=== PATIENT | female | born 1980 | race American Indian/Alaskan Native ===

== ENCOUNTER 2018-08-18 21:27 | Emergency (ER) | payer MEDICARE ==
[2018-08-18] MEDS ORDERED: TORADOL IV ONE (21:57)
[2018-08-18] MEDS ORDERED: ATROVENT IH ONE (21:57)
[2018-08-18] MEDS ORDERED: PROVENTIL IH ONE (21:57)
[2018-08-18] MEDS ORDERED: NACL 0.9% 500 ML 500 ML IV ONE (21:57)
[2018-08-18] MEDS ORDERED: SOLU-Medrol IV ONE (21:57)
[2018-08-18] MEDS ORDERED: MAGNESIUM SULFATE 2GM/50ML 2 GM/50 ML BAG IV ONE (21:58)
[2018-08-18 22:41] LABS: Hematocrit 31.7 % (30.3-42.9); Hemoglobin 10.3 gm/dl (10.1-14.3); Mean Corpuscular HGB Conc 33 % (30-34); Mean Corpuscular Volume 82 fl (79-97); Platelet Count 260 K/mm3 (140-440); Red Blood Count 3.86 M/mm3 (3.65-5.03); Red Cell Distribution Width 18.1 % (13.2-15.2)
[2018-08-18 22:51] LABS: INR 0.79 (0.87-1.13)
--- NOTE | 2018-08-18 23:26 | XRay Report ---
FINAL REPORT PROCEDURE: XR ABD SERIES W CXR 1V TECHNIQUE: Abdominal series complete, including supine and upright AP views of the abdomen and front al chest. HISTORY: back pain dyspnea abd pain COMPARISON: No prior studies are available for comparison. FINDINGS: Heart: Normal. Mediastinum/Vessels: Normal. Lungs/Pleural space: No focal infiltrate. Right lung granuloma. Bowel gas pattern: Nonobstructive. Masses or calcifications: None. Bony structures: No acute osseous abnormality. Other: No free intraperitoneal air. IMPRESSION: No acute abnormality.
--- NOTE | 2018-08-18 23:31 | Emergency Department Report ---
ED General Adult HPI - General Chief complaint: Chest Pain Stated complaint: BLAS Time Seen by Provider: 08/18/18 21:39 Source: patient, EMS (ems notes not available at time of chart dictation), RN notes reviewed Mode of arrival: Stretcher Limitations: No Limitations - History of Present Illness Initial comments: This is a 38-year-old female who is not known to this provider previously. Has a history of asthma, reported congestive heart failure (we do not know what her ejection fraction is), hypertension, history of appendectomy, . May lennon ve a history of achondroplasia. Patient also has a history of psychiatric disease, may have a history of narcotic dependence, but not currently. Patient reports multiple hospitalizations for asthma in the past, and 2 lifetime intubations. The patient presents to the emergency room today with a complaint of back pain, shortness of breath, wheezing, abdominal distention, dysuria, and bilateral fl ank pain. The symptoms have been present for 6-7 days. They're constant. They worsened with physical exertion, palpation, twisting, and decreased with rest, and nebulized therapy. The patient denies DVT, pulmonary embolus risk factors. To me, she makes no complaint of chest pain. The patient also endorses dysuria. -: Gradual, days(s) Location: back, abdomen Radiation: non-radiation Severity scale (0 -10): 10 Quality: aching Consistency: other Improves with: other Worsens with: other Associated Symptoms: cough, loss of appetite, malaise, shortness of breath, w eakness. denies: confusion, chest pain, diaphoresis, fever/chills, headaches, nausea/vomiting, rash, seizure, syncope - Related Data Previous Rx's Medication Instructions Recorded Last Taken Type Acetaminophen [Tylenol Arthritis] 650 mg PO Q6HR PRN #30 tablet.er 08/19/18 Unknown Rx Albuterol Sulfate [Proair 90 mcg IH Q4HR PRN #2 aer.pow.ba 08/19/18 Unknown Rx Respiclick] Ibuprofen [Motrin] 600 mg PO Q8H PRN #30 tablet 08/19/18 Unknown Rx Ipratropium [place] [Atrovent Hfa] 12.9 gm IH Q4HR #1 hfa.aer.ad 08/19/18 Unknown Rx predniSONE [Deltasone] 40 mg PO QDAY #8 tab 08/19/18 Unknown Rx Allergies Allergy/AdvReac Type Severity Reaction Status Date / Time Penicillins Allergy Anaphylaxis Verified 08/18/18 23:30 Sulfa (Sulfonamide AdvReac Anaphylaxis Verified 08/18/18 23:30 Antibiotics) ED Review of Systems ROS: Stated complaint: BLSA Other details as noted in HPI Constitutional: malaise. denies: fever Eyes: denies: vision change ENT: congestion Respiratory: shortness of breath, wheezing Cardiovascular: denies: chest pain Gastrointestinal: abdominal pain Genitourinary: urgency Musculoskeletal: back pain Skin: denies: lesions Neurological: weakness Psychiatric: anxiety ED Past Medical Hx - Past Medical History Previous Medical History?: Yes Hx Hypertension: Yes Hx Congestive Heart Failure: Yes Hx Asthma: Yes - Surgical History Past Surgical History?: Yes Hx Appendectomy: Yes Additional Surgical History: C-Sectionx2 - Social History Smoking Status: Heavy Tobacco Smoker Substance Use Type: None, Other - Medications Home Medications: Home Medications Medication Instructions Recorded Confirmed Last Taken Type Acetaminophen [Tylenol Arthritis] 650 mg PO Q6HR PRN #30 tablet.er 08/19/18 Unknown Rx Albuterol Sulfate [Proair 90 mcg IH Q4HR PRN #2 aer.pow.ba 08/19/18 Unknown Rx Respiclick] Ibuprofen [Motrin] 600 mg PO Q8H PRN #30 tablet 08/19/18 Unknown Rx Ipratropium [place] [Atrovent Hfa] 12.9 gm IH Q4HR #1 hfa.aer.ad 08/19/18 Unknown Rx predniSONE [Deltasone] 40 mg PO QDAY #8 tab 08/19/18 Unknown Rx ED Physical Exam - General Limitations: No Limitations General appearance: alert, obese - Head Head exam: Present: atraumatic, normocephalic - Eye Eye exam: Present: normal appearance - ENT ENT exam: Present: normal exam, normal orophraynx, mucous membranes moist, normal external ear exam - Neck Neck exam: Present: normal inspection, full ROM. Absent: tenderness, meningismus - Respiratory Respiratory exam: Present: respiratory distress, wheezes, rhonchi - Cardiovascular Cardiovascular Exam: Present: normal rhythm, tachycardia, normal heart sounds. Absent: systolic murmur, diastolic murmur, rubs, gallop - GI/Abdominal GI/Abdominal exam: Present: soft, distended. Absent: tenderness, guarding, rebound, rigid, pulsatile mass - Extremities Exam Extremities exam: Present: normal inspection, full ROM, other (2+ pulses noted in the bilateral upper, lower extremities. Compartments soft. No long bony tenderness. The pelvis is stable.). Absent: pedal edema, calf tenderness - Back Exam Back exam: Present: normal inspection, full ROM, tenderness, paraspinal tenderness, other (reproducible muscular tenderness). Absent: CVA tenderness (R), CVA tenderness (L), vertebral tenderness - Neurological Exam Neurological exam: Present: alert, oriented X3, other (Extraocular movements intact. Tongue midline. No facial droop. Facial sensation intact to light touch in the V1, V2, V3 distribution bilaterally. 5 and 5 strength in 4 extremities.. Sensation is intact to light touch in 4 extremities.). Absent: motor sensory deficit - Psychiatric Psychiatric exam: Present: anxious - Skin Skin exam: Present: warm, dry, intact, normal color. Absent: rash ED Course Vital Signs 08/18/18 08/18/18 08/18/18 21:45 22:00 23:00 Temperature Pulse Rate 107 H 100 H 104 H Respiratory 16 17 16 Rate Blood Pressure 112/44 107/66 Blood Pressure 112/44 [Left] O2 Sat by Pulse 95 96 Oximetry 08/18/18 08/19/18 23:53 00:44 Temperature 98.4 F Pulse Rate 96 H Respiratory 18 Rate Blood Pressure Blood Pressure 112/60 [Left] O2 Sat by Pulse 98 Oximetry - Reevaluation(s) Reevaluation #1: 08/18/18 23:29 Differential diagnosis, including but not limited to: Muscular back pain, pneumonia, acute coronary syndrome, pulmonary embolus, costochondritis, asthma exacerbation, constipation, obstruction, pyelonephritis Assessment and plan: 38-year-old female with multiple complaints, including back pain, wheezing, shortness of breath, constipation, decreased bowel movements, dysuria, flank pain, abdominal distention. History appears to be erratic, she informs me that she is not having chest pain, but she told to nurses that she is having chest pain. Reports no pulmonary embolus or DVT risk factors and she is low risk by well's criteria. We will treat her with albuterol, Atrovent, steroids, magnesium, and ketorolac. X-ray of the chest, abdomen, pelvis unremarkable. D-dimer elevated. CT scan of the chest, abdomen, pelvis pending, urinalysis pending. We will reassess after initial data points. I find the patient to be low risk by the heart score. Reevaluation #2: 08/19/18 02:08 The patient is reassessed. Wheezing has resolved. Heart rate in the high 90s. Saturating in the high 90s. CT scan of the chest is negative. CT scan of the abdomen pelvis is negative. Urinalysis not consistent with urinary tract infection. No back muscular tenderness is appreciated on repeat physical examination. On multiple repeat follow-ups, patient is resting comfortably, in her stretcher, in no acute distress. Patient is medically suitable at this point time to be discharged to follow-up. ED Medical Decision Making - Lab Data Result diagrams: 08/18/18 22:15 08/18/18 22:15 Vital Signs 08/18/18 21:45 Pulse Rate 107 H Respiratory 16 Rate Blood Pressure 112/44 [Left] O2 Sat by Pulse 95 Oximetry Lab Results 08/18/18 08/18/18 08/18/18 Range/Units 22:15 22:15 Unknown WBC 10.3 (4.5-11.0) K/mm3 RBC 3.86 (3.65-5.03) M/mm3 Hgb 10.3 (10.1-14.3) gm/dl Hct 31.7 (30.3-42.9) % MCV 82 (79-97) fl MCH 27 L (28-32) pg MCHC 33 (30-34) % RDW 18.1 H (13.2-15.2) % Plt Count 260 (140-440) K/mm3 PT 11.4 L (12.2-14.9) Sec. INR 0.79 L (0.87-1.13) D-Dimer 268.63 H (0-234) ng/mlDDU - EKG Data -: EKG Interpreted by [place] EKG shows normal: sinus rhythm - EKG Data When compared to previous EKG there are: previous EKG unavailable 08/18/18 23:31 Tachycardia, 107 bpm, normal axis, QTC within normal limits, nonspecific T-wave abnormality, abnormal EKG, not consistent with ST elevation myocardial infarction. There is no prior for comparison. - Radiology Data Radiology results: report reviewed, image reviewed interpreted by me: X-ray chest is negative for acute disease. X-ray of the abdomen and pelvis negative for acute disease, nonspecific bowel gas pattern noted. CT scan of the chest is negative for acute disease. CT scan of the abdomen and pelvis is negative for acute disease. Critical care attestation.: If time is entered above; I have spent that time in minutes in the direct care of this critically ill patient, excluding procedure time. ED Disposition Clinical Impression: Back pain, Asthma exacerbation Disposition: TO HOME OR SELFCARE Is pt being admited?: No Does the pt Need Aspirin: No Condition: Stable Instructions: Asthma (ED) Additional Instructions: Take medications as needed/directed. Rest, and avoid heavy lifting, and avoid strenuous physical activities. Use the breathing medications as needed/directed. Follow-up with a home school liaison officer, or primary care doctor within the next 3-5 days. Follow-up with her primary care doctor, or tire vulcanizer within the next month for your asthma. Return to the emergency room right away with new pain, worsened pain, migration of pain, projectile vomiting, change in mental status, confusion, new, worsening or different symptoms. Referrals: [facility] [Provider Group] - 3-5 Days [facility] [Provider Group] - 3-5 Days JANKI OCONNOR MD [Primary Care Provider] - as needed SCAR AMATO MD [Staff Physician] - as needed
[2018-08-18 23:39] LABS: BUN/Creatinine Ratio 23; Blood Urea Nitrogen 14 mg/dL (7-17); Calcium 8.8 mg/dL (8.4-10.2); Hemolysis Index 8
--- NOTE | 2018-08-19 01:10 | Cat Scan Report ---
FINAL REPORT PROCEDURE: CT ANGIO CHEST TECHNIQUE: Computerized tomographic angiography of the chest was performed after the IV injection of iodinated nonionic contrast including image processing. The image data was postprocessed using 2-dim ensional multiplanar reformatted (MPR) and 3-dimensional (MIP and/or volume rendered) techniques. HISTORY: back pain sob hypoxioa COMPARISON: No prior studies are available for comparison. FINDINGS: Heart and pericardium: Normal. Thoracic aorta: There is no evidence of pulmonary arterial emboli. Pulmonary vasculature: Normal. Lymph nodes: No enlarged thoracic lymph nodes. Lungs: The lungs are clear. No infiltrate, effusion or pneumothorax.. Pleural space: No effusion, thickening, or pneumothorax. Musculoskeletal structures: No significant abnormality. Upper abdominal structures: No significant abnormality. IMPRESSION: There is no evidence of pulmonary arterial emboli. The lungs are clear without infiltrate, effusion or pneumothorax
--- NOTE | 2018-08-19 01:16 | Cat Scan Report ---
FINAL REPORT PROCEDURE: CT ABDOMEN PELVIS W CON TECHNIQUE: Computerized axial tomography of the abdomen and pelvis was performed after the IV inject ion of iodinated nonionic contrast. HISTORY: abd pain swelling back pain COMPARISON: No prior studies are available for comparison. FINDINGS: Visualized lower thorax: No significant abnormality. Liver: Normal size and attenuation. Spleen: Normal size and attenuation. Gallbladder and biliary system: Normal. Pancreas: Normal. Adrenals: Normal. Kidneys: Normal. GI tract: No obstruction. The cecum and appendix are normal. The colon is normal.. Lymph nodes and mesentery: Normal. Vasculature: Normal. Bladder: Normal. Reproductive organs: Uterus is normal. There are bilateral ovarian cysts. The largest cyst measures 2 .5 centimeters.. Peritoneum: No free fluid. Musculoskeletal structures: No significant abnormality. Other: None. IMPRESSION: There is no evidence of intestinal or urinary tract obstruction. No ileus or enteritis. The appendix is normal. Bilateral ovarian cysts are identified, these measure up to 2 centimeters.
[2018-08-19 01:37] LABS: Bilirubin,Urine NEG (Negative); Blood,Urine NEG (Negative); Color,Urine Straw (Yellow); Protein,Urine <15 mg/dL mg/dL (Negative); Urobilinogen,Urine < 2.0 mg/dL (<2.0); WBC,Urine < 1.0 /HPF (0.0-6.0)
[2018-08-19 03:11] VITALS: BP 152/90
== END 2018-08-19 03:13 | disposition home or self-care (01) ==
LOC: ED 21:27
DX: M54.89 Other dorsalgia (principal); J45.901 Unspecified asthma with (acute) exacerbation; I11.0 Hypertensive heart disease with heart failure; I50.9 Heart failure, unspecified; Z90.49 Acquired absence of other specified parts of digestive tract; F17.200 Nicotine dependence, unspecified, uncomplicated; Z88.2 Allergy status to sulfonamides; Z88.0 Allergy status to penicillin
CPT/HCPCS: 36415; 71275; 74022; 74177; 80048; 81001; 83735; 84484; 84702; 85027; 85379; 85610; 87086; 93005; 93010; 94640; 96365; 96375; 99285; J1885; J2930; J3475; J7040; Q9967

== ENCOUNTER 2018-08-28 20:03 | Inpatient (IN) | payer MEDICARE ==
--- NOTE | 2018-08-28 20:31 | Emergency Department Report ---
Blank Doc - Documentation Documentation: This is a 38-year-old female that presents with SOB and CP x3 days. Stated has radiates to left arm. PMH: CHF, SD, COPD, asthma Sats in 94% in triage on room air. This initial assessment diagnostic orders/clinical plan/treatment(s) is/are subject to change based on patient's health status, clinical progression and re- assessment by fellow clinical providers in the ED. Further treatment and workup at subsequent clinical providers discretion. Patient/guardians urged not to elope from ED s their condition may be serious if not clinically assessed and managed. Initial orders include: 1-Patient sent to MAIN ED for further evaluation and treatment 2- EKG 3- Labs 4- CXR
[2018-08-28] MEDS ORDERED: ATROVENT IH ONE (20:47)
[2018-08-28] MEDS ORDERED: PROVENTIL IH ONE (20:47)
[2018-08-28] MEDS ORDERED: SOLU-Medrol IV ONE (21:22)
[2018-08-28] MEDS ORDERED: LASIX IV ONE (21:25)
--- NOTE | 2018-08-28 21:25 | Emergency Department Report ---
ED Shortness of Breath HPI - General Chief Complaint: Chest Pain Stated Complaint: ASTHMA/COPD Time Seen by Provider: 08/28/18 20:34 Source: patient Mode of arrival: Ambulatory Limitations: No Limitations - History of Present Illness Initial Comments: Patient is 38 years old female with history of COPD, congestive heart failure, coronary artery disease and diabetes. Patient presented to the ER complaining of shortness of breath for the last 2 days. Patient initial oxygen saturation was 92% on room air. Patient denied any fever or chills. No nausea or vomiting. Patient stated that she has been using her albuterol breathing treatment was no significant improvement. MD Complaint: shortness of breath, cough -: Last night Consistency: constant Known History Of: COPD, congestive heart failure Context: recent URI - Related Data Home Oxygen Therapy: Yes Home Oxygen Amount: 2 Liters Previous Rx's Medication Instructions Recorded Last Taken Type Acetaminophen [Tylenol Arthritis] 650 mg PO Q6HR PRN #30 tablet.er 08/19/18 Unknown Rx Albuterol Sulfate [Proair 90 mcg IH Q4HR PRN #2 aer.pow.ba 08/19/18 Unknown Rx Respiclick] Ibuprofen [Motrin] 600 mg PO Q8H PRN #30 tablet 08/19/18 Unknown Rx Ipratropium [place] [Atrovent Hfa] 12.9 gm IH Q4HR #1 hfa.aer.ad 08/19/18 Unknown Rx predniSONE [Deltasone] 40 mg PO QDAY #8 tab 08/19/18 Unknown Rx Allergies Allergy/AdvReac Type Severity Reaction Status Date / Time Penicillins Allergy Anaphylaxis Verified 08/18/18 23:30 Sulfa (Sulfonamide AdvReac Anaphylaxis Verified 08/18/18 23:30 Antibiotics) ED Review of Systems ROS: Stated complaint: ASTHMA/COPD Other details as noted in HPI Comment: All other systems reviewed and negative Constitutional: denies: chills, fever Respiratory: cough, orthopnea, shortness of breath, SOB with exertion, SOB at rest, wheezing. denies: stridor Cardiovascular: chest pain, palpitations Musculoskeletal: denies: back pain Neurological: denies: headache, weakness ED Past Medical Hx - Past Medical History Hx Hypertension: Yes Hx Heart Attack/AMI: Yes (2 ATTACKS,NO STENTS) Hx Congestive Heart Failure: Yes Hx Diabetes: Yes Hx Asthma: Yes Hx COPD: Yes - Surgical History Hx Appendectomy: Yes Additional Surgical History: C-Sectionx2 - Social History Smoking Status: Never Smoker Substance Use Type: None - Medications Home Medications: Home Medications Medication Instructions Recorded Confirmed Last Taken Type Acetaminophen [Tylenol Arthritis] 650 mg PO Q6HR PRN #30 tablet.er 08/19/18 Unknown Rx Albuterol Sulfate [Proair 90 mcg IH Q4HR PRN #2 aer.pow.ba 08/19/18 Unknown Rx Respiclick] Ibuprofen [Motrin] 600 mg PO Q8H PRN #30 tablet 08/19/18 Unknown Rx Ipratropium [place] [Atrovent Hfa] 12.9 gm IH Q4HR #1 hfa.aer.ad 08/19/18 Unknown Rx predniSONE [Deltasone] 40 mg PO QDAY #8 tab 08/19/18 Unknown Rx ED Physical Exam - General Limitations: No Limitations General appearance: alert, in distress - Head Head exam: Present: atraumatic, normocephalic, normal inspection - Eye Eye exam: Present: normal appearance, PERRL - ENT ENT exam: Present: normal exam, normal orophraynx, mucous membranes moist - Neck Neck exam: Present: normal inspection, full ROM. Absent: tenderness, meningismus, lymphadenopathy, thyromegaly - Respiratory Respiratory exam: Present: respiratory distress, wheezes, rhonchi, decreased b reath sounds, prolonged expiratory. Absent: stridor - Cardiovascular Cardiovascular Exam: Present: tachycardia, normal heart sounds - GI/Abdominal GI/Abdominal exam: Present: soft, normal bowel sounds. Absent: distended, tenderness, guarding, rebound, rigid - Extremities Exam Extremities exam: Present: normal inspection, full ROM, normal capillary refill, pedal edema. Absent: calf tenderness - Back Exam Back exam: Present: normal inspection, full ROM. Absent: tenderness, CVA tenderness (R), CVA tenderness (L), muscle spasm, paraspinal tenderness, vertebral tenderness - Neurological Exam Neurological exam: Present: alert, oriented X3, CN II-XII intact - Skin Skin exam: Present: warm, intact, normal color ED Course Vital Signs 08/28/18 08/28/18 08/28/18 20:31 21:07 21:08 Temperature 98.1 F Pulse Rate 115 H Pulse Rate [ 100 H Anterior] Respiratory 26 H Rate Respiratory 24 Rate [Anterior] Blood Pressure Blood Pressure [Left] O2 Sat by Pulse 99 98 Oximetry 08/28/18 08/28/18 08/28/18 21:29 21:30 21:45 Temperature Pulse Rate 115 H 105 H 131 H Pulse Rate [ Anterior] Respiratory 13 17 23 Rate Respiratory Rate [Anterior] Blood Pressure 158/100 Blood Pressure [Left] O2 Sat by Pulse 98 99 99 Oximetry 08/28/18 08/28/18 08/28/18 22:00 22:15 22:30 Temperature Pulse Rate Pulse Rate [ Anterior] Respiratory 15 15 17 Rate Respiratory Rate [Anterior] Blood Pressure 158/96 167/114 151/95 Blood Pressure [Left] O2 Sat by Pulse 94 97 Oximetry 08/28/18 08/28/18 22:45 22:53 Temperature Pulse Rate 110 H Pulse Rate [ Anterior] Respiratory 20 Rate Respiratory Rate [Anterior] Blood Pressure 151/95 Blood Pressure 150/97 [Left] O2 Sat by Pulse 96 93 Oximetry ED Medical Decision Making - Lab Data Result diagrams: 08/28/18 21:17 08/28/18 21:17 - EKG Data -: EKG Interpreted by [place] EKG shows normal: sinus rhythm Rate: tachycardia - EKG Data Interpretation: no acute changes - Radiology Data Radiology results: report reviewed Referring Physician: LILI CHAUHAN Patient Name: CRISTIN BEST Date of : 1980 Sex: Female Report Date: 2018-08-28 Report Status: Finalized Findings [address] [address] XRay Report Signed Patient: CRISTIN BEST MR#: [id number] : 1980 Acct:[id number] Age/Sex: 38 / F ADM Date: 08/28/18 Loc: ED Attending Dr: Ordering Physician: LILI CHAUHAN NP Date of Service: 08/28/18 Procedure(s): XR chest 1V ap Accession Number(s): [id number] cc: LILI CHAUHAN NP Fluoro Time In Minutes: FINAL REPORT PROCEDURE: XR CHEST 1V AP TECHNIQUE: Chest radiograph anteroposterior view. CPT 81068 HISTORY: Chest Pain COMPARISON: No prior studies are available for comparison. FINDINGS: Heart: Normal. Mediastinum/Vessels: Normal. Lungs/Pleural space: 4 millimeter calcific density is noted in the right lower lung consistent with an old healed granuloma. Otherwise bilateral lungs are free of infiltrates arm mass lesions. Pleural spaces are clear.. Bony thorax: No acute osseous abnormality. Life support devices: None. IMPRESSION: No acute pulmonary process. Transcribed By: [facility] Dictated By: SARA TYSON Electronically Authenticated By: SARA TYSON Signed Date/Time: 08/28/182249 DD/ 47 TD/TT: 08/28/182247 - Medical Decision Making Patient is 38 years old female with history of COPD, congestive heart failure, coronary artery disease and diabetes. Patient presented to the ER complaining of shortness of breath for the last 2 days. Patient initial oxygen saturation was 92% on room air. Patient denied any fever or chills. No nausea or vomiting. Patient stated that she has been using her albuterol breathing treatment was no significant improvement. Patient received albuterol 10 mg, Atrovent 1 mg and patient require more breathing and treatment. EKG did not show any ST elevation. A chest x-ray is negative for acute finding. First troponin is negative. I discussed the patient is Dr. Watson, she admitted to admit the patient to medical service. Critical Care Time: Yes Critical care time in (mins) excluding proc time.: 30 Critical care attestation.: If time is entered above; I have spent that time in minutes in the direct care of this critically ill patient, excluding procedure time. ED Disposition Clinical Impression: COPD with exacerbation, Chest pain Disposition: OP ADMIT IP TO THIS HOSP Is pt being admited?: Yes Condition: Stable Instructions: Chronic Obstructive Pulmonary Disease (ED), Chest Pain (ED) Referrals: OLVIN WATKINS MD [Primary Care Provider] - 3-5 Days
[2018-08-28 21:26] LABS: Hemoglobin 10.8 gm/dl (10.1-14.3); Mean Corpuscular HGB Conc 33 % (30-34); Mean Corpuscular Volume 83 fl (79-97); Platelet Count 362 K/mm3 (140-440); Red Blood Count 3.97 M/mm3 (3.65-5.03); Red Cell Distribution Width 17.9 % (13.2-15.2)
[2018-08-28 21:52] LABS: Alanine Aminotransferase 18 units/L (7-56); Albumin 4.5 g/dL (3.9-5); BUN/Creatinine Ratio 16; Blood Urea Nitrogen 13 mg/dL (7-17); Calcium 9.6 mg/dL (8.4-10.2); Hemolysis Index 6
[2018-08-28 22:13] LABS: Anisocytosis 2+; Basophils % (Manual) 0 % (0.0-1.8); Eosinophils % (Manual) 0 % (0.0-4.3); Total Cells Counted 100
--- NOTE | 2018-08-28 22:50 | XRay Report ---
FINAL REPORT PROCEDURE: XR CHEST 1V AP TECHNIQUE: Chest radiograph anteroposterior view. CPT 51672 HISTORY: Chest Pain COMPARISON: No prior studies are available for comparison. FINDINGS: Heart: Normal. Mediastinum/Vessels: Normal. Lungs/Pleural space: 4 millimeter calcific density is noted in the right lower lung consistent with a n old healed granuloma. Otherwise bilateral lungs are free of infiltrates arm mass lesions. Pleural s paces are clear.. Bony thorax: No acute osseous abnormality. Life support devices: None. IMPRESSION: No acute pulmonary process.
[2018-08-28] MEDS ORDERED: XOPENEX IH ONE (23:29)
[2018-08-29] MEDS ORDERED: MILK OF MAGNESIA PO PRN (00:21)
[2018-08-29] MEDS ORDERED: ZOFRAN IV PRN (00:21)
[2018-08-29] MEDS ORDERED: SODIUM CHLORIDE FLUSH SYRINGE 10 ML IV PRN (00:21)
[2018-08-29] MEDS ORDERED: TYLENOL PO PRN (00:21)
[2018-08-29] MEDS ORDERED: D50W (25GM) Syringe IV PRN (00:28)
--- NOTE | 2018-08-29 00:57 | History and Physical Report ---
History of Present Illness Date of examination: 08/29/18 Date of admission: 08/29/18 00:21 Chief complaint: Shortness of breath History of present illness: Patient is 38 years old female with history of COPD, coronary artery disease and diabetes who presented to the ER complaining of shortness of breath for the last 2 days. Of note, during my history taking, patient was unable to keep awake to answer my questions, so history was obtained from the chart. She has associated cough, chest pain and palpitation. No reported history of fever, chills, nausea or vomiting. Patient stated that she has been using her albuterol breathing treatment without improvement. Past History Past Medical History: CAD, COPD (on home O2 at 2 L), diabetes, hypertension, other (CHF) Past Surgical History: appendectomy, Social history: no significant social history Family history: other (could not be obtained ) Medications and Allergies Allergies Allergy/AdvReac Type Severity Reaction Status Date / Time Penicillins Allergy Anaphylaxis Verified 08/18/18 23:30 Sulfa (Sulfonamide AdvReac Anaphylaxis Verified 08/18/18 23:30 Antibiotics) Home Medications Medication Instructions Recorded Confirmed Last Taken Type Acetaminophen [Tylenol Arthritis] 650 mg PO Q6HR PRN #30 tablet.er 08/19/18 08/29/18 08/28/18 Rx Albuterol Sulfate [Proair 90 mcg IH Q4HR PRN #2 aer.pow.ba 08/19/18 08/29/18 08/28/18 Rx Respiclick] Ibuprofen [Motrin] 600 mg PO Q8H PRN #30 tablet 08/19/18 08/29/18 08/28/18 Rx Ipratropium [place] [Atrovent Hfa] 12.9 gm IH Q4HR #1 hfa.aer.ad 08/19/18 08/29/18 08/28/18 Rx predniSONE [Deltasone] 40 mg PO QDAY #8 tab 08/19/18 08/29/18 08/28/18 Rx Active Meds: Active Medications Acetaminophen (Tylenol) 650 mg PO Q4H PRN PRN Reason: Pain MILD(1-3)/Fever >100.5/SOLORZANO Acetaminophen/Hydrocodone Bitart ([place] 5/325) 1 each PO Q6H PRN PRN Reason: Pain, Moderate (4-6) Dextrose (D50w (25gm) Syringe) 50 ml IV PRN PRN PRN Reason: Hypoglycemia Enoxaparin Sodium (Lovenox) 40 mg SUB-Q DAILY [facility] Guaifenesin (Mucinex Er) 600 mg PO BID [facility] Azithromycin 500 mg/ Sodium (Chloride) 250 mls @ 250 mls/hr IV Q24HR [facility] Insulin Glargine (Lantus) 15 units SUB-Q BID [facility] Insulin Human Lispro (Humalog) 0 unit SUB-Q ACHS [facility]I; Protocol Ipratropium [place] (Atrovent) 0.5 mg IH Q6HRT [facility] Levalbuterol HCl (Xopenex) 0.63 mg IH Q6HRT [facility] Magnesium Hydroxide (Milk Of Magnesia) 30 ml PO Q4H PRN PRN Reason: Constipation Methylprednisolone Sodium Succinate (Solu-Medrol) 60 mg IV Q8HR [facility] Ondansetron HCl (Zofran) 4 mg IV Q8H PRN PRN Reason: Nausea And Vomiting Sodium Chloride (Sodium Chloride Flush Syringe 10 Ml) 10 ml IV BID [facility] Sodium Chloride (Sodium Chloride Flush Syringe 10 Ml) 10 ml IV PRN PRN PRN Reason: LINE FLUSH Review of Systems ROS unobtainable: due to mental status (unable to obtain because patient wasn't able to keep awake during questioning) Exam - Constitutional Vitals: Temp Pulse Resp BP Pulse Ox 98.1 F 110 H 20 150/97 93 08/28/18 20:31 08/28/18 22:53 08/28/18 22:53 08/28/18 22:53 08/28/18 22:53 General appearance: Present: no acute distress - EENT Eyes: Present: PERRL, EOM intact ENT: hearing intact, clear oral mucosa - Neck Neck: Present: supple, normal ROM - Respiratory Respiratory effort: normal Respiratory: bilateral: diminished - Cardiovascular Rhythm: regular (tachycardia) Heart Sounds: Present: S1 & S2. Absent: rub, click - Extremities Extremities: No edema Peripheral Pulses: within normal limits - Abdominal General gastrointestinal: Present: soft, non-tender, non-distended, normal bowel sounds Female genitourinary: Present: deferred - Integumentary Integumentary: Present: clear, warm, dry - Musculoskeletal Musculoskeletal: gait normal, strength equal bilaterally - Neurologic Neurologic: CNII-XII intact, moves all extremities Results - Labs CBC & Chem 7: 08/28/18 21:17 08/28/18 21:17 Labs: Laboratory Last Values WBC 13.6 K/mm3 (4.5-11.0) H 08/28/18 21:17 RBC 3.97 M/mm3 (3.65-5.03) 08/28/18 21:17 Hgb 10.8 gm/dl (10.1-14.3) 08/28/18 21:17 Hct 33.0 % (30.3-42.9) 08/28/18 21:17 MCV 83 fl (79-97) 08/28/18 21: MCH 27 pg (28-32) L 08/28/18 21: MCHC 33 % (30-34) 08/28/18 21: RDW 17.9 % (13.2-15.2) H 08/28/18 21:17 Plt Count 362 K/mm3 (140-440) 08/28/18 21:17 Add Manual Diff Complete 08/28/18 21:17 Total Counted 100 08/28/18 21:17 Seg Neuts % (Manual) 83.0 % (40.0-70.0) H 08/28/18 21:17 Band Neutrophils % 0 % 08/28/18 21:17 Lymphocytes % (Manual) 12.0 % (13.4-35.0) L 08/28/18 21:17 Reactive Lymphs % (Man) 0 % 08/28/18 21:17 Monocytes % (Manual) 5.0 % (0.0-7.3) 08/28/18 21:17 Eosinophils % (Manual) 0 % (0.0-4.3) 08/28/18 21:17 Basophils % (Manual) 0 % (0.0-1.8) 08/28/18 21:17 Metamyelocytes % 0 % 08/28/18 21:17 Myelocytes % 0 % 08/28/18 21:17 Promyelocytes % 0 % 08/28/18 21:17 Blast Cells % 0 % 08/28/18 21:17 Nucleated RBC % Not Reportable 08/28/18 21:17 Seg Neutrophils # Man 11.3 K/mm3 (1.8-7.7) H 08/28/18 21:17 Band Neutrophils # 0.0 K/mm3 08/28/18 21:17 Lymphocytes # (Manual) 1.6 K/mm3 (1.2-5.4) 08/28/18 21:17 Abs React Lymphs (Man) 0.0 K/mm3 08/28/18 21:17 Monocytes # (Manual) 0.7 K/mm3 (0.0-0.8) 08/28/18 21:17 Eosinophils # (Manual) 0.0 K/mm3 (0.0-0.4) 08/28/18 21:17 Basophils # (Manual) 0.0 K/mm3 (0.0-0.1) 08/28/18 21:17 Metamyelocytes # 0.0 K/mm3 08/28/18 21:17 Myelocytes # 0.0 K/mm3 08/28/18 21:17 Promyelocytes # 0.0 K/mm3 08/28/18 21:17 Blast Cells # 0.0 K/mm3 08/28/18 21:17 WBC Morphology Not Reportable 08/28/18 21:17 Hypersegmented Neuts Not Reportable 08/28/18 21:17 Hyposegmented Neuts Not Reportable 08/28/18 21:17 Hypogranular Neuts Not Reportable 08/28/18 21:17 Smudge Cells Not Reportable 08/28/18 21:17 Toxic Granulation Not Reportable 08/28/18 21:17 Toxic Vacuolation Not Reportable 08/28/18 21:17 Dohle Bodies Not Reportable 08/28/18 21:17 Pelger-Huet Anomaly Not Reportable 08/28/18 21:17 Meenu Rods Not Reportable 08/28/18 21:17 Platelet Estimate Appears normal 08/28/18 21:17 Clumped Platelets Not Reportable 08/28/18 21:17 Plt Clumps, EDTA Not Reportable 08/28/18 21:17 Large Platelets Not Reportable 08/28/18 21:17 Giant Platelets Not Reportable 08/28/18 21:17 Platelet Satelliting Not Reportable 08/28/18 21:17 Plt Morphology Comment Not Reportable 08/28/18 21:17 RBC Morphology Not Reportable 08/28/18 21:17 Dimorphic RBCs Not Reportable 08/28/18 21:17 Polychromasia Not Reportable 08/28/18 21:17 Hypochromasia Not Reportable 08/28/18 21:17 Poikilocytosis Not Reportable 08/28/18 21:17 Anisocytosis 2+ 08/28/18 21:17 Microcytosis Not Reportable 08/28/18 21:17 Macrocytosis Not Reportable 08/28/18 21:17 Spherocytes Not Reportable 08/28/18 21:17 Pappenheimer Bodies Not Reportable 08/28/18 21:17 Sickle Cells Not Reportable 08/28/18 21:17 Target Cells Not Reportable 08/28/18 21:17 Tear Drop Cells Not Reportable 08/28/18 21:17 Ovalocytes Not Reportable 08/28/18 21:17 Helmet Cells Not Reportable 08/28/18 21:17 [place] Bodies Not Reportable 08/28/18 21:17 [place] Rings Not Reportable 08/28/18 21:17 [place] Cells Not Reportable 08/28/18 21:17 Bite Cells Not Reportable 08/28/18 21:17 Crenated Cell Not Reportable 08/28/18 21:17 Elliptocytes Not Reportable 08/28/18 21:17 Acanthocytes (Spur) Not Reportable 08/28/18 21:17 Rouleaux Not Reportable 08/28/18 21:17 Hemoglobin C Crystals Not Reportable 08/28/18 21:17 Schistocytes Not Reportable 08/28/18 21:17 Malaria parasites Not Reportable 08/28/18 21:17 [place] Bodies Not Reportable 08/28/18 21:17 Hem Pathologist Commnt No 08/28/18 21:17 POC ABG pH 7.357 (7.35-7.45) 08/29/18 00:28 POC ABG pCO2 44.5 (35-45) 08/29/18 00:28 POC ABG pO2 71 (80-105) L 08/29/18 00:28 POC ABG HCO3 25.0 08/29/18 00:28 POC ABG Total CO2 26 08/29/18 00:28 POC ABG O2 Sat 93 08/29/18 00:28 POC ABG Base Excess 0 08/29/18 00:28 FiO2 100 % 08/29/18 00:28 Sodium 134 mmol/L (137-145) L 08/28/18 21:17 Potassium 4.3 mmol/L (3.6-5.0) 08/28/18 21:17 Chloride 94.5 mmol/L (98-107) L 08/28/18 21:17 Carbon Dioxide 25 mmol/L (22-30) 08/28/18 21:17 Anion Gap 19 mmol/L 08/28/18 21:17 BUN 13 mg/dL (7-17) 08/28/18 21:17 Creatinine 0.8 mg/dL (0.7-1.2) 08/28/18 21:17 Estimated GFR > 60 ml/min 08/28/18 21:17 BUN/Creatinine Ratio 16 % 08/28/18 21:17 Glucose 319 mg/dL (65-100) H 08/28/18 21:17 Calcium 9.6 mg/dL (8.4-10.2) 08/28/18 21:17 Total Bilirubin < 0.20 mg/dL (0.1-1.2) 08/28/18 21:17 AST 12 units/L (5-40) 08/28/18 21:17 ALT 18 units/L (7-56) 08/28/18 21:17 Alkaline Phosphatase 52 units/L (35-129) 08/28/18 21:17 Troponin T < 0.010 ng/mL (0.00-0.029) 08/28/18 22:59 NT-Pro-B Natriuret Pep 93.60 pg/mL (0-450) 08/28/18 21:17 Total Protein 6.9 g/dL (6.3-8.2) 08/28/18 21:17 Albumin 4.5 g/dL (3.9-5) 08/28/18 21:17 Albumin/Globulin Ratio 1.9 % 08/28/18 21:17 HCG, Qual Negative (Negative) 08/28/18 21:17 - Imaging and Cardiology Chest x-ray: report reviewed Assessment and Plan Assessment and plan: Acute COPD exacerbation, probably secondary to acute bronchitis -On IV steroid, mucinex, nebulizer breathing treatments and antibiotic Acute on chronic respiratory failure with hypoxia -Continue oxygen supplementation as needed and nebulizer breathing treatments SIRS due to noninfectious cause -We will monitor Atypical chest pain -We'll continue serial troponin level monitoring Uncontrolled hypertension -On antihypertensive, will monitor DM2 with hyperglycemia -on Lantus and SSI History of CAD, stable History of CHF, EF unknown -Echocardiogram ordered DVT prophylaxis with Lovenox Disposition: Patient will be placed on inpatient status and discharge will depend on clinical course Time spent: 38 minutes
[2018-08-29] MEDS ORDERED: LANTUS SUB-Q SCH (01:00)
[2018-08-29] MEDS: LANTUS SUB-Q SCH ×3 (01:13→21:49)
[2018-08-29] MEDS: XOPENEX IH SCH ×7 (02:50→22:40)
[2018-08-29] MEDS: ATROVENT IH SCH ×5 (02:50→19:14)
[2018-08-29] MEDS: SOLU-Medrol IV SCH ×3 (05:28→21:51)
[2018-08-29] MEDS: HumaLOG SUB-Q SCH ×4 (09:22→21:52)
[2018-08-29] MEDS: NORVASC PO SCH (12:16)
[2018-08-29] MEDS: MUCINEX ER PO SCH ×2 (12:16→21:50)
[2018-08-29] MEDS: SODIUM CHLORIDE FLUSH SYRINGE 10 ML IV SCH ×2 (12:17→21:51)
[2018-08-29] MEDS: ZITHROMAX 500 MG in NACL 0.9% 250ML 250 ML IV SCH (12:17)
[2018-08-29] MEDS: LOVENOX SUB-Q SCH (12:18)
[2018-08-29] MEDS: PROVENTIL IH PRN ×2 (14:34→17:13)
[2018-08-29] MEDS ORDERED: NON-FORMULARY (Hydroxyzine Hcl [Hydroxyzine] 50 MG) PO SCH (19:00)
[2018-08-29] MEDS: ATARAX PO SCH (23:20)
[2018-08-29] MEDS: NORCO 5/325 PO PRN (23:50)
[2018-08-30] MEDS: ATROVENT IH SCH ×4 (02:05→19:28)
[2018-08-30] MEDS: XOPENEX IH SCH ×3 (02:05→13:06)
[2018-08-30 03:59] LABS: Hemoglobin 10.7 gm/dl (10.1-14.3); Mean Corpuscular HGB Conc 32 % (30-34); Mean Corpuscular Volume 84 fl (79-97); Platelet Count 392 K/mm3 (140-440); Red Blood Count 3.92 M/mm3 (3.65-5.03); Red Cell Distribution Width 18.1 % (13.2-15.2)
[2018-08-30 04:28] LABS: BUN/Creatinine Ratio 24; Blood Urea Nitrogen 17 mg/dL (7-17); Calcium 9.2 mg/dL (8.4-10.2); Hemolysis Index 16
[2018-08-30 04:46] LABS: Anisocytosis 2+; Band Neutrophils # (Manual) 0.5 K/mm3; Basophils % (Manual) 0 % (0.0-1.8); Eosinophils % (Manual) 0 % (0.0-4.3); Ovalocytes 2+; Total Cells Counted 100
[2018-08-30 04:47] LABS: Large Platelets Few; Tear Drop Cells 1+
[2018-08-30] MEDS: ATARAX PO SCH ×4 (05:26→20:52)
[2018-08-30] MEDS: SOLU-Medrol IV SCH ×3 (05:27→21:24)
[2018-08-30] MEDS: XOPENEX IH PRN ×2 (06:21→15:36)
[2018-08-30] MEDS: HumaLOG SUB-Q SCH ×4 (09:12→21:49)
[2018-08-30] MEDS: LANTUS SUB-Q SCH ×2 (09:13→21:51)
[2018-08-30] MEDS: NORVASC PO SCH (10:12)
[2018-08-30] MEDS: ZITHROMAX 500 MG in NACL 0.9% 250ML 250 ML IV SCH (10:12)
[2018-08-30] MEDS: LOVENOX SUB-Q SCH (10:13)
[2018-08-30] MEDS: SODIUM CHLORIDE FLUSH SYRINGE 10 ML IV SCH ×2 (14:23→21:24)
[2018-08-30] MEDS: NORCO 5/325 PO PRN (15:44)
[2018-08-30] MEDS ORDERED: APRESOLINE IV PRN (16:34)
[2018-08-30] MEDS ORDERED: ROBITUSSIN AC PO PRN (16:34)
[2018-08-30] MEDS ORDERED: PERCOCET 5/325 PO PRN (16:35)
[2018-08-30] MEDS ORDERED: ATARAX PO SCH (19:00)
[2018-08-30] MEDS: MUCINEX ER PO SCH ×2 (19:05→21:18)
[2018-08-30] MEDS: BROVANA NEBU IH SCH (19:23)
[2018-08-30] MEDS: PULMICORT IH SCH (19:23)
[2018-08-30] MEDS: DUONEB *Not for PRN Use IH SCH (19:24)
[2018-08-30] MEDS ORDERED: ATIVAN IV STA (19:45)
[2018-08-30] MEDS ORDERED: ATIVAN IV PRN (19:49)
[2018-08-30 20:54] LABS: Creatine Kinase MB 2.9 ng/mL (0.0-4.0)
--- NOTE | 2018-08-30 21:08 | XRay Report ---
FINAL REPORT PROCEDURE: XR CHEST 1V AP TECHNIQUE: Chest radiograph anteroposterior view. CPT 77198 HISTORY: dyspnea COMPARISON: 08/28/2018 FINDINGS: Heart: Normal. Mediastinum/Vessels: Normal. Lungs/Pleural space: No infiltrate, effusion, or pneumothorax. Bony thorax: No acute osseous abnormality. Life support devices: None. IMPRESSION: No radiographic evidence acute cardiopulmonary abnormality.
--- NOTE | 2018-08-30 23:51 | Progress Note ---
Assessment and Plan Assessment and plan: 38F who pw sob, wheezing and cough Diagnosis COPD exacerbation acute hypoxic respiratory failure SIRS, no evidence of infection htn urgency DM type 2 with persistent hyperglycemia CHF? Plan Cont steriods, nebs and RT rx, cont oxygen supplement optimize meds for htn and DM fup echo History Interval history: Review of systems Constitutional: No fevers, no malaise, no joint pains CVS: No chest pain, no orthopnea, no dyspnea on exertion, no pedal edema GI: No abdominal pain, no diarrhea, no vomiting, no constipation Respiratory: co sob, cough and wheezing Hospitalist Physical - Physical exam Narrative exam: General.: Appears well, no distress, nontoxic HEENT: Moist mucous membranes, extraocular muscles intact, no lymphadenopathy Neck: supple Cardiac: S1-S2 heard Lungs: decreased air entry, wheezing Abdomen: soft , nontender, nondistended, bowel sounds positive Extremities: no edema clubbing or cyanosis Skin: no rash or lesions Neurologic: no gross focal deficits Psych: calm, and cooperative - Constitutional Vitals: Temp Pulse Resp BP Pulse Ox 98.1 F 109 H 27 H 179/154 100 08/30/18 16:34 08/30/18 23:48 08/30/18 23:48 08/30/18 19:54 08/30/18 23:48 General appearance: Present: no acute distress Results - Labs CBC & Chem 7: 08/30/18 03:45 08/30/18 03:45 Labs: Laboratory Last Values WBC 15.2 K/mm3 (4.5-11.0) H 08/30/18 03:45 RBC 3.92 M/mm3 (3.65-5.03) 08/30/18 03:45 Hgb 10.7 gm/dl (10.1-14.3) 08/30/18 03:45 Hct 33.0 % (30.3-42.9) 08/30/18 03:45 MCV 84 fl (79-97) 08/30/18 03:45 MCH 27 pg (28-32) L 08/30/18 03:45 MCHC 32 % (30-34) 08/30/18 03:45 RDW 18.1 % (13.2-15.2) H 08/30/18 03:45 Plt Count 392 K/mm3 (140-440) 08/30/18 03:45 Add Manual Diff Complete 08/30/18 03:45 Total Counted 100 08/30/18 03:45 Seg Neuts % (Manual) 71.0 % (40.0-70.0) H 08/30/18 03:45 Band Neutrophils % 3.0 % 08/30/18 03:45 Lymphocytes % (Manual) 16.0 % (13.4-35.0) 08/30/18 03:45 Reactive Lymphs % (Man) 0 % 08/30/18 03:45 Monocytes % (Manual) 9.0 % (0.0-7.3) H 08/30/18 03:45 Eosinophils % (Manual) 0 % (0.0-4.3) 08/30/18 03:45 Basophils % (Manual) 0 % (0.0-1.8) 08/30/18 03:45 Metamyelocytes % 1.0 % 08/30/18 03:45 Myelocytes % 0 % 08/30/18 03:45 Promyelocytes % 0 % 08/30/18 03:45 Blast Cells % 0 % 08/30/18 03:45 Nucleated RBC % Not Reportable 08/30/18 03:45 Seg Neutrophils # Man 10.8 K/mm3 (1.8-7.7) H 08/30/18 03:45 Band Neutrophils # 0.5 K/mm3 08/30/18 03:45 Lymphocytes # (Manual) 2.4 K/mm3 (1.2-5.4) 08/30/18 03:45 Abs React Lymphs (Man) 0.0 K/mm3 08/30/18 03:45 Monocytes # (Manual) 1.4 K/mm3 (0.0-0.8) H 08/30/18 03:45 Eosinophils # (Manual) 0.0 K/mm3 (0.0-0.4) 08/30/18 03:45 Basophils # (Manual) 0.0 K/mm3 (0.0-0.1) 08/30/18 03:45 Metamyelocytes # 0.2 K/mm3 08/30/18 03:45 Myelocytes # 0.0 K/mm3 08/30/18 03:45 Promyelocytes # 0.0 K/mm3 08/30/18 03:45 Blast Cells # 0.0 K/mm3 08/30/18 03:45 WBC Morphology Not Reportable 08/30/18 03:45 Hypersegmented Neuts Not Reportable 08/30/18 03:45 Hyposegmented Neuts Not Reportable 08/30/18 03:45 Hypogranular Neuts Not Reportable 08/30/18 03:45 Smudge Cells Not Reportable 08/30/18 03:45 Toxic Granulation Not Reportable 08/30/18 03:45 Toxic Vacuolation Not Reportable 08/30/18 03:45 Dohle Bodies Not Reportable 08/30/18 03:45 Pelger-[place]uet Anomaly Not Reportable 08/30/18 03:45 Meenu Rods Not Reportable 08/30/18 03:45 Platelet Estimate Appears normal 08/30/18 03:45 Clumped Platelets Not Reportable 08/30/18 03:45 Plt Clumps, EDTA Not Reportable 08/30/18 03:45 Large Platelets Few 08/30/18 03:45 Giant Platelets Not Reportable 08/30/18 03:45 Platelet Satelliting Not Reportable 08/30/18 03:45 Plt Morphology Comment Not Reportable 08/30/18 03:45 RBC Morphology Not Reportable 08/30/18 03:45 Dimorphic RBCs Not Reportable 08/30/18 03:45 Polychromasia 1+ 08/30/18 03:45 Hypochromasia Not Reportable 08/30/18 03:45 Poikilocytosis Not Reportable 08/30/18 03:45 Anisocytosis 2+ 08/30/18 03:45 Microcytosis Not Reportable 08/30/18 03:45 Macrocytosis Not Reportable 08/30/18 03:45 Spherocytes Not Reportable 08/30/18 03:45 Pappenheimer Bodies Not Reportable 08/30/18 03:45 Sickle Cells Not Reportable 08/30/18 03:45 Target Cells Not Reportable 08/30/18 03:45 Tear Drop Cells 1+ 08/30/18 03:45 Ovalocytes 2+ 08/30/18 03:45 Helmet Cells Not Reportable 08/30/18 03:45 [place] Bodies Not Reportable 08/30/18 03:45 [place] Rings Not Reportable 08/30/18 03:45 [place] Cells Not Reportable 08/30/18 03:45 Bite Cells Not Reportable 08/30/18 03:45 Crenated Cell Not Reportable 08/30/18 03:45 Elliptocytes 1+ 08/30/18 03:45 Acanthocytes (Spur) Not Reportable 08/30/18 03:45 Rouleaux Not Reportable 08/30/18 03:45 Hemoglobin C Crystals Not Reportable 08/30/18 03:45 Schistocytes Not Reportable 08/30/18 03:45 Malaria parasites Not Reportable 08/30/18 03:45 [place] Bodies Not Reportable 08/30/18 03:45 Hem Pathologist Commnt No 08/30/18 03:45 D-Dimer 168.32 ng/mlDDU (0-234) 08/30/18 20:23 POC ABG pH 7.357 (7.35-7.45) 08/29/18 00:28 POC ABG pCO2 44.5 (35-45) 08/29/18 00:28 POC ABG pO2 71 (80-105) L 08/29/18 00:28 POC ABG HCO3 25.0 08/29/18 00:28 POC ABG Total CO2 26 08/29/18 00:28 POC ABG O2 Sat 93 08/29/18 00:28 POC ABG Base Excess 0 08/29/18 00:28 FiO2 100 % 08/29/18 00:28 Sodium 137 mmol/L (137-145) 08/30/18 03:45 Potassium 4.6 mmol/L (3.6-5.0) 08/30/18 03:45 Chloride 96.8 mmol/L (98-107) L 08/30/18 03:45 Carbon Dioxide 24 mmol/L (22-30) 08/30/18 03:45 Anion Gap 21 mmol/L 08/30/18 03:45 BUN 17 mg/dL (7-17) 08/30/18 03:45 Creatinine 0.7 mg/dL (0.7-1.2) 08/30/18 03:45 Estimated GFR > 60 ml/min 08/30/18 03:45 BUN/Creatinine Ratio 24 % 08/30/18 03:45 Glucose 299 mg/dL (65-100) H 08/30/18 03:45 POC Glucose 269 (70-105) H 08/30/18 21:33 Hemoglobin A1c 7.5 % (4-6) H 08/30/18 00:18 Calcium 9.2 mg/dL (8.4-10.2) 08/30/18 03:45 Total Bilirubin < 0.20 mg/dL (0.1-1.2) 08/28/18 21:17 AST 12 units/L (5-40) 08/28/18 21:17 ALT 18 units/L (7-56) 08/28/18 21:17 Alkaline Phosphatase 52 units/L (35-129) 08/28/18 21:17 Total Creatine Kinase 416 units/L (30-135) H 08/30/18 20:23 CK-MB (CK-2) 2.9 ng/mL (0.0-4.0) 08/30/18 20:23 CK-MB (CK-2) Rel Index 0.6 (0-4) 08/30/18 20:23 Troponin T < 0.010 ng/mL (0.00-0.029) 08/30/18 20:23 NT-Pro-B Natriuret Pep 93.60 pg/mL (0-450) 08/28/18 21:17 Total Protein 6.9 g/dL (6.3-8.2) 08/28/18 21:17 Albumin 4.5 g/dL (3.9-5) 08/28/18 21:17 Albumin/Globulin Ratio 1.9 % 08/28/18 21:17 HCG, Qual Negative (Negative) 08/28/18 21:17
[2018-08-31] MEDS: ATARAX PO SCH ×3 (00:53→12:18)
[2018-08-31] MEDS: ATROVENT IH SCH (02:09)
[2018-08-31] MEDS: DUONEB *Not for PRN Use IH SCH ×3 (02:14→12:31)
[2018-08-31] MEDS ORDERED: ROBITUSSIN AC PO PRN (02:27)
[2018-08-31] MEDS: SOLU-Medrol IV SCH (05:03)
[2018-08-31] MEDS ORDERED: SPIRIVA IH SCH (09:00)
[2018-08-31] MEDS: BROVANA NEBU IH SCH (09:24)
[2018-08-31] MEDS: PULMICORT IH SCH (09:24)
--- NOTE | 2018-08-31 10:01 | Progress Note ---
Assessment and Plan Assessment and plan: 38F who pw sob, wheezing and cough Diagnosis COPD exacerbation acute hypoxic respiratory failure SIRS, no evidence of infection htn urgency DM type 2 with persistent hyperglycemia CHF was ruled out, echo wnl, no clinical evidence of CHF Plan Cont steriods, nebs and RT rx, cont oxygen supplement optimize meds for htn and DM echo was wnl History Interval history: Review of systems Constitutional: No fevers, no malaise, no joint pains CVS: No chest pain, no orthopnea, no dyspnea on exertion, no pedal edema GI: No abdominal pain, no diarrhea, no vomiting, no constipation Respiratory: co sob, cough and wheezing Hospitalist Physical - Physical exam Narrative exam: General.: Appears well, no distress, nontoxic HEENT: Moist mucous membranes, extraocular muscles intact, no lymphadenopathy Neck: supple Cardiac: S1-S2 heard Lungs: decreased air entry, wheezing Abdomen: soft , nontender, nondistended, bowel sounds positive Extremities: no edema clubbing or cyanosis Skin: no rash or lesions Neurologic: no gross focal deficits Psych: calm, and cooperative - Constitutional Vitals: Temp Pulse Resp BP Pulse Ox 97.3 F L 109 H 18 136/89 98 08/31/18 05:39 08/31/18 09:29 08/31/18 09:29 08/31/18 05:39 08/31/18 09:26 General appearance: Present: no acute distress Results - Labs CBC & Chem 7: 08/30/18 03:45 08/30/18 03:45 Labs: Laboratory Last Values WBC 15.2 K/mm3 (4.5-11.0) H 08/30/18 03:45 RBC 3.92 M/mm3 (3.65-5.03) 08/30/18 03:45 Hgb 10.7 gm/dl (10.1-14.3) 08/30/18 03:45 Hct 33.0 % (30.3-42.9) 08/30/18 03:45 MCV 84 fl (79-97) 08/30/18 03:45 MCH 27 pg (28-32) L 08/30/18 03:45 MCHC 32 % (30-34) 08/30/18 03:45 RDW 18.1 % (13.2-15.2) H 08/30/18 03:45 Plt Count 392 K/mm3 (140-440) 08/30/18 03:45 Add Manual Diff Complete 08/30/18 03:45 Total Counted 100 08/30/18 03:45 Seg Neuts % (Manual) 71.0 % (40.0-70.0) H 08/30/18 03:45 Band Neutrophils % 3.0 % 08/30/18 03:45 Lymphocytes % (Manual) 16.0 % (13.4-35.0) 08/30/18 03:45 Reactive Lymphs % (Man) 0 % 08/30/18 03:45 Monocytes % (Manual) 9.0 % (0.0-7.3) H 08/30/18 03:45 Eosinophils % (Manual) 0 % (0.0-4.3) 08/30/18 03:45 Basophils % (Manual) 0 % (0.0-1.8) 08/30/18 03:45 Metamyelocytes % 1.0 % 08/30/18 03:45 Myelocytes % 0 % 08/30/18 03:45 Promyelocytes % 0 % 08/30/18 03:45 Blast Cells % 0 % 08/30/18 03:45 Nucleated RBC % Not Reportable 08/30/18 03:45 Seg Neutrophils # Man 10.8 K/mm3 (1.8-7.7) H 08/30/18 03:45 Band Neutrophils # 0.5 K/mm3 08/30/18 03:45 Lymphocytes # (Manual) 2.4 K/mm3 (1.2-5.4) 08/30/18 03:45 Abs React Lymphs (Man) 0.0 K/mm3 08/30/18 03:45 Monocytes # (Manual) 1.4 K/mm3 (0.0-0.8) H 08/30/18 03:45 Eosinophils # (Manual) 0.0 K/mm3 (0.0-0.4) 08/30/18 03:45 Basophils # (Manual) 0.0 K/mm3 (0.0-0.1) 08/30/18 03:45 Metamyelocytes # 0.2 K/mm3 08/30/18 03:45 Myelocytes # 0.0 K/mm3 08/30/18 03:45 Promyelocytes # 0.0 K/mm3 08/30/18 03:45 Blast Cells # 0.0 K/mm3 08/30/18 03:45 WBC Morphology Not Reportable 08/30/18 03:45 Hypersegmented Neuts Not Reportable 08/30/18 03:45 Hyposegmented Neuts Not Reportable 08/30/18 03:45 Hypogranular Neuts Not Reportable 08/30/18 03:45 Smudge Cells Not Reportable 08/30/18 03:45 Toxic Granulation Not Reportable 08/30/18 03:45 Toxic Vacuolation Not Reportable 08/30/18 03:45 Dohle Bodies Not Reportable 08/30/18 03:45 Pel[place]uet Anomaly Not Reportable 08/30/18 03:45 Meenu Rods Not Reportable 08/30/18 03:45 Platelet Estimate Appears normal 08/30/18 03:45 Clumped Platelets Not Reportable 08/30/18 03:45 Plt Clumps, EDTA Not Reportable 08/30/18 03:45 Large Platelets Few 08/30/18 03:45 Giant Platelets Not Reportable 08/30/18 03:45 Platelet Satelliting Not Reportable 08/30/18 03:45 Plt Morphology Comment Not Reportable 08/30/18 03:45 RBC Morphology Not Reportable 08/30/18 03:45 Dimorphic RBCs Not Reportable 08/30/18 03:45 Polychromasia 1+ 08/30/18 03:45 Hypochromasia Not Reportable 08/30/18 03:45 Poikilocytosis Not Reportable 08/30/18 03:45 Anisocytosis 2+ 08/30/18 03:45 Microcytosis Not Reportable 08/30/18 03:45 Macrocytosis Not Reportable 08/30/18 03:45 Spherocytes Not Reportable 08/30/18 03:45 Pappenheimer Bodies Not Reportable 08/30/18 03:45 Sickle Cells Not Reportable 08/30/18 03:45 Target Cells Not Reportable 08/30/18 03:45 Tear Drop Cells 1+ 08/30/18 03:45 Ovalocytes 2+ 08/30/18 03:45 Helmet Cells Not Reportable 08/30/18 03:45 [place] Bodies Not Reportable 08/30/18 03:45 [place] Rings Not Reportable 08/30/18 03:45 [place] Cells Not Reportable 08/30/18 03:45 Bite Cells Not Reportable 08/30/18 03:45 Crenated Cell Not Reportable 08/30/18 03:45 Elliptocytes 1+ 08/30/18 03:45 Acanthocytes (Spur) Not Reportable 08/30/18 03:45 Rouleaux Not Reportable 08/30/18 03:45 Hemoglobin C Crystals Not Reportable 08/30/18 03:45 Schistocytes Not Reportable 08/30/18 03:45 Malaria parasites Not Reportable 08/30/18 03:45 [place] Bodies Not Reportable 08/30/18 03:45 Hem Pathologist Commnt No 08/30/18 03:45 D-Dimer 168.32 ng/mlDDU (0-234) 08/30/18 20:23 POC ABG pH 7.357 (7.35-7.45) 08/29/18 00:28 POC ABG pCO2 44.5 (35-45) 08/29/18 00:28 POC ABG pO2 71 (80-105) L 08/29/18 00:28 POC ABG HCO3 25.0 08/29/18 00:28 POC ABG Total CO2 26 08/29/18 00:28 POC ABG O2 Sat 93 08/29/18 00:28 POC ABG Base Excess 0 08/29/18 00:28 FiO2 100 % 08/29/18 00:28 Sodium 137 mmol/L (137-145) 08/30/18 03:45 Potassium 4.6 mmol/L (3.6-5.0) 08/30/18 03:45 Chloride 96.8 mmol/L (98-107) L 08/30/18 03:45 Carbon Dioxide 24 mmol/L (22-30) 08/30/18 03:45 Anion Gap 21 mmol/L 08/30/18 03:45 BUN 17 mg/dL (7-17) 08/30/18 03:45 Creatinine 0.7 mg/dL (0.7-1.2) 08/30/18 03:45 Estimated GFR > 60 ml/min 08/30/18 03:45 BUN/Creatinine Ratio 24 % 08/30/18 03:45 Glucose 299 mg/dL (65-100) H 08/30/18 03:45 POC Glucose 263 (70-105) H 08/31/18 08:17 Hemoglobin A1c 7.5 % (4-6) H 08/30/18 00:18 Calcium 9.2 mg/dL (8.4-10.2) 08/30/18 03:45 Total Bilirubin < 0.20 mg/dL (0.1-1.2) 08/28/18 21:17 AST 12 units/L (5-40) 08/28/18 21:17 ALT 18 units/L (7-56) 08/28/18 21:17 Alkaline Phosphatase 52 units/L (35-129) 08/28/18 21:17 Total Creatine Kinase 416 units/L (30-135) H 08/30/18 20:23 CK-MB (CK-2) 2.9 ng/mL (0.0-4.0) 08/30/18 20:23 CK-MB (CK-2) Rel Index 0.6 (0-4) 08/30/18 20:23 Troponin T < 0.010 ng/mL (0.00-0.029) 08/30/18 20:23 NT-Pro-B Natriuret Pep 93.60 pg/mL (0-450) 08/28/18 21:17 Total Protein 6.9 g/dL (6.3-8.2) 08/28/18 21:17 Albumin 4.5 g/dL (3.9-5) 08/28/18 21:17 Albumin/Globulin Ratio 1.9 % 08/28/18 21:17 HCG, Qual Negative (Negative) 08/28/18 21:17
[2018-08-31] MEDS: LANTUS SUB-Q SCH (10:20)
[2018-08-31] MEDS: LOVENOX SUB-Q SCH (10:21)
[2018-08-31] MEDS: HumaLOG SUB-Q SCH (10:21)
[2018-08-31] MEDS: NORVASC PO SCH (10:21)
--- NOTE | 2018-08-31 12:10 | Discharge Summary ---
Providers - Providers Date of Admission: 08/29/18 00:21 Attending physician: RENETTA OLIVEIRA MD Primary care physician: OLVIN WATKINS Hospitalization Condition: Stable Hospital course: 38F who pw sob, wheezing and cough Diagnosis COPD exacerbation acute hypoxic respiratory failure SIRS, no evidence of infection htn urgency DM type 2 with persistent hyperglycemia Plan She received steriods, nebs and RT rx, she was treated with oxygen, and then weaned off optimize meds for htn and DM Echocardiogram showed normal systolic and diastolic function Disposition: DC- TO HOME OR SELFCARE Time spent for discharge: 33 mins Core Measure Documentation - Palliative Care Palliative Care/ Comfort Measures: Not Applicable - Core Measures Any of the following diagnoses?: none Exam - Constitutional Vitals: Temp Pulse Resp BP Pulse Ox 97.3 F L 109 H 18 136/89 98 08/31/18 05:39 08/31/18 09:29 08/31/18 09:29 08/31/18 05:39 08/31/18 09:26 General appearance: Present: no acute distress, well-nourished - EENT Eyes: Present: PERRL ENT: hearing intact, clear oral mucosa - Neck Neck: Present: supple, normal ROM - Respiratory Respiratory effort: normal Respiratory: bilateral: CTA - Cardiovascular Heart Sounds: Present: S1 & S2. Absent: rub, click - Extremities Extremities: pulses symmetrical, No edema Peripheral Pulses: within normal limits - Abdominal General gastrointestinal: Present: soft, non-tender, non-distended, normal bowel sounds Female genitourinary: Present: normal - Integumentary Integumentary: Present: clear, warm, dry - Musculoskeletal Musculoskeletal: gait normal, strength equal bilaterally - Psychiatric Psychiatric: appropriate mood/affect, intact judgment & insight - Neurologic Neurologic: CNII-XII intact, moves all extremities Plan Follow up with: OLVIN WATKINS MD [Primary Care Provider] - 3-5 Days Prescriptions: Advair Diskus 250-50 mcg 2 puff IH BID #1 RX: ALBUTEROL Inhaler(NF) [VENTOLIN Inhaler(NF)] 1 puff IH Q4H #1 inha RX: ALBUTEROL NEB's [Proventil 0.083% NEBS] 2.5 mg IH TID PRN #120 neb PRN Reason: Wheezing RX: Insulin Glargine [Lantus VIAL] 15 units SUB-Q BID #1 vial RX: oxyCODONE /ACETAMINOPHEN [Percocet 5/325 mg] 1 tab PO Q6H PRN #10 tablet PRN Reason: Pain, Moderate (4-6) Prednisone [predniSONE 10 mg (6-Day Pack, 21 Tabs)] 10 mg PO .TAPER #1 tab.ds.pk RX: Tiotropium [Spiriva] 1 puff IH Q24HRT #30 cap Other Discharge Orders: Nebulizer (Amb) Location: None Selected
[2018-08-31] MEDS: MUCINEX ER PO SCH (12:18)
[2018-08-31] MEDS: ZITHROMAX 500 MG in NACL 0.9% 250ML 250 ML IV SCH (12:19)
[2018-08-31 13:19] VITALS: BP 127/71
== END 2018-08-31 14:15 | disposition home or self-care (01) | DRG 189 ==
LOC: ED 20:03 → 3A 08-29 00:21
PROVIDERS: ADMIT Internal Medicine; ATTEND Internal Medicine
PROC: 4A033R1 Measurement of Arterial Saturation, Peripheral, Percutaneous Approach (ICD-10-PCS; 2018-08-28)
PROC: 5A09357 Assistance with Respiratory Ventilation, Less than 24 Consecutive Hours, Continuous Positive Airway Pressure (ICD-10-PCS; principal; 2018-08-30)
PROC: 5A09357 Assistance with Respiratory Ventilation, Less than 24 Consecutive Hours, Continuous Positive Airway Pressure (ICD-10-PCS; 2018-08-31)
DX: J96.21 Acute and chronic respiratory failure with hypoxia (principal); J44.1 Chronic obstructive pulmonary disease with (acute) exacerbation; R65.10 Systemic inflammatory response syndrome (SIRS) of non-infectious origin without acute organ dysfunction; E11.65 Type 2 diabetes mellitus with hyperglycemia; I50.9 Heart failure, unspecified; I11.0 Hypertensive heart disease with heart failure; R07.89 Other chest pain; I16.0 Hypertensive urgency; J20.9 Acute bronchitis, unspecified; I25.10 Atherosclerotic heart disease of native coronary artery without angina pectoris; Z99.81 Dependence on supplemental oxygen; Z88.0 Allergy status to penicillin; Z88.2 Allergy status to sulfonamides; I25.2 Old myocardial infarction; Z90.49 Acquired absence of other specified parts of digestive tract; Z79.4 Long term (current) use of insulin
CPT/HCPCS: 36415; 71045; 80048; 80053; 82550; 82553; 82803; 82962; 83036; 83880; 84484; 84703; 85007; 85025; 85379; 93005; 93010; 93306; 94640; 94644; 94660; 94760; G0378; J0456; J1650; J1815; J1940; J2060; J2920; J2930; J7050

== ENCOUNTER 2018-09-26 15:33 | Emergency (ER) | payer MEDICARE ==
[2018-09-26 16:23] LABS: Basophils # (Auto) 0.1 K/mm3 (0.0-0.1); Basophils % (Auto) 1.5 % (0.0-1.8); Eosinophils # (Auto) 0.2 K/mm3 (0.0-0.4); Eosinophils % (Auto) 2.6 % (0.0-4.3); Hematocrit 32.8 % (30.3-42.9); Hemoglobin 10.6 gm/dl (10.1-14.3); Lymphocytes # (Auto) 2.2 K/mm3 (1.2-5.4); Lymphocytes % (Auto) 34.5 % (13.4-35.0); Mean Corpuscular HGB Conc 33 % (30-34); Mean Corpuscular Volume 84 fl (79-97); Monocytes # (Auto) 0.7 K/mm3 (0.0-0.8); Monocytes % (Auto) 11.7 % (0.0-7.3); Platelet Count 301 K/mm3 (140-440); Red Blood Count 3.92 M/mm3 (3.65-5.03); Red Cell Distribution Width 16.5 % (13.2-15.2)
[2018-09-26] MEDS ORDERED: MAGNESIUM SULFATE 2GM/50ML 2 GM/50 ML BAG IV ONE (16:33)
[2018-09-26] MEDS ORDERED: SOLU-Medrol IV ONE (16:33)
[2018-09-26] MEDS ORDERED: NACL 0.9% 500 ML 500 ML IV ONE (16:33)
[2018-09-26] MEDS ORDERED: PROVENTIL IH ONE (16:33)
[2018-09-26] MEDS ORDERED: ATROVENT IH ONE (16:33)
--- NOTE | 2018-09-26 16:34 | Emergency Department Report ---
ED General Adult HPI - General Chief complaint: Chest Pain Stated complaint: CHEST PAIN Time Seen by Provider: 09/26/18 16:14 Source: patient, EMS, RN notes reviewed, old records reviewed Mode of arrival: Stretcher Limitations: No Limitations - History of Present Illness Initial comments: This is a 38-year-old female. I have evaluated this patient in the past. Patient has a history of asthma, multiple hospitalizations, hypertension, appendectomy, , reported history of congestive heart failure (patient had echocardiogram in August. Ejection fraction of 55% to 60%, with normal RV systolic function, normal LV diastolic function), psychiatric disease, obesity, questionable coronary artery disease Primary care Dr.: Patient can't remember Cardiology: [facility], patient reports following up with them within the last month, and being presumptively diagnosed with costochondritis Pulmonology sleep specialist, Dr. Stephen in [place], patient reports that she had a sleep study yesterday. The patient is brought to the hospital by emergency medical services with a primary complaint of asthma, wheezing, shortness of breath. The symptoms have been going on for 1-2 days. They are constant, worse with physical exertion, decreased with rest, and decreased with nebulizer therapy. Patient was evaluated in August by myself for similar complaints. Patient also complains of chest pain. The chest pain essential and reportedly radiates to the bilateral arms and bilateral legs. Chest pain is present for "months." Patient also reports no vomiting, no diaphoresis, no oral contraceptive use, and denies DVT, pulmonary embolus risk factors, with the exception of a recent hospitalization. Of note, the patient had a negative CT angiogram of the chest in August. Patient also complains of feeling potentially sleepy. She reports that her outpatient sleep doctor is evaluating this. The patient also endorses no homicidality, no suicidality, but reports that her psychiatrist, who is in [place], has her on a new medication, latuda, and she reports that she believes that this is causing visual hallucinations. She denies lower abdominal pain, focal extremity weakness, numbness and urinary symptoms. -: Sudden Location: chest Radiation: extremity Severity scale (0 -10): 8 Quality: aching Consistency: intermittent Improves with: other Worsens with: other - Related Data Home Medications Medication Instructions Recorded Confirmed Last Taken Depakote 150 mg PO QHS 08/30/18 08/30/18 Unknown Furosemide [Lasix] 20 mg PO QDAY 08/30/18 08/30/18 Unknown Gabapentin [Neurontin] 300 mg PO BID 08/30/18 08/30/18 Unknown Humalog See Protocol SQ ACHS 08/30/18 08/30/18 Unknown Ibuprofen Ib 800 mg PO BID 08/30/18 08/30/18 Unknown Lipitor 20 mg PO QHS 08/30/18 08/30/18 Unknown Metformin ER (Nf) 500 mg PO BID 08/30/18 08/30/18 Unknown Metoprolol 25 mg PO BID 08/30/18 08/30/18 Unknown Montelukast [Singulair] 10 mg PO QHS 08/30/18 08/30/18 Unknown Multivitamin 1 tab PO DAILY 08/30/18 08/30/18 Unknown Seroquel 100 mg PO QHS 08/30/18 08/30/18 Unknown Valtrex 500 mg PO BID 08/30/18 08/30/18 Unknown Zantac 150 MG TAB 150 mg PO QHS 08/30/18 08/30/18 Unknown Zoloft 150 mg PO QDAY 08/30/18 08/30/18 Unknown hydrOXYzine 25 - 50 mg PO Q6HR PRN 08/30/18 08/30/18 Unknown traZODone 100 mg PO QHS 08/30/18 08/30/18 Unknown Previous Rx's Medication Instructions Recorded Last Taken Type Acetaminophen [Tylenol Arthritis] 650 mg PO Q6HR PRN #30 tablet.er 08/19/18 08/28/18 Rx Albuterol Sulfate [Proair 90 mcg IH Q4HR PRN #2 aer.pow.ba 08/19/18 08/28/18 Rx Respiclick] Ibuprofen [Motrin 600 MG tab] 600 mg PO Q8H PRN #30 tablet 08/19/18 08/28/18 Rx Ipratropium Lee [Atrovent Hfa] 12.9 gm IH Q4HR #1 hfa.aer.ad 08/19/18 08/28/18 Rx ALBUTEROL Inhaler(NF) [VENTOLIN 1 puff IH Q4H #1 inha 08/31/18 Unknown Rx Inhaler(NF)] ALBUTEROL NEB's [Proventil 0.083% 2.5 mg IH TID PRN #120 neb 08/31/18 Unknown Rx NEBS] Advair Diskus 250-50 mcg 2 puff IH BID #1 08/31/18 Unknown Rx Insulin Glargine [Lantus VIAL] 15 units SUB-Q BID #1 vial 08/31/18 Unknown Rx Prednisone [predniSONE 10 mg 10 mg PO .TAPER #1 tab.ds.pk 08/31/18 Unknown Rx (6-Day Pack, 21 Tabs)] Tiotropium [Spiriva] 1 puff IH Q24HRT #30 cap 08/31/18 Unknown Rx oxyCODONE /ACETAMINOPHEN [Percocet 1 tab PO Q6H PRN #10 tablet 08/31/18 Unknown Rx 5/325 mg] Acetaminophen [Tylenol Arthritis] 650 mg PO Q6HR PRN #30 tablet.er 09/27/18 Unknown Rx Albuterol Sulfate [Albuterol 0.63% 0.63 mg IH Q4HR PRN #2 ml 09/27/18 Unknown Rx NEBS] Albuterol Sulfate [Proair 90 mcg IH Q4HR PRN #2 aer.pow.ba 09/27/18 Unknown Rx Respiclick] predniSONE [Deltasone] 40 mg PO QDAY #8 tab 09/27/18 Unknown Rx Allergies Allergy/AdvReac Type Severity Reaction Status Date / Time Penicillins Allergy Anaphylaxis Verified 08/18/18 23:30 Sulfa (Sulfonamide AdvReac Anaphylaxis Verified 08/18/18 23:30 Antibiotics) ED Review of Systems ROS: Stated complaint: CHEST PAIN Other details as noted in HPI Constitutional: malaise, weakness. denies: fever ENT: congestion Respiratory: cough, shortness of breath, wheezing Cardiovascular: chest pain Gastrointestinal: denies: abdominal pain, nausea Musculoskeletal: denies: as per HPI, arthralgia, myalgia Skin: denies: lesions Neurological: weakness Psychiatric: anxiety, visual hallucinations. denies: depression, auditory hallucinations, homicidal thoughts, suicidal thoughts ED Past Medical Hx - Past Medical History Previous Medical History?: Yes Hx Hypertension: Yes Hx Heart Attack/AMI: Yes (2 ATTACKS,NO STENTS) Hx Congestive Heart Failure: Yes Hx Diabetes: Yes Hx Asthma: Yes Hx COPD: Yes Additional medical history: high cholestrol - Surgical History Past Surgical History?: Yes Hx Appendectomy: Yes Additional Surgical History: C-Sectionx2. d&c - Social History Smoking Status: Never Smoker Substance Use Type: None - Medications Home Medications: Home Medications Medication Instructions Recorded Confirmed Last Taken Type Acetaminophen [Tylenol Arthritis] 650 mg PO Q6HR PRN #30 tablet.er 08/19/18 08/29/18 08/28/18 Rx Albuterol Sulfate [Proair 90 mcg IH Q4HR PRN #2 aer.pow.ba 08/19/18 08/29/18 08/28/18 Rx Respiclick] Ibuprofen [Motrin 600 MG tab] 600 mg PO Q8H PRN #30 tablet 08/19/18 08/29/18 08/28/18 Rx Ipratropium Lee [Atrovent Hfa] 12.9 gm IH Q4HR #1 hfa.aer.ad 08/19/18 08/29/18 08/28/18 Rx Depakote 150 mg PO QHS 08/30/18 08/30/18 Unknown History Furosemide [Lasix] 20 mg PO QDAY 08/30/18 08/30/18 Unknown History Gabapentin [Neurontin] 300 mg PO BID 08/30/18 08/30/18 Unknown History Humalog See Protocol SQ ACHS 08/30/18 08/30/18 Unknown History Ibuprofen Ib 800 mg PO BID 08/30/18 08/30/18 Unknown History Lipitor 20 mg PO QHS 08/30/18 08/30/18 Unknown History Metformin ER (Nf) 500 mg PO BID 08/30/18 08/30/18 Unknown History Metoprolol 25 mg PO BID 08/30/18 08/30/18 Unknown History Montelukast [Singulair] 10 mg PO QHS 08/30/18 08/30/18 Unknown History Multivitamin 1 tab PO DAILY 08/30/18 08/30/18 Unknown History Seroquel 100 mg PO QHS 08/30/18 08/30/18 Unknown History Valtrex 500 mg PO BID 08/30/18 08/30/18 Unknown History Zantac 150 MG TAB 150 mg PO QHS 08/30/18 08/30/18 Unknown History Zoloft 150 mg PO QDAY 08/30/18 08/30/18 Unknown History hydrOXYzine 25 - 50 mg PO Q6HR PRN 08/30/18 08/30/18 Unknown History traZODone 100 mg PO QHS 08/30/18 08/30/18 Unknown History ALBUTEROL Inhaler(NF) [VENTOLIN 1 puff IH Q4H #1 inha 08/31/18 Unknown Rx Inhaler(NF)] ALBUTEROL NEB's [Proventil 0.083% 2.5 mg IH TID PRN #120 neb 08/31/18 Unknown R x NEBS] Advair Diskus 250-50 mcg 2 puff IH BID #1 08/31/18 Unknown Rx Insulin Glargine [Lantus VIAL] 15 units SUB-Q BID #1 vial 08/31/18 Unknown Rx Prednisone [predniSONE 10 mg 10 mg PO .TAPER #1 tab.ds.pk 08/31/18 Unknown Rx (6-Day Pack, 21 Tabs)] Tiotropium [Spiriva] 1 puff IH Q24HRT #30 cap 08/31/18 Unknown Rx oxyCODONE /ACETAMINOPHEN [Percocet 1 tab PO Q6H PRN #10 tablet 08/31/18 Unknown Rx 5/325 mg] Acetaminophen [Tylenol Arthritis] 650 mg PO Q6HR PRN #30 tablet.er 09/27/18 Unknown Rx Albuterol Sulfate [Albuterol 0.63% 0.63 mg IH Q4HR PRN #2 ml 09/27/18 Unknown Rx NEBS] Albuterol Sulfate [Proair 90 mcg IH Q4HR PRN #2 aer.pow.ba 09/27/18 Unknown Rx Respiclick] predniSONE [Deltasone] 40 mg PO QDAY #8 tab 09/27/18 Unknown Rx ED Physical Exam - General Limitations: No Limitations, Other (patient is sleepy but arousable.) General appearance: alert, obese - Head Head exam: Present: atraumatic, normocephalic - Eye Eye exam: Present: normal appearance, PERRL, EOMI, other (visual acuity intact to finger counting, color perception, reading at a close distance). Absent: nystagmus - ENT ENT exam: Present: normal exam, normal orophraynx, mucous membranes moist, normal external ear exam - Neck Neck exam: Present: normal inspection, full ROM. Absent: tenderness, meningismus - Respiratory Respiratory exam: Present: wheezes, rhonchi. Absent: respiratory distress - Cardiovascular Cardiovascular Exam: Present: normal rhythm, tachycardia, normal heart sounds. Absent: systolic murmur, diastolic murmur, rubs, gallop - GI/Abdominal GI/Abdominal exam: Present: soft. Absent: distended, tenderness, guarding, rebound, rigid, pulsatile mass - Extremities Exam Extremities exam: Present: normal inspection, full ROM, other (2+ pulses noted in the bilateral upper, lower extremities. Compartments soft. No long bony tenderness. The pelvis is stable.). Absent: pedal edema, joint swelling, calf tenderness - Back Exam Back exam: Present: normal inspection, full ROM. Absent: tenderness, CVA tenderness (R), paraspinal tenderness, vertebral tenderness - Neurological Exam Neurological exam: Present: alert, oriented X3, CN II-XII intact, other (Ext raocular movements intact. Tongue midline. No facial droop. Facial sensation intact to light touch in the V1, V2, V3 distribution bilaterally. 5 and 5 strength in 4 extremities.. Sensation is intact to light touch in 4 extremities.). Absent: motor sensory deficit - Psychiatric Psychiatric exam: Present: flat affect. Absent: homicidal ideation, suicidal ideation - Skin Skin exam: Present: warm, dry, intact, normal color. Absent: rash ED Course Vital Signs 09/26/18 09/26/18 09/26/18 15:43 15:52 16:01 Temperature 98.2 F Pulse Rate 107 H 90 104 H Respiratory 20 19 22 Rate Blood Pressure 115/75 104/59 O2 Sat by Pulse 94 96 93 Oximetry 09/26/18 09/26/18 09/26/18 16:15 16:31 16:45 Temperature Pulse Rate 101 H 106 H 101 H Respiratory 15 21 18 Rate Blood Pressure O2 Sat by Pulse 93 100 94 Oximetry 09/26/18 09/26/18 09/26/18 17:01 17:15 17:31 Temperature Pulse Rate 95 H 92 H 97 H Respiratory 17 16 17 Rate Blood Pressure 121/58 121/58 121/58 O2 Sat by Pulse 92 100 94 Oximetry 09/26/18 09/26/18 09/26/18 17:45 18:00 18:15 Temperature Pulse Rate 109 H 94 H 99 H Respiratory 14 15 18 Rate Blood Pressure 121/58 104/64 104/64 O2 Sat by Pulse 93 97 92 Oximetry 09/26/18 09/26/18 09/26/18 18:31 18:45 19:01 Temperature Pulse Rate 99 H 100 H 101 H Respiratory 17 16 14 Rate Blood Pressure 104/64 104/64 103/60 O2 Sat by Pulse 100 99 97 Oximetry 09/26/18 09/26/18 09/26/18 19:45 20:01 20:15 Temperature Pulse Rate 106 H 107 H 107 H Respiratory 11 L 14 15 Rate Blood Pressure O2 Sat by Pulse 93 Oximetry 09/26/18 09/26/18 09/26/18 20:31 20:45 22:26 Temperature Pulse Rate 113 H 106 H Respiratory 13 15 Rate Blood Pressure O2 Sat by Pulse 95 Oximetry - Reevaluation(s) Reevaluation #1: 09/26/18 20:09 Differential diagnosis, including but not limited to: Asthma exacerbation, pneumonia, costochondritis, acute coronary syndrome, pulmonary embolus, obstructive sleep apnea, pulmonary hypertension, obesity hypoventilation syndrome, medication side effect Assessment and plan: 38-year-old female with a primary complaint of wheezing, cough, shortness of breath, secondary complaints of chest pain, and visual marifer lucinations. Complaint #1, shortness of breath and wheezing. Patient has known history of asthma. We will treat her with albuterol, Atrovent, steroids and magnesium. Patient is sleepy but arousable, most likely has sleep apnea, she reports an outpatient sleep study yesterday. Once she has completed her nebulizer therapy, we will give her a trial of ambulation on room air. Complaint #2, chest pain. Patient had a negative CT scan of the chest last month. She has reported to me that she has followed up with her outpatient respiratory therapist assistant for her chronic chest pain. I find the patient to be low risk by well's criteria, low risk by the DARRYL score, and low risk by heart score. She had an elevated d-dimer, thus the need for CT scan of the chest, especially given obesity, poor ambulatory status, and recent hospitalization last month. Troponin negative 1, EKG appears to be unchanged from prior, patient in my opinion at low risk for major adverse cardiac event. She also reports that her chest pain is chronic. Assuming 2 negative troponins, unchanged EKG 2, patient medically suitable to follow-up with an outpatient respiratory therapist assistant. Complaint #3, nonspecific visual hallucinations, after being on a new psychiatric medication, latuda The patient is alert and oriented 3, clinically sober, not homicidal or suicidal, does not meet 1013 criteria at this time. I have counseled the ryan tamica to follow up with her outpatient psychiatrist to have her medications reevaluated. She does not require emergent psychiatric consultation, evaluation at this time. GCS of 15, clinically sober, we will obtain noncontrast CT scan of the brain to evaluate for structural intracranial lesions. 09/26/18 20:14 Reevaluation #2: 09/26/18 20:29 Repeat EKG appears to be unremarkable, unchanged when compared to prior. Reevaluation #3: 09/27/18 00:20 Troponin negative 3. Breath sounds improved. Able to ambulate without significant desaturation. Repeat EKG unchanged from prior. Patient sleeping comfortably in stretcher. Patient is medically suitable to be discharged with instructions to follow up. She will need to follow up with her outpatient respiratory therapist assistant, psychiatrist, pulmonary physician, sleep specialist. - EJ/Peripheral Line Arm R Time Out Performed: Yes Indications: nurses unable to establis Skin Cleansed in Sterile Fashion: Yes Size: 20 Dressing Placed: Tegaderm Patient Tolerated Procedure: well ED Medical Decision Making - Lab Data Result diagrams: 09/26/18 16:09 09/26/18 16:09 Vital Signs 09/26/18 15:43 Temperature 98.2 F Pulse Rate 107 H Respiratory 20 Rate Blood Pressure 115/75 O2 Sat by Pulse 94 Oximetry Lab Results 09/26/18 09/26/18 09/26/18 Range/Units 16:09 16:09 16:09 WBC 6.3 (4.5-11.0) K/mm3 RBC 3.92 (3.65-5.03) M/mm3 Hgb 10.6 (10.1-14.3) gm/dl Hct 32.8 (30.3-42.9) % MCV 84 (79-97) fl MCH 27 L (28-32) pg MCHC 33 (30-34) % RDW 16.5 H (13.2-15.2) % Plt Count 301 (140-440) K/mm3 Lymph % (Auto) 34.5 (13.4-35.0) % [place] % (Auto) 11.7 H (0.0-7.3) % Eos % (Auto) 2.6 (0.0-4.3) % Baso % (Auto) 1.5 (0.0-1.8) % Lymph # 2.2 (1.2-5.4) K/mm3 [place] # 0.7 (0.0-0.8) K/mm3 Eos # 0.2 (0.0-0.4) K/mm3 Baso # 0.1 (0.0-0.1) K/mm3 Seg Neutrophils % 49.7 (40.0-70.0) % Seg Neutrophils # 3.1 (1.8-7.7) K/mm3 PT (12.2-14.9) Sec. INR (0.87-1.13) D-Dimer (0-234) ng/mlDDU Sodium 140 (137-145) mmol/L Potassium 4.0 (3.6-5.0) mmol/L Chloride 101.7 (98-107) mmol/L Carbon Dioxide 27 (22-30) mmol/L Anion Gap 15 mmol/L BUN 13 (7-17) mg/dL Creatinine 0.6 L (0.7-1.2) mg/dL Estimated GFR > 60 ml/min BUN/Creatinine Ratio 22 % Glucose 199 H (65-100) mg/dL Calcium 8.8 (8.4-10.2) mg/dL Magnesium (1.7-2.3) mg/dL Total Creatine Kinase (30-135) units/L Troponin T < 0.010 (0.00-0.029) ng/mL TSH (0.270-4.200) mlU/mL HCG, Qual Negative (Negative) Salicylates (2.8-20.0) mg/dL Acetaminophen (10.0-30.0) ug/mL 09/26/18 09/26/18 09/26/18 Range/Units 16:40 16:40 16:40 WBC (4.5-11.0) K/mm3 RBC (3.65-5.03) M/mm3 Hgb (10.1-14.3) gm/dl Hct (30.3-42.9) % MCV (79-97) fl MCH (28-32) pg MCHC (30-34) % RDW (13.2-15.2) % Plt Count (140-440) K/mm3 Lymph % (Auto) (13.4-35.0) % [place] % (Auto) (0.0-7.3) % Eos % (Auto) (0.0-4.3) % Baso % (Auto) (0.0-1.8) % Lymph # (1.2-5.4) K/mm3 [place] # (0.0-0.8) K/mm3 Eos # (0.0-0.4) K/mm3 Baso # (0.0-0.1) K/mm3 Seg Neutrophils % (40.0-70.0) % Seg Neutrophils # (1.8-7.7) K/mm3 PT 12.4 (12.2-14.9) Sec. INR 0.87 (0.87-1.13) D-Dimer 309.59 H (0-234) ng/mlDDU Sodium (137-145) mmol/L Potassium (3.6-5.0) mmol/L Chloride (98-107) mmol/L Carbon Dioxide (22-30) mmol/L Anion Gap mmol/L BUN (7-17) mg/dL Creatinine (0.7-1.2) mg/dL Estimated GFR ml/min BUN/Creatinine Ratio % Glucose (65-100) mg/dL Calcium (8.4-10.2) mg/dL Magnesium 1.70 (1.7-2.3) mg/dL Total Creatine Kinase 191 H (30-135) units/L Troponin T (0.00-0.029) ng/mL TSH 0.415 (0.270-4.200) mlU/mL HCG, Qual (Negative) Salicylates (2.8-20.0) mg/dL Acetaminophen (10.0-30.0) ug/mL 09/26/18 09/26/18 Range/Units 16:40 16:40 WBC (4.5-11.0) K/mm3 RBC (3.65-5.03) M/mm3 Hgb (10.1-14.3) gm/dl Hct (30.3-42.9) % MCV (79-97) fl MCH (28-32) pg MCHC (30-34) % RDW (13.2-15.2) % Plt Count (140-440) K/mm3 Lymph % (Auto) (13.4-35.0) % [place] % (Auto) (0.0-7.3) % Eos % (Auto) (0.0-4.3) % Baso % (Auto) (0.0-1.8) % Lymph # (1.2-5.4) K/mm3 [place] # (0.0-0.8) K/mm3 Eos # (0.0-0.4) K/mm3 Baso # (0.0-0.1) K/mm3 Seg Neutrophils % (40.0-70.0) % Seg Neutrophils # (1.8-7.7) K/mm3 PT (12.2-14.9) Sec. INR (0.87-1.13) D-Dimer (0-234) ng/mlDDU Sodium (137-145) mmol/L Potassium (3.6-5.0) mmol/L Chloride (98-107) mmol/L Carbon Dioxide (22-30) mmol/L Anion Gap mmol/L BUN (7-17) mg/dL Creatinine (0.7-1.2) mg/dL Estimated GFR ml/min BUN/Creatinine Ratio % Glucose (65-100) mg/dL Calcium (8.4-10.2) mg/dL Magnesium (1.7-2.3) mg/dL Total Creatine Kinase (30-135) units/L Troponin T (0.00-0.029) ng/mL TSH (0.270-4.200) mlU/mL HCG, Qual (Negative) Salicylates < 0.3 L (2.8-20.0) mg/dL Acetaminophen < 5.0 L (10.0-30.0) ug/mL - EKG Data -: EKG Interpreted by Tn EKG shows normal: sinus rhythm Rate: tachycardia - EKG Data 09/26/18 20:13 Sinus tachycardia, 104 bpm, QTC prolonged, poor R progression, low voltage, ab normal EKG, not consistent with ST elevation myocardial infarction, appears unchanged from prior EKG from 08/28/2018. - Radiology Data Radiology results: report reviewed, image reviewed X-ray the chest is negative for acute disease. Noncontrast CT scan of the brain: CT scan of the chest: Critical care attestation.: If time is entered above; I have spent that time in minutes in the direct care of this critically ill patient, excluding procedure time. ED Disposition Clinical Impression: COPD with exacerbation, Chest pain, History of hallucinations, Sleep disturbance Disposition: DC-01 TO HOME OR SELFCARE Is pt being admited?: No Does the pt Need Aspirin: No Condition: Stable Instructions: Chest Pain (ED), Chronic Obstructive Pulmonary Disease (ED) Additional Instructions: Take the breathing medications, pain medications as needed/directed. Follow-up with her outpatient respiratory therapist assistant within the next 3-5 days. Complaint of chest pain. Follow-up with your pulmonary, sleep doctor within the next 5-7 days for your complaint of sick derangement, cough, wheezing, shortness of breath. Follow-up with your psychiatrist here complaint of hallucinations after starting a new medication, latuda, within the next 7-10 days. Please return to the emergency room right away with it, worsened or different symptoms. Please do not take metformin for the next 48 hours. Referrals: PRIMARY CAREMD [Primary Care Provider] - 3-5 Days [facility] [Provider Group] - 3-5 Days
[2018-09-26] MEDS ORDERED: TORADOL IV ONE (16:45)
[2018-09-26 16:48] LABS: BUN/Creatinine Ratio 22; Blood Urea Nitrogen 13 mg/dL (7-17); Calcium 8.8 mg/dL (8.4-10.2); Hemolysis Index 35
[2018-09-26 17:23] LABS: INR 0.87 (0.87-1.13)
--- NOTE | 2018-09-26 19:49 | XRay Report ---
PROCEDURES: XR CHEST 1V AP TECHNIQUE: AP portable view of the chest. HISTORY: Chest Pain COMPARISON: CXR 08/30/2018 FINDINGS: Lines, tubes, and devices: N/A Lungs and pleura: Trachea is normal in position. Lungs are clear of infiltrate, pleural effusion, vas cular congestion, or pneumothorax. No change. Cardiomediastinal silhouette: Cardiac and mediastinal silhouettes are unremarkable. Other: Bony structures are intact. IMPRESSION: No acute cardiopulmonary process seen.No change. This document is electronically signed by Ofelia Laughlin MD., September 26 2018 07:47:55 PM ET
--- NOTE | 2018-09-26 21:29 | Cat Scan Report ---
PROCEDURE: CT ANGIO CHEST TECHNIQUE: Computerized tomographic angiography of the chest was performed after the IV injection of iodinated nonionic contrast including image processing. The image data was postprocessed using 2-di mensional multiplanar reformatted (MPR) and 3-dimensional (MIP and/or volume rendered) techniques. Au tomated exposure control, adjustment of mA and/or kV according to patient size, or iterative reconstr uction dose optimization techniques were utilized. CT DOSE LENGTH PRODUCT: 610.7 mGycm HISTORY: cp dyspnea wheezinfg COMPARISONS: None . FINDINGS: Bilateral pulmonary arteries and their branches demonstrate normal opacification without filling defe cts. Aorta is of normal caliber. Hilar structures are within normal limits. There is no lymphadenopat hy. Visualized thyroid demonstrates normal size and density. Cardiac size is upper limit of normal. V isualized upper abdominal structures are within normal limits. Vertebral height is normal. A small ca lcified granuloma is noted in the right lower lobe. Bilateral lungs are otherwise free of infiltrates or mass lesions. Pleural spaces are clear. IMPRESSION: No acute pulmonary process. Cardiac size is upper limit of normal. This document is electronically signed by Heath Hair MD., September 26 2018 09:27:46 PM ET
[2018-09-26 22:21] VITALS: BP 103/60
--- NOTE | 2018-09-27 00:54 | Cat Scan Report ---
PROCEDURE: CT HEAD/BRAIN WO CON TECHNIQUE: Routine axial imaging was obtained of the brain without IV contrast. HISTORY: viasual hallucinations COMPARISONS: None FINDINGS: There is no evidence of acute stroke or hemorrhage. The ventricular system is appropriate in size and is symmetric. The basal cisterns appear normal. The visualized sinuses are clear. The calvarium appe ars intact. IMPRESSION: No acute intracranial process.. This document is electronically signed by Edilberto Brennan MD., September 27 2018 12:52:00 AM ET
== END 2018-09-27 01:28 | disposition home or self-care (01) ==
LOC: ED 15:33
DX: J44.1 Chronic obstructive pulmonary disease with (acute) exacerbation (principal); R44.1 Visual hallucinations; G47.9 Sleep disorder, unspecified; R53.1 Weakness
CPT/HCPCS: 36415; 36556; 70450; 71045; 71275; 80048; 80164; 82550; 83735; 84443; 84484; 84703; 85025; 85379; 85610; 93005; 93010; 94640; 96365; 96366; 96375; 99285; G0480; J1885; J2930; J3475; J7040; Q9967; 80320

== ENCOUNTER 2018-11-29 14:36 | Emergency (ER) | payer MEDICARE ==
[2018-11-29 14:59] VITALS: BP 113/61
--- NOTE | 2018-11-29 15:49 | Emergency Department Report ---
ED General Adult HPI - General Chief complaint: Chest Pain Stated complaint: CHEST PAIN Time Seen by Provider: 11/29/18 15:30 Source: patient, EMS Mode of arrival: Stretcher Limitations: No Limitations - History of Present Illness Initial comments: The patient presented to the emergency Department with a chief complaint of chest pain. The patient is very vague on the start of her chest pain and was located. -: unknown Location: chest Radiation: non-radiation Quality: aching Improves with: none Worsens with: none Associated Symptoms: denies other symptoms Treatments Prior to Arrival: none - Related Data Home Medications Medication Instructions Recorded Confirmed Last Taken Depakote 150 mg PO QHS 08/30/18 08/30/18 Unknown Furosemide [Lasix] 20 mg PO QDAY 08/30/18 08/30/18 Unknown Gabapentin [Neurontin] 300 mg PO BID 08/30/18 08/30/18 Unknown Humalog See Protocol SQ ACHS 08/30/18 08/30/18 Unknown Ibuprofen Ib 800 mg PO BID 08/30/18 08/30/18 Unknown Lipitor 20 mg PO QHS 08/30/18 08/30/18 Unknown Metformin ER (Nf) 500 mg PO BID 08/30/18 08/30/18 Unknown Metoprolol 25 mg PO BID 08/30/18 08/30/18 Unknown Montelukast [Singulair] 10 mg PO QHS 08/30/18 08/30/18 Unknown Multivitamin 1 tab PO DAILY 08/30/18 08/30/18 Unknown Seroquel 100 mg PO QHS 08/30/18 08/30/18 Unknown Valtrex 500 mg PO BID 08/30/18 08/30/18 Unknown Zantac 150 MG TAB 150 mg PO QHS 08/30/18 08/30/18 Unknown Zoloft 150 mg PO QDAY 08/30/18 08/30/18 Unknown hydrOXYzine 25 - 50 mg PO Q6HR PRN 08/30/18 08/30/18 Unknown traZODone 100 mg PO QHS 08/30/18 08/30/18 Unknown Previous Rx's Medication Instructions Recorded Last Taken Type Acetaminophen [Tylenol Arthritis] 650 mg PO Q6HR PRN #30 tablet.er 08/19/18 08/28/18 Rx Albuterol Sulfate [Proair 90 mcg IH Q4HR PRN #2 aer.pow.ba 08/19/18 08/28/18 Rx Respiclick] Ibuprofen [Motrin 600 MG tab] 600 mg PO Q8H PRN #30 tablet 08/19/18 08/28/18 Rx Ipratropium [place] [Atrovent Hfa] 12.9 gm IH Q4HR #1 hfa.aer.ad 08/19/18 08/28/18 Rx ALBUTEROL Inhaler(NF) [VENTOLIN 1 puff IH Q4H #1 inha 08/31/18 Unknown Rx Inhaler(NF)] ALBUTEROL NEB's [Proventil 0.083% 2.5 mg IH TID PRN #120 neb 08/31/18 Unknown Rx NEBS] Advair Diskus 250-50 mcg 2 puff IH BID #1 08/31/18 Unknown Rx Insulin Glargine [Lantus VIAL] 15 units SUB-Q BID #1 vial 08/31/18 Unknown Rx Prednisone [predniSONE 10 mg 10 mg PO .TAPER #1 tab.ds.pk 08/31/18 Unknown Rx (6-Day Pack, 21 Tabs)] Tiotropium [Spiriva] 1 puff IH Q24HRT #30 cap 08/31/18 Unknown Rx oxyCODONE /ACETAMINOPHEN [Percocet 1 tab PO Q6H PRN #10 tablet 08/31/18 Unknown Rx 5/325 mg] Acetaminophen [Tylenol Arthritis] 650 mg PO Q6HR PRN #30 tablet.er 09/27/18 Unknown Rx Albuterol Sulfate [Albuterol 0.63% 0.63 mg IH Q4HR PRN #2 ml 09/27/18 Unknown Rx NEBS] Albuterol Sulfate [Proair 90 mcg IH Q4HR PRN #2 aer.pow.ba 09/27/18 Unknown Rx Respiclick] predniSONE [Deltasone] 40 mg PO QDAY #8 tab 09/27/18 Unknown Rx Allergies Allergy/AdvReac Type Severity Reaction Status Date / Time Penicillins Allergy Anaphylaxis Verified 08/18/18 23:30 Sulfa (Sulfonamide AdvReac Anaphylaxis Verified 08/18/18 23:30 Antibiotics) ED Review of Systems ROS: Stated complaint: CHEST PAIN Other details as noted in HPI Constitutional: denies: chills, fever Eyes: denies: eye pain, eye discharge, vision change ENT: denies: ear pain, throat pain Respiratory: denies: cough, shortness of breath, wheezing Cardiovascular: denies: chest pain, palpitations Endocrine: no symptoms reported Gastrointestinal: denies: abdominal pain, nausea, diarrhea Genitourinary: denies: urgency, dysuria, discharge Musculoskeletal: denies: back pain, joint swelling, arthralgia Skin: denies: rash, lesions Neurological: denies: headache, weakness, paresthesias Psychiatric: denies: anxiety, depression Hematological/Lymphatic: denies: easy bleeding, easy bruising ED Past Medical Hx - Past Medical History Hx Hypertension: Yes Hx Heart Attack/AMI: Yes (2 ATTACKS,NO STENTS) Hx Congestive Heart Failure: Yes Hx Diabetes: Yes Hx Asthma: Yes Hx COPD: Yes Additional medical history: high cholestrol - Surgical History Hx Appendectomy: Yes Additional Surgical History: C-Sectionx2. d&c - Social History Smoking Status: Never Smoker Substance Use Type: None - Medications Home Medications: Home Medications Medication Instructions Recorded Confirmed Last Taken Type Acetaminophen [Tylenol Arthritis] 650 mg PO Q6HR PRN #30 tablet.er 08/19/18 08/29/18 08/28/18 Rx Albuterol Sulfate [Proair 90 mcg IH Q4HR PRN #2 aer.pow.ba 08/19/18 08/29/18 08/28/18 Rx Respiclick] Ibuprofen [Motrin 600 MG tab] 600 mg PO Q8H PRN #30 tablet 08/19/18 08/29/18 08/28/18 Rx Ipratropium [place] [Atrovent Hfa] 12.9 gm IH Q4HR #1 hfa.aer.ad 08/19/18 08/29/18 08/28/18 Rx Depakote 150 mg PO QHS 08/30/18 08/30/18 Unknown History Furosemide [Lasix] 20 mg PO QDAY 08/30/18 08/30/18 Unknown History Gabapentin [Neurontin] 300 mg PO BID 08/30/18 08/30/18 Unknown History Humalog See Protocol SQ ACHS 08/30/18 08/30/18 Unknown History Ibuprofen Ib 800 mg PO BID 08/30/18 08/30/18 Unknown History Lipitor 20 mg PO QHS 08/30/18 08/30/18 Unknown History Metformin ER (Nf) 500 mg PO BID 08/30/18 08/30/18 Unknown History Metoprolol 25 mg PO BID 08/30/18 08/30/18 Unknown History Montelukast [Singulair] 10 mg PO QHS 08/30/18 08/30/18 Unknown History Multivitamin 1 tab PO DAILY 08/30/18 08/30/18 Unknown History Seroquel 100 mg PO QHS 08/30/18 08/30/18 Unknown History Valtrex 500 mg PO BID 08/30/18 08/30/18 Unknown History Zantac 150 MG TAB 150 mg PO QHS 08/30/18 08/30/18 Unknown History Zoloft 150 mg PO QDAY 08/30/18 08/30/18 Unknown History hydrOXYzine 25 - 50 mg PO Q6HR PRN 08/30/18 08/30/18 Unknown History traZODone 100 mg PO QHS 08/30/18 08/30/18 Unknown History ALBUTEROL Inhaler(NF) [VENTOLIN 1 puff IH Q4H #1 inha 08/31/18 Unknown Rx Inhaler(NF)] ALBUTEROL NEB's [Proventil 0.083% 2.5 mg IH TID PRN #120 neb 08/31/18 Unknown Rx NEBS] Advair Diskus 250-50 mcg 2 puff IH BID #1 08/31/18 Unknown Rx Insulin Glargine [Lantus VIAL] 15 units SUB-Q BID #1 vial 08/31/18 Unknown Rx Prednisone [predniSONE 10 mg 10 mg PO .TAPER #1 tab.ds.pk 08/31/18 Unknown Rx (6-Day Pack, 21 Tabs)] Tiotropium [Spiriva] 1 puff IH Q24HRT #30 cap 08/31/18 Unknown Rx oxyCODONE /ACETAMINOPHEN [Percocet 1 tab PO Q6H PRN #10 tablet 08/31/18 Unknown Rx 5/325 mg] Acetaminophen [Tylenol Arthritis] 650 mg PO Q6HR PRN #30 tablet.er 09/27/18 Unknown Rx Albuterol Sulfate [Albuterol 0.63% 0.63 mg IH Q4HR PRN #2 ml 09/27/18 Unknown Rx NEBS] Albuterol Sulfate [Proair 90 mcg IH Q4HR PRN #2 aer.pow.ba 09/27/18 Unknown Rx Respiclick] predniSONE [Deltasone] 40 mg PO QDAY #8 tab 09/27/18 Unknown Rx ED Physical Exam - General Limitations: No Limitations General appearance: alert, in no apparent distress - Head Head exam: Present: atraumatic, normocephalic - Eye Eye exam: Present: normal appearance, PERRL - ENT ENT exam: Present: mucous membranes moist - Neck Neck exam: Present: normal inspection - Respiratory Respiratory exam: Present: normal lung sounds bilaterally. Absent: respiratory distress, wheezes - Cardiovascular Cardiovascular Exam: Present: regular rate, normal rhythm. Absent: systolic murmur, diastolic murmur, rubs, gallop - GI/Abdominal GI/Abdominal exam: Present: soft, normal bowel sounds. Absent: distended, tenderness - Extremities Exam Extremities exam: Present: normal inspection - Back Exam Back exam: Present: normal inspection - Neurological Exam Neurological exam: Present: alert, oriented X3, CN II-XII intact. Absent: motor sensory deficit (nylon the early to quit) - Psychiatric Psychiatric exam: Present: normal affect, normal mood - Skin Skin exam: Present: warm, dry, intact, normal color. Absent: rash ED Course Vital Signs 11/29/18 14:56 Temperature 98.8 F Pulse Rate 98 H Respiratory 17 Rate Blood Pressure 113/61 [Left] O2 Sat by Pulse 94 Oximetry ED Medical Decision Making - Medical Decision Making The patient eloped before the workup could be started Critical care attestation.: If time is entered above; I have spent that time in minutes in the direct care of this critically ill patient, excluding procedure time. ED Disposition Clinical Impression: Chest pain Disposition: Z-07 ELOPED Is pt being admited?: No Does the pt Need Aspirin: No Condition: Stable Instructions: Chest Pain (ED) Referrals: PRIMARY CARE, [Primary Care Provider] - 3-5 Days
== END 2018-11-29 16:00 | disposition left against medical advice (07) ==
LOC: ED 14:36
DX: R07.9 Chest pain, unspecified (principal); I11.0 Hypertensive heart disease with heart failure; I50.9 Heart failure, unspecified; I25.2 Old myocardial infarction; E11.9 Type 2 diabetes mellitus without complications; J44.9 Chronic obstructive pulmonary disease, unspecified; E78.00 Pure hypercholesterolemia, unspecified
CPT/HCPCS: 99282

== ENCOUNTER 2018-12-03 11:41 | Emergency (ER) | payer MEDICARE ==
[2018-12-03 11:50] VITALS: BP 104/77
--- NOTE | 2018-12-03 11:51 | Emergency Department Report ---
Blank Doc - Documentation Documentation: 38 y o female with a PMH of DM on medication metformin 500 mg BID and humalog and navamir, stating she feels like her BG is high she admits feeling dehydrated labs ACC evaluate
[2018-12-03 12:06] LABS: Basophils # (Auto) 0.1 K/mm3 (0.0-0.1); Basophils % (Auto) 0.6 % (0.0-1.8); Eosinophils # (Auto) 0.2 K/mm3 (0.0-0.4); Eosinophils % (Auto) 2.2 % (0.0-4.3); Hematocrit 32.7 % (30.3-42.9); Hemoglobin 10.7 gm/dl (10.1-14.3); Lymphocytes # (Auto) 2.9 K/mm3 (1.2-5.4); Lymphocytes % (Auto) 34.1 % (13.4-35.0); Mean Corpuscular HGB Conc 33 % (30-34); Mean Corpuscular Volume 83 fl (79-97); Monocytes # (Auto) 0.7 K/mm3 (0.0-0.8); Platelet Count 343 K/mm3 (140-440); Red Blood Count 3.97 M/mm3 (3.65-5.03); Red Cell Distribution Width 15.3 % (13.2-15.2)
--- NOTE | 2018-12-03 12:12 | Emergency Department Report ---
ED General Adult HPI - General Chief complaint: Hyperglycemia Stated complaint: HIGH GLUCOSE Time Seen by Provider: 12/03/18 11:47 Source: patient Mode of arrival: Ambulatory Limitations: No Limitations - History of Present Illness Initial comments: Miss Singh is a 38-year-old female with history of insulin-dependent and hypertension. She takes Levemir Humalog metformin. She did not eat breakfast today. She states that she feels dehydrated. She just didn't feel well. She denies any pain. She denies fever. Denies cough. She admitted to eating a poor diet last night for dinner. She ate takeout [place] food from a restaurant. Her blood sugar was 200 prior to arrival. She is concerned for elevated blood sugar. It appears that she has a diagnosis of COPD. She was admitted in August for acute ocular failure. Ms. Singh has had 5 visits to our emergency department in the last 4 months. Recently seen for chest pain 3 days ago on November 29. On all 3 previous EKGs sinus tachycardia has been present. In September CT angio chest negative for pulmonary embolism or acute process. August 29 of this year, echocardiogram was normal without cardiac disease or anatomic abnormality. Ejection fraction estimated to be 55-60%. Normal diastolic and systolic function. -: Gradual, This morning Consistency: constant Improves with: none Worsens with: none Associated Symptoms: malaise - Related Data Home Medications Medication Instructions Recorded Confirmed Last Taken Depakote 150 mg PO QHS 08/30/18 08/30/18 Unknown Furosemide [Lasix] 20 mg PO QDAY 08/30/18 08/30/18 Unknown Gabapentin [Neurontin] 300 mg PO BID 08/30/18 08/30/18 Unknown Humalog See Protocol SQ ACHS 08/30/18 08/30/18 Unknown Ibuprofen Ib 800 mg PO BID 08/30/18 08/30/18 Unknown Lipitor 20 mg PO QHS 08/30/18 08/30/18 Unknown Metformin ER (Nf) 500 mg PO BID 08/30/18 08/30/18 Unknown Metoprolol 25 mg PO BID 08/30/18 08/30/18 Unknown Montelukast [Singulair] 10 mg PO QHS 08/30/18 08/30/18 Unknown Multivitamin 1 tab PO DAILY 08/30/18 08/30/18 Unknown Seroquel 100 mg PO QHS 08/30/18 08/30/18 Unknown Valtrex 500 mg PO BID 08/30/18 08/30/18 Unknown Zantac 150 MG TAB 150 mg PO QHS 08/30/18 08/30/18 Unknown Zoloft 150 mg PO QDAY 08/30/18 08/30/18 Unknown hydrOXYzine 25 - 50 mg PO Q6HR PRN 08/30/18 08/30/18 Unknown traZODone 100 mg PO QHS 08/30/18 08/30/18 Unknown Previous Rx's Medication Instructions Recorded Last Taken Type Acetaminophen [Tylenol Arthritis] 650 mg PO Q6HR PRN #30 tablet.er 08/19/18 08/28/18 Rx Albuterol Sulfate [Proair 90 mcg IH Q4HR PRN #2 aer.pow.ba 08/19/18 08/28/18 Rx Respiclick] Ibuprofen [Motrin 600 MG tab] 600 mg PO Q8H PRN #30 tablet 08/19/18 08/28/18 Rx Ipratropium [place] [Atrovent Hfa] 12.9 gm IH Q4HR #1 hfa.aer.ad 08/19/18 08/28/18 Rx ALBUTEROL Inhaler(NF) [VENTOLIN 1 puff IH Q4H #1 inha 08/31/18 Unknown Rx Inhaler(NF)] ALBUTEROL NEB's [Proventil 0.083% 2.5 mg IH TID PRN #120 neb 08/31/18 Unknown Rx NEBS] Advair Diskus 250-50 mcg 2 puff IH BID #1 08/31/18 Unknown Rx Insulin Glargine [Lantus VIAL] 15 units SUB-Q BID #1 vial 08/31/18 Unknown Rx Prednisone [predniSONE 10 mg 10 mg PO .TAPER #1 tab.ds.pk 08/31/18 Unknown Rx (6-Day Pack, 21 Tabs)] Tiotropium [Spiriva] 1 puff IH Q24HRT #30 cap 08/31/18 Unknown Rx oxyCODONE /ACETAMINOPHEN [Percocet 1 tab PO Q6H PRN #10 tablet 08/31/18 Unknown Rx 5/325 mg] Acetaminophen [Tylenol Arthritis] 650 mg PO Q6HR PRN #30 tablet.er 09/27/18 Unknown Rx Albuterol Sulfate [Albuterol 0.63% 0.63 mg IH Q4HR PRN #2 ml 09/27/18 Unknown Rx NEBS] Albuterol Sulfate [Proair 90 mcg IH Q4HR PRN #2 aer.pow.ba 09/27/18 Unknown Rx Respiclick] predniSONE [Deltasone] 40 mg PO QDAY #8 tab 09/27/18 Unknown Rx Allergies Allergy/AdvReac Type Severity Reaction Status Date / Time Penicillins Allergy Anaphylaxis Verified 12/03/18 11:42 Sulfa (Sulfonamide AdvReac Anaphylaxis Verified 12/03/18 11:42 Antibiotics) ED Review of Systems ROS: Stated complaint: HIGH GLUCOSE Other details as noted in HPI Comment: All other systems reviewed and negative Constitutional: denies: fever, malaise Respiratory: denies: cough Gastrointestinal: denies: abdominal pain Genitourinary: denies: urgency Skin: denies: rash ED Past Medical Hx - Past Medical History Hx Hypertension: Yes Hx Heart Attack/AMI: Yes (2 ATTACKS,NO STENTS) Hx Congestive Heart Failure: Yes Hx Diabetes: Yes Hx Asthma: Yes Hx COPD: Yes Additional medical history: high cholestrol - Surgical History Hx Appendectomy: Yes Additional Surgical History: C-Sectionx2. d&c - Social History Smoking Status: Current Every Day Smoker Substance Use Type: Prescribed - Medications Home Medications: Home Medications Medication Instructions Recorded Confirmed Last Taken Type Acetaminophen [Tylenol Arthritis] 650 mg PO Q6HR PRN #30 tablet.er 08/19/18 08/29/18 08/28/18 Rx Albuterol Sulfate [Proair 90 mcg IH Q4HR PRN #2 aer.pow.ba 08/19/18 08/29/18 08/28/18 Rx Respiclick] Ibuprofen [Motrin 600 MG tab] 600 mg PO Q8H PRN #30 tablet 08/19/18 08/29/18 08/28/18 Rx Ipratropium [place] [Atrovent Hfa] 12.9 gm IH Q4HR #1 hfa.aer.ad 08/19/18 08/29/18 08/28/18 Rx Depakote 150 mg PO QHS 08/30/18 08/30/18 Unknown History Furosemide [Lasix] 20 mg PO QDAY 08/30/18 08/30/18 Unknown History Gabapentin [Neurontin] 300 mg PO BID 08/30/18 08/30/18 Unknown History Humalog See Protocol SQ ACHS 08/30/18 08/30/18 Unknown History Ibuprofen Ib 800 mg PO BID 08/30/18 08/30/18 Unknown History Lipitor 20 mg PO QHS 08/30/18 08/30/18 Unknown History Metformin ER (Nf) 500 mg PO BID 08/30/18 08/30/18 Unknown History Metoprolol 25 mg PO BID 08/30/18 08/30/18 Unknown History Montelukast [Singulair] 10 mg PO QHS 08/30/18 08/30/18 Unknown History Multivitamin 1 tab PO DAILY 08/30/18 08/30/18 Unknown History Seroquel 100 mg PO QHS 08/30/18 08/30/18 Unknown History Valtrex 500 mg PO BID 08/30/18 08/30/18 Unknown History Zantac 150 MG TAB 150 mg PO QHS 08/30/18 08/30/18 Unknown History Zoloft 150 mg PO QDAY 08/30/18 08/30/18 Unknown History hydrOXYzine 25 - 50 mg PO Q6HR PRN 08/30/18 08/30/18 Unknown History traZODone 100 mg PO QHS 08/30/18 08/30/18 Unknown History ALBUTEROL Inhaler(NF) [VENTOLIN 1 puff IH Q4H #1 inha 08/31/18 Unknown Rx Inhaler(NF)] ALBUTEROL NEB's [Proventil 0.083% 2.5 mg IH TID PRN #120 neb 08/31/18 Unknown Rx NEBS] Advair Diskus 250-50 mcg 2 puff IH BID #1 08/31/18 Unknown Rx Insulin Glargine [Lantus VIAL] 15 units SUB-Q BID #1 vial 08/31/18 Unknown Rx Prednisone [predniSONE 10 mg 10 mg PO .TAPER #1 tab.ds.pk 08/31/18 Unknown Rx (6-Day Pack, 21 Tabs)] Tiotropium [Spiriva] 1 puff IH Q24HRT #30 cap 08/31/18 Unknown Rx oxyCODONE /ACETAMINOPHEN [Percocet 1 tab PO Q6H PRN #10 tablet 08/31/18 Unknown Rx 5/325 mg] Acetaminophen [Tylenol Arthritis] 650 mg PO Q6HR PRN #30 tablet.er 09/27/18 Unknown Rx Albuterol Sulfate [Albuterol 0.63% 0.63 mg IH Q4HR PRN #2 ml 09/27/18 Unknown Rx NEBS] Albuterol Sulfate [Proair 90 mcg IH Q4HR PRN #2 aer.pow.ba 09/27/18 Unknown Rx Respiclick] predniSONE [Deltasone] 40 mg PO QDAY #8 tab 09/27/18 Unknown Rx ED Physical Exam - General Limitations: No Limitations General appearance: alert, in no apparent distress, other (speaking full word sentences normal conversation while hyperventilating) - Head Head exam: Present: atraumatic, normocephalic - Eye Eye exam: Present: normal appearance - ENT ENT exam: Present: mucous membranes moist - Neck Neck exam: Present: normal inspection, full ROM - Respiratory Respiratory exam: Present: normal lung sounds bilaterally. Absent: respiratory distress, wheezes, rales, rhonchi - Cardiovascular Cardiovascular Exam: Present: regular rate, normal rhythm, normal heart sounds. Absent: systolic murmur, diastolic murmur, rubs, gallop - GI/Abdominal GI/Abdominal exam: Present: soft, normal bowel sounds. Absent: distended, tenderness, guarding, rebound - Extremities Exam Extremities exam: Present: normal inspection - Back Exam Back exam: Present: normal inspection - Neurological Exam Neurological exam: Present: alert, oriented X3 - Psychiatric Psychiatric exam: Present: normal affect, normal mood - Skin Skin exam: Present: warm, dry, intact, normal color. Absent: rash ED Course Vital Signs 12/03/18 11:47 Temperature 98.3 F Pulse Rate 125 H Respiratory 16 Rate Blood Pressure 104/77 O2 Sat by Pulse 99 Oximetry ED Medical Decision Making - Lab Data Result diagrams: 12/03/18 11:54 - Medical Decision Making Ms. Singh presents with report of hyperglycemia and generalized malaise. She denies pain. Significant tachycardia noted on initial evaluation. After receiving a meal snacks in the ED, symptoms and tachycardia improved. No evidence of diabetic emergency discharged home. Critical care attestation.: If time is entered above; I have spent that time in minutes in the direct care of this critically ill patient, excluding procedure time. ED Disposition Clinical Impression: Diabetes mellitus, Malaise Disposition: TO HOME OR SELFCARE Is pt being admited?: No Does the pt Need Aspirin: No Condition: Stable Instructions: Diabetes Mellitus Type 2 in Adults (ED) Referrals: PRIMARY CARE,MD [Primary Care Provider] - 3-5 Days
[2018-12-03] MEDS ORDERED: ZOFRAN ODT PO ONE (12:17)
[2018-12-03 12:19] LABS: BUN/Creatinine Ratio 7; Blood Urea Nitrogen 5 mg/dL (7-17); Calcium 9.2 mg/dL (8.4-10.2); Hemolysis Index 1
[2018-12-03] MEDS ORDERED: ZOFRAN ODT ONE (12:19)
== END 2018-12-03 12:34 | disposition home or self-care (01) ==
LOC: ED 11:41
DX: E11.65 Type 2 diabetes mellitus with hyperglycemia (principal); R53.81 Other malaise; I11.0 Hypertensive heart disease with heart failure; I50.9 Heart failure, unspecified; J44.9 Chronic obstructive pulmonary disease, unspecified; E86.0 Dehydration; F17.200 Nicotine dependence, unspecified, uncomplicated; F19.10 Other psychoactive substance abuse, uncomplicated; E78.00 Pure hypercholesterolemia, unspecified; Z88.0 Allergy status to penicillin; Z88.2 Allergy status to sulfonamides; Z79.4 Long term (current) use of insulin; Z90.49 Acquired absence of other specified parts of digestive tract
CPT/HCPCS: 36415; 80048; 82962; 84703; 85025; 99283; Q0162

== ENCOUNTER 2019-01-29 10:12 | Emergency (ER) | payer MEDICARE ==
[2019-01-29 10:58] LABS: Bilirubin,Urine NEG (Negative); Blood,Urine LG (Negative); Color,Urine Yellow (Yellow); Protein,Urine <15 mg/dL mg/dL (Negative); RBC,Urine > 182.0 /HPF (0.0-6.0); Urobilinogen,Urine < 2.0 mg/dL (<2.0)
[2019-01-29 11:02] LABS: Eosinophils % (Auto) 2.3 % (0.0-4.3); Hematocrit 35.9 % (30.3-42.9); Hemoglobin 11.6 gm/dl (10.1-14.3); Lymphocytes % (Auto) 37.7 % (13.4-35.0); Mean Corpuscular HGB Conc 32 % (30-34); Mean Corpuscular Volume 83 fl (79-97); Monocytes % (Auto) 6.1 % (0.0-7.3); Platelet Count 347 K/mm3 (140-440); Red Blood Count 4.34 M/mm3 (3.65-5.03); Red Cell Distribution Width 15.9 % (13.2-15.2)
[2019-01-29 11:03] LABS: Basophils # (Auto) 0.1 K/mm3 (0.0-0.1); Basophils % (Auto) 0.7 % (0.0-1.8); Eosinophils # (Auto) 0.2 K/mm3 (0.0-0.4); Monocytes # (Auto) 0.5 K/mm3 (0.0-0.8)
[2019-01-29 11:31] LABS: Alanine Aminotransferase 13 units/L (7-56); Albumin 4.2 g/dL (3.9-5); BUN/Creatinine Ratio 17; Blood Urea Nitrogen 10 mg/dL (7-17); Calcium 9.4 mg/dL (8.4-10.2); Hemolysis Index 9
[2019-01-29] MEDS ORDERED: DUONEB *Not for PRN Use IH ONE (11:43)
--- NOTE | 2019-01-29 11:50 | Emergency Department Report ---
ED General Adult HPI - General Chief complaint: Nausea/Vomiting/Diarrhea Stated complaint: NAUSEA/VOMITING Time Seen by Provider: 01/29/19 11:23 Source: EMS Mode of arrival: Ambulatory Limitations: No Limitations - History of Present Illness Initial comments: Patient presents to the emergency department with a chief complaint of chest pain or shortness of breath. Patient has a history of congestive heart failure and COPD and states she feels that the both of them are flared up. She also complains of nausea vomiting and describes the chest pain as dull in nature without radiation. -: Sudden Location: chest Radiation: non-radiation Severity scale (0 -10): 4 Quality: dull Improves with: none Worsens with: none Associated Symptoms: denies other symptoms Treatments Prior to Arrival: none - Related Data Home Medications Medication Instructions Recorded Confirmed Last Taken Depakote 150 mg PO QHS 08/30/18 08/30/18 Unknown Furosemide [Lasix] 20 mg PO QDAY 08/30/18 08/30/18 Unknown Gabapentin [Neurontin] 300 mg PO BID 08/30/18 08/30/18 Unknown Humalog See Protocol SQ ACHS 08/30/18 08/30/18 Unknown Ibuprofen Ib 800 mg PO BID 08/30/18 08/30/18 Unknown Lipitor 20 mg PO QHS 08/30/18 08/30/18 Unknown Metformin ER (Nf) 500 mg PO BID 08/30/18 08/30/18 Unknown Metoprolol 25 mg PO BID 08/30/18 08/30/18 Unknown Montelukast [Singulair] 10 mg PO QHS 08/30/18 08/30/18 Unknown Multivitamin 1 tab PO DAILY 08/30/18 08/30/18 Unknown Seroquel 100 mg PO QHS 08/30/18 08/30/18 Unknown Valtrex 500 mg PO BID 08/30/18 08/30/18 Unknown Zantac 150 MG TAB 150 mg PO QHS 08/30/18 08/30/18 Unknown Zoloft 150 mg PO QDAY 08/30/18 08/30/18 Unknown hydrOXYzine 25 - 50 mg PO Q6HR PRN 08/30/18 08/30/18 Unknown traZODone 100 mg PO QHS 08/30/18 08/30/18 Unknown Previous Rx's Medication Instructions Recorded Last Taken Type Acetaminophen [Tylenol Arthritis] 650 mg PO Q6HR PRN #30 tablet.er 08/19/18 08/28/18 Rx Albuterol Sulfate [Proair 90 mcg IH Q4HR PRN #2 aer.pow.ba 08/19/18 08/28/18 Rx Respiclick] Ibuprofen [Motrin 600 MG tab] 600 mg PO Q8H PRN #30 tablet 08/19/18 08/28/18 Rx Ipratropium [place] [Atrovent Hfa] 12.9 gm IH Q4HR #1 hfa.aer.ad 08/19/18 08/28/18 Rx ALBUTEROL Inhaler(NF) [VENTOLIN 1 puff IH Q4H #1 inha 08/31/18 Unknown Rx Inhaler(NF)] ALBUTEROL NEB's [Proventil 0.083% 2.5 mg IH TID PRN #120 neb 08/31/18 Unknown Rx NEBS] Advair Diskus 250-50 mcg 2 puff IH BID #1 08/31/18 Unknown Rx Insulin Glargine [Lantus VIAL] 15 units SUB-Q BID #1 vial 08/31/18 Unknown Rx Prednisone [predniSONE 10 mg 10 mg PO .TAPER #1 tab.ds.pk 08/31/18 Unknown Rx (6-Day Pack, 21 Tabs)] Tiotropium [Spiriva] 1 puff IH Q24HRT #30 cap 08/31/18 Unknown Rx oxyCODONE /ACETAMINOPHEN [Percocet 1 tab PO Q6H PRN #10 tablet 08/31/18 Unknown Rx 5/325 mg] Acetaminophen [Tylenol Arthritis] 650 mg PO Q6HR PRN #30 tablet.er 09/27/18 Unknown Rx Albuterol Sulfate [Albuterol 0.63% 0.63 mg IH Q4HR PRN #2 ml 09/27/18 Unknown Rx NEBS] Albuterol Sulfate [Proair 90 mcg IH Q4HR PRN #2 aer.pow.ba 09/27/18 Unknown Rx Respiclick] predniSONE [Deltasone] 40 mg PO QDAY #8 tab 09/27/18 Unknown Rx Promethazine [Phenergan] 25 mg PO Q6HR PRN #10 tab 12/03/18 Unknown Rx ALBUTEROL Inhaler (OR & NICU) 2 puff IH Q4HR PRN #1 inhalation 01/29/19 Unknown Rx [ProAir HFA Inhaler] Azithromycin [Zithromax Z-CRYSTAL] 250 mg PO DAILY #6 tablet 01/29/19 Unknown Rx HYDROcodone/APAP 5-325 [[place] 1 each PO Q6HR PRN #12 tablet 01/29/19 Unknown Rx 5/325] Promethazine [Phenergan TAB] 25 mg PO Q6HR PRN #20 tab 01/29/19 Unknown Rx predniSONE [Deltasone] 20 mg PO DAILY #15 tablet 01/29/19 Unknown Rx Allergies Allergy/AdvReac Type Severity Reaction Status Date / Time Penicillins Allergy Anaphylaxis Verified 01/29/19 10:17 Sulfa (Sulfonamide AdvReac Anaphylaxis Verified 01/29/19 10:17 Antibiotics) ED Review of Systems ROS: Stated complaint: NAUSEA/VOMITING Other details as noted in HPI Constitutional: denies: chills, fever Eyes: denies: eye pain, eye discharge, vision change ENT: denies: ear pain, throat pain Respiratory: wheezing. denies: cough, shortness of breath Cardiovascular: chest pain. denies: palpitations Endocrine: no symptoms reported Gastrointestinal: denies: abdominal pain, nausea, diarrhea Genitourinary: denies: urgency, dysuria, discharge Musculoskeletal: denies: back pain, joint swelling, arthralgia Skin: denies: rash, lesions Neurological: denies: headache, weakness, paresthesias Psychiatric: denies: anxiety, depression Hematological/Lymphatic: denies: easy bleeding, easy bruising ED Past Medical Hx - Past Medical History Hx Hypertension: Yes Hx Heart Attack/AMI: Yes (2 ATTACKS,NO STENTS) Hx Congestive Heart Failure: Yes Hx Diabetes: Yes Hx Asthma: Yes Hx COPD: Yes Additional medical history: high cholestrol - Surgical History Hx Appendectomy: Yes Additional Surgical History: C-Sectionx2. d&c - Social History Smoking Status: Current Every Day Smoker Substance Use Type: None - Medications Home Medications: Home Medications Medication Instructions Recorded Confirmed Last Taken Type Acetaminophen [Tylenol Arthritis] 650 mg PO Q6HR PRN #30 tablet.er 08/19/18 08/29/18 08/28/18 Rx Albuterol Sulfate [Proair 90 mcg IH Q4HR PRN #2 aer.pow.ba 08/19/18 08/29/18 08/28/18 Rx Respiclick] Ibuprofen [Motrin 600 MG tab] 600 mg PO Q8H PRN #30 tablet 08/19/18 08/29/18 08/28/18 Rx Ipratropium [place] [Atrovent Hfa] 12.9 gm IH Q4HR #1 hfa.aer.ad 08/19/18 08/29/18 08/28/18 Rx Depakote 150 mg PO QHS 08/30/18 08/30/18 Unknown History Furosemide [Lasix] 20 mg PO QDAY 08/30/18 08/30/18 Unknown History Gabapentin [Neurontin] 300 mg PO BID 08/30/18 08/30/18 Unknown History Humalog See Protocol SQ ACHS 08/30/18 08/30/18 Unknown History Ibuprofen Ib 800 mg PO BID 08/30/18 08/30/18 Unknown History Lipitor 20 mg PO QHS 08/30/18 08/30/18 Unknown History Metformin ER (Nf) 500 mg PO BID 08/30/18 08/30/18 Unknown History Metoprolol 25 mg PO BID 08/30/18 08/30/18 Unknown History Montelukast [Singulair] 10 mg PO QHS 08/30/18 08/30/18 Unknown History Multivitamin 1 tab PO DAILY 08/30/18 08/30/18 Unknown History Seroquel 100 mg PO QHS 08/30/18 08/30/18 Unknown History Valtrex 500 mg PO BID 08/30/18 08/30/18 Unknown History Zantac 150 MG TAB 150 mg PO QHS 08/30/18 08/30/18 Unknown History Zoloft 150 mg PO QDAY 08/30/18 08/30/18 Unknown History hydrOXYzine 25 - 50 mg PO Q6HR PRN 08/30/18 08/30/18 Unknown History traZODone 100 mg PO QHS 08/30/18 08/30/18 Unknown History ALBUTEROL Inhaler(NF) [VENTOLIN 1 puff IH Q4H #1 inha 08/31/18 Unknown Rx Inhaler(NF)] ALBUTEROL NEB's [Proventil 0.083% 2.5 mg IH TID PRN #120 neb 08/31/18 Unknown Rx NEBS] Advair Diskus 250-50 mcg 2 puff IH BID #1 08/31/18 Unknown Rx Insulin Glargine [Lantus VIAL] 15 units SUB-Q BID #1 vial 08/31/18 Unknown Rx Prednisone [predniSONE 10 mg 10 mg PO .TAPER #1 tab.ds.pk 08/31/18 Unknown Rx (6-Day Pack, 21 Tabs)] Tiotropium [Spiriva] 1 puff IH Q24HRT #30 cap 08/31/18 Unknown Rx oxyCODONE /ACETAMINOPHEN [Percocet 1 tab PO Q6H PRN #10 tablet 08/31/18 Unknown Rx 5/325 mg] Acetaminophen [Tylenol Arthritis] 650 mg PO Q6HR PRN #30 tablet.er 09/27/18 Unknown Rx Albuterol Sulfate [Albuterol 0.63% 0.63 mg IH Q4HR PRN #2 ml 09/27/18 Unknown Rx NEBS] Albuterol Sulfate [Proair 90 mcg IH Q4HR PRN #2 aer.pow.ba 09/27/18 Unknown Rx Respiclick] predniSONE [Deltasone] 40 mg PO QDAY #8 tab 09/27/18 Unknown Rx Promethazine [Phenergan] 25 mg PO Q6HR PRN #10 tab 12/03/18 Unknown Rx ALBUTEROL Inhaler (OR & NICU) 2 puff IH Q4HR PRN #1 inhalation 01/29/19 Unknown Rx [ProAir HFA Inhaler] Azithromycin [Zithromax Z-CRYSTAL] 250 mg PO DAILY #6 tablet 01/29/19 Unknown Rx HYDROcodone/APAP 5-325 [[place] 1 each PO Q6HR PRN #12 tablet 01/29/19 Unknown Rx 5/325] Promethazine [Phenergan TAB] 25 mg PO Q6HR PRN #20 tab 01/29/19 Unknown Rx predniSONE [Deltasone] 20 mg PO DAILY #15 tablet 01/29/19 Unknown Rx ED Physical Exam - General Limitations: No Limitations General appearance: alert, in no apparent distress - Head Head exam: Present: atraumatic, normocephalic - Eye Eye exam: Present: normal appearance - ENT ENT exam: Present: mucous membranes moist - Neck Neck exam: Present: normal inspection - Respiratory Respiratory exam: Present: wheezes, rales. Absent: respiratory distress - Cardiovascular Cardiovascular Exam: Present: regular rate, normal rhythm. Absent: systolic murmur, diastolic murmur, rubs, gallop - GI/Abdominal GI/Abdominal exam: Present: soft, normal bowel sounds. Absent: distended, tenderness - Extremities Exam Extremities exam: Present: normal inspection - Back Exam Back exam: Present: normal inspection - Neurological Exam Neurological exam: Present: alert, oriented X3, CN II-XII intact. Absent: motor sensory deficit - Psychiatric Psychiatric exam: Present: normal affect, normal mood - Skin Skin exam: Present: warm, dry, intact, normal color. Absent: rash ED Course Vital Signs 01/29/19 01/29/19 01/29/19 10:21 12:33 13:01 Temperature 98.5 F Pulse Rate 91 H 87 90 Respiratory 20 18 15 Rate Blood Pressure 113/68 130/85 Blood Pressure 129/65 [Right] O2 Sat by Pulse 99 100 94 Oximetry 01/29/19 01/29/19 01/29/19 13:30 14:01 14:30 Temperature Pulse Rate 95 H 94 H Respiratory 16 13 Rate Blood Pressure 126/82 126/82 130/88 Blood Pressure [Right] O2 Sat by Pulse 98 Oximetry ED Medical Decision Making - Lab Data Result diagrams: 01/29/19 10:42 01/29/19 10:42 Lab Results 01/29/19 01/29/19 01/29/19 Range/Units 10:42 10:42 10:42 WBC 7.9 (4.5-11.0) K/mm3 RBC 4.34 (3.65-5.03) M/mm3 Hgb 11.6 (10.1-14.3) gm/dl Hct 35.9 (30.3-42.9) % MCV 83 (79-97) fl MCH 27 L (28-32) pg MCHC 32 (30-34) % RDW 15.9 H (13.2-15.2) % Plt Count 347 (140-440) K/mm3 Lymph % (Auto) 37.7 H (13.4-35.0) % La[place] % (Auto) 6.1 (0.0-7.3) % Eos % (Auto) 2.3 (0.0-4.3) % Baso % (Auto) 0.7 (0.0-1.8) % Lymph # 3.0 (1.2-5.4) K/mm3 Lares # 0.5 (0.0-0.8) K/mm3 Eos # 0.2 (0.0-0.4) K/mm3 Baso # 0.1 (0.0-0.1) K/mm3 Add Manual Diff Complete Seg Neutrophils % 53.2 (40.0-70.0) % Seg Neutrophils # 4.2 (1.8-7.7) K/mm3 Sodium 138 (137-145) mmol/L Potassium 4.4 (3.6-5.0) mmol/L Chloride 102.3 (98-107) mmol/L Carbon Dioxide 26 (22-30) mmol/L Anion Gap 14 mmol/L BUN 10 (7-17) mg/dL Creatinine 0.6 L (0.7-1.2) mg/dL Estimated GFR > 60 ml/min BUN/Creatinine Ratio 17 % Glucose 78 (65-100) mg/dL Calcium 9.4 (8.4-10.2) mg/dL Total Bilirubin 0.20 (0.1-1.2) mg/dL AST 15 (5-40) units/L ALT 13 (7-56) units/L Alkaline Phosphatase 50 (35-129) units/L Troponin T (0.00-0.029) ng/mL NT-Pro-B Natriuret Pep (0-450) pg/mL Total Protein 7.5 (6.3-8.2) g/dL Albumin 4.2 (3.9-5) g/dL Albumin/Globulin Ratio 1.3 % Lipase (13-60) units/L HCG, Qual Negative (Negative) Urine Color (Yellow) Urine Turbidity (Clear) Urine pH (5.0-7.0) Ur Specific [place] (1.003-1.030) Urine Protein (Negative) mg/dL Urine Glucose (UA) (Negative) mg/dL Urine Ketones (Negative) mg/dL Urine Blood (Negative) Urine Nitrite (Negative) Urine Bilirubin (Negative) Urine Urobilinogen (<2.0) mg/dL Ur Leukocyte Esterase (Negative) Urine WBC (Auto) (0.0-6.0) /HPF Urine RBC (Auto) (0.0-6.0) /HPF U Epithel Cells (Auto) (0-13.0) /HPF 01/29/19 01/29/19 01/29/19 Range/Units 10:45 10:45 10:45 WBC (4.5-11.0) K/mm3 RBC (3.65-5.03) M/mm3 Hgb (10.1-14.3) gm/dl Hct (30.3-42.9) % MCV (79-97) fl MCH (28-32) pg MCHC (30-34) % RDW (13.2-15.2) % Plt Count (140-440) K/mm3 Lymph % (Auto) (13.4-35.0) % Lares % (Auto) (0.0-7.3) % Eos % (Auto) (0.0-4.3) % Baso % (Auto) (0.0-1.8) % Lymph # (1.2-5.4) K/mm3 [place] # (0.0-0.8) K/mm3 Eos # (0.0-0.4) K/mm3 Baso # (0.0-0.1) K/mm3 Add Manual Diff Seg Neutrophils % (40.0-70.0) % Seg Neutrophils # (1.8-7.7) K/mm3 Sodium (137-145) mmol/L Potassium (3.6-5.0) mmol/L Chloride (98-107) mmol/L Carbon Dioxide (22-30) mmol/L Anion Gap mmol/L BUN (7-17) mg/dL Creatinine (0.7-1.2) mg/dL Estimated GFR ml/min BUN/Creatinine Ratio % Glucose (65-100) mg/dL Calcium (8.4-10.2) mg/dL Total Bilirubin (0.1-1.2) mg/dL AST (5-40) units/L ALT (7-56) units/L Alkaline Phosphatase (35-129) units/L Troponin T < 0.010 (0.00-0.029) ng/mL NT-Pro-B Natriuret Pep 207.5 (0-450) pg/mL Total Protein (6.3-8.2) g/dL Albumin (3.9-5) g/dL Albumin/Globulin Ratio % Lipase 34 (13-60) units/L HCG, Qual (Negative) Urine Color Yellow (Yellow) Urine Turbidity Hazy (Clear) Urine pH 6.0 (5.0-7.0) Ur Specific [place] 1.014 (1.003-1.030) Urine Protein <15 mg/dl (Negative) mg/dL Urine Glucose (UA) Neg (Negative) mg/dL Urine Ketones Neg (Negative) mg/dL Urine Blood Lg (Negative) Urine Nitrite Neg (Negative) Urine Bilirubin Neg (Negative) Urine Urobilinogen < 2.0 (<2.0) mg/dL Ur Leukocyte Esterase Neg (Negative) Urine WBC (Auto) 6.0 (0.0-6.0) /HPF Urine RBC (Auto) > 182.0 (0.0-6.0) /HPF U Epithel Cells (Auto) 5.0 (0-13.0) /HPF 01/29/19 Range/Units 13:43 WBC (4.5-11.0) K/mm3 RBC (3.65-5.03) M/mm3 Hgb (10.1-14.3) gm/dl Hct (30.3-42.9) % MCV (79-97) fl MCH (28-32) pg MCHC (30-34) % RDW (13.2-15.2) % Plt Count (140-440) K/mm3 Lymph % (Auto) (13.4-35.0) % La[place] % (Auto) (0.0-7.3) % Eos % (Auto) (0.0-4.3) % Baso % (Auto) (0.0-1.8) % Lymph # (1.2-5.4) K/mm3 [place] # (0.0-0.8) K/mm3 Eos # (0.0-0.4) K/mm3 Baso # (0.0-0.1) K/mm3 Add Manual Diff Seg Neutrophils % (40.0-70.0) % Seg Neutrophils # (1.8-7.7) K/mm3 Sodium (137-145) mmol/L Potassium (3.6-5.0) mmol/L Chloride (98-107) mmol/L Carbon Dioxide (22-30) mmol/L Anion Gap mmol/L BUN (7-17) mg/dL Creatinine (0.7-1.2) mg/dL Estimated GFR ml/min BUN/Creatinine Ratio % Glucose (65-100) mg/dL Calcium (8.4-10.2) mg/dL Total Bilirubin (0.1-1.2) mg/dL AST (5-40) units/L ALT (7-56) units/L Alkaline Phosphatase (35-129) units/L Troponin T < 0.010 (0.00-0.029) ng/mL NT-Pro-B Natriuret Pep (0-450) pg/mL Total Protein (6.3-8.2) g/dL Albumin (3.9-5) g/dL Albumin/Globulin Ratio % Lipase (13-60) units/L HCG, Qual (Negative) Urine Color (Yellow) Urine Turbidity (Clear) Urine pH (5.0-7.0) Ur Specific [place] (1.003-1.030) Urine Protein (Negative) mg/dL Urine Glucose (UA) (Negative) mg/dL Urine Ketones (Negative) mg/dL Urine Blood (Negative) Urine Nitrite (Negative) Urine Bilirubin (Negative) Urine Urobilinogen (<2.0) mg/dL Ur Leukocyte Esterase (Negative) Urine WBC (Auto) (0.0-6.0) /HPF Urine RBC (Auto) (0.0-6.0) /HPF U Epithel Cells (Auto) (0-13.0) /HPF - EKG Data -: EKG Interpreted by Me EKG shows normal: sinus rhythm Rate: normal - Radiology Data Radiology results: report reviewed - Medical Decision Making discussed results with patient Patient improved with breathing treatments Critical care attestation.: If time is entered above; I have spent that time in minutes in the direct care of this critically ill patient, excluding procedure time. ED Disposition Clinical Impression: COPD (chronic obstructive pulmonary disease), Nonspecific chest pain, Nausea & vomiting Disposition: TO HOME OR SELFCARE Is pt being admited?: No Does the pt Need Aspirin: No Condition: Stable Instructions: Chronic Obstructive Pulmonary Disease (ED), Acute Nausea and Vomiting (ED), Noncardiac Chest Pain (ED) Additional Instructions: return if worse Referrals: [facility] [Provider Group] - 3-5 Days [facility] [Provider Group] - 3-5 Days Time of Disposition: 15:48
--- NOTE | 2019-01-29 12:09 | XRay Report ---
CHEST 1 VIEW INDICATION: CP. COMPARISON: None available. FINDINGS: Support devices: None. Heart: Normal. Lungs/Pleura: Normal. Additional findings: None. IMPRESSION: Normal chest. Signer Name: Romain Curry MD Signed: 01/29/2019 12:04 PM Workstation Name: [id number]
[2019-01-29] MEDS ORDERED: ZOFRAN IV ONE ×2 (13:06→15:45)
[2019-01-29] MEDS ORDERED: MORPHINE IV ONE ×2 (13:35→15:45)
[2019-01-29] MEDS ORDERED: MORPHINE ONE (13:35)
[2019-01-29 17:24] VITALS: BP 119/65
== END 2019-01-29 17:27 | disposition home or self-care (01) ==
LOC: ED 10:12
DX: J44.9 Chronic obstructive pulmonary disease, unspecified (principal); I11.0 Hypertensive heart disease with heart failure; I50.9 Heart failure, unspecified; I25.2 Old myocardial infarction; E78.00 Pure hypercholesterolemia, unspecified; E11.9 Type 2 diabetes mellitus without complications; F17.200 Nicotine dependence, unspecified, uncomplicated; Z90.49 Acquired absence of other specified parts of digestive tract; Z79.899 Other long term (current) drug therapy; Z79.4 Long term (current) use of insulin; Z88.0 Allergy status to penicillin; Z88.2 Allergy status to sulfonamides
CPT/HCPCS: 36415; 71045; 80053; 81001; 83690; 83880; 84484; 84703; 85025; 93005; 93010; 94640; 96374; 96375; 96376; 99284; J2270; J2405

== ENCOUNTER 2019-02-13 19:46 | Emergency (ER) | payer MEDICARE ==
[2019-02-13 20:35] LABS: Basophils # (Auto) 0.1 K/mm3 (0.0-0.1); Basophils % (Auto) 0.9 % (0.0-1.8); Eosinophils # (Auto) 0.2 K/mm3 (0.0-0.4); Eosinophils % (Auto) 2.1 % (0.0-4.3); Hematocrit 34.5 % (30.3-42.9); Hemoglobin 11.2 gm/dl (10.1-14.3); Lymphocytes # (Auto) 2.3 K/mm3 (1.2-5.4); Lymphocytes % (Auto) 27.2 % (13.4-35.0); Mean Corpuscular HGB Conc 33 % (30-34); Mean Corpuscular Volume 82 fl (79-97); Monocytes # (Auto) 0.6 K/mm3 (0.0-0.8); Monocytes % (Auto) 7.2 % (0.0-7.3); Platelet Count 334 K/mm3 (140-440); Red Blood Count 4.22 M/mm3 (3.65-5.03); Red Cell Distribution Width 16.1 % (13.2-15.2)
[2019-02-13 20:39] LABS: Bilirubin,Urine NEG (Negative); Blood,Urine NEG (Negative); Color,Urine Yellow (Yellow); Mucus,Urine 1+ /HPF; Protein,Urine <15 mg/dL mg/dL (Negative); Urobilinogen,Urine < 2.0 mg/dL (<2.0); WBC,Urine < 1.0 /HPF (0.0-6.0)
[2019-02-13 20:42] LABS: Alanine Aminotransferase 9 units/L (7-56); BUN/Creatinine Ratio 15; Blood Urea Nitrogen 12 mg/dL (7-17); Calcium 9.7 mg/dL (8.4-10.2); Hemolysis Index 31
[2019-02-13 20:43] LABS: HCG Qualitative,Urine Negative (Negative)
[2019-02-13 20:46] LABS: Amphetamine Screen,Urine PRESUMPTIVE NEGATIVE; Benzodiazepines Screen,Urine PRESUMPTIVE NEGATIVE; Cannabinoid Screen,Urine PRESUMPTIVE NEGATIVE; Cocaine Screen,Urine PRESUMPTIVE NEGATIVE; Methadone Screen,Urine PRESUMPTIVE NEGATIVE; Opiate Screen,Urine PRESUMPTIVE NEGATIVE
[2019-02-13] MEDS ORDERED: HALDOL IM ONE (21:03)
--- NOTE | 2019-02-14 00:06 | Emergency Department Report ---
ED Psych HPI - General Chief Complaint: Psych Stated Complaint: SUCIDAL Time Seen by Provider: 02/13/19 20:33 Source: patient, EMS Mode of arrival: Ambulatory - History of Present Illness MD Complaint: suicidal ideation, feels depressed -: Gradual, days(s) Associated Psychiatric Symptoms: depression, suicidal ideation History of same: Yes Quality: getting worse Improves With: none Worsens With: none Context: not taking psychiatric Associated Symptoms: insomnia Treatments Prior to Arrival: placed on mental he - Related Data Home Medications Medication Instructions Recorded Confirmed Last Taken Albuterol Sulfate [Proair 90 mcg IH Q4H 01/29/19 02/13/19 02/13/19 Respiclick] AtorvaSTATin [Lipitor] 40 mg PO QHS 01/29/19 02/13/19 1 Day Ago ~02/12/19 Furosemide [Lasix] 20 mg PO QDAY 01/29/19 02/13/19 02/13/19 Gabapentin [Neurontin] 600 mg PO BID 01/29/19 02/13/19 02/13/19 Lispro Insulin [HumaLOG] 1 dose SQ ACHS 01/29/19 02/13/19 02/13/19 Metformin HCl [metFORMIN ER 500 mg PO BID 01/29/19 02/13/19 02/13/19 Gastric] Metoprolol [Lopressor] 50 mg PO BID 01/29/19 02/13/19 02/13/19 09:00 Sertraline [Zoloft] 100 mg PO QDAY 01/29/19 02/13/19 02/13/19 09:00 hydrOXYzine HCL [Atarax] 50 mg PO Q6HR PRN 01/29/19 02/13/19 02/13/19 traZODone [Desyrel] 100 mg PO QHS 01/29/19 02/13/19 1 Day Ago ~02/12/19 valACYclovir [Valtrex] 500 mg PO DAILY 01/29/19 02/13/19 02/13/19 Aspirin BABY CHEW TAB 81 mg PO DAILY 02/13/19 02/13/19 02/13/19 09:00 Co Q-10 100 mg PO DAILY 02/13/19 02/13/19 02/13/19 Divalproex ER 1,500 mg PO HS 02/13/19 02/13/19 1 Day Ago ~02/12/19 Fish Oil 1,000 mg PO DAILY 02/13/19 02/13/19 02/13/19 Flax Seed Oil 1,000 mg PO DAILY 02/13/19 02/13/19 02/13/19 Garlic 500 mg PO DAILY 02/13/19 02/13/19 02/13/19 Geodon 120 mg PO DAILY 02/13/19 02/13/19 02/13/19 Levemir VIAL 15 mg SQ BID 02/13/19 02/13/19 02/13/19 Melatonin 5 mg PO QHS 02/13/19 02/13/19 1 Day Ago ~02/12/19 Conde-3 1,040 mg PO DAILY 02/13/19 02/13/19 02/13/19 Potassium 10 meq PO DAILY 02/13/19 02/13/19 02/13/19 Victoza 2-Jose 1 vial SQ DAILY 02/13/19 02/13/19 02/13/19 Vitamin B-12 100 mcg PO DAILY 02/13/19 02/13/19 02/13/19 Vitamin C 250 mg Tablet Chew 500 mg PO DAILY 02/13/19 02/13/19 02/13/19 Vitamin D3 Complete Caplet 25 mcg PO DAILY 02/13/19 02/13/19 02/13/19 Allergies Allergy/AdvReac Type Severity Reaction Status Date / Time Penicillins Allergy Anaphylaxis Verified 01/29/19 10:17 Sulfa (Sulfonamide AdvReac Anaphylaxis Verified 01/29/19 10:17 Antibiotics) ED Review of Systems ROS: Stated complaint: SUCIDAL Other details as noted in HPI Other: GENERAL: No weight change, fatigue, weakness, fever, chills, or night sweats SKIN: No changes in skin or hair, no itching, no rashes, no jaundice HEAD: No trauma, headache, or visual changes EYES: No blurriness, tearing, itching, acute visual loss, conjunctival discoloration, or scleral icterus EARS: No hearing loss, tinnitus, vertigo, or earache NOSE: No rhinorrhea, stuffiness, sneezing, itching, or epistaxis MOUTH: No bleeding gums, hoarseness, sore throat, or swelling CARDIAC: No new murmur, chest pain, palpitations, dyspnea on exertion, orthopnea, PND, or edema RESPIRATORY: No shortness of breath, wheeze, cough, sputum production, hemoptysis, pneumonia, asthma, bronchitis, or emphysema GI: No change in appetite, nausea, vomiting, dysphagia, change in bowel frequency, diarrhea, constipation, bleeding, hematemesis, melena, hematochezia, or abdominal pain URINARY: No frequency, urgency, polyuria, dysuria, hematuria, or incontinence MUSCULOSKELETAL: No muscle weakness, joint stiffness, decrease in range of motion, redness, swelling NEUROLOGIC: No loss of sensation, numbness, tingling, tremors, weakness, paralysis, seizures HEMATOLOGIC: No anemia, easy bruising, bleeding, petechiae, or purpura ENDOCRINE: No hot or cold intolerance, sweating, polyuria, polydipsia or, polyph agia no thyroid problems PSYCHIATRIC: Depression, SI. No HI ED Past Medical Hx - Past Medical History Previous Medical History?: Yes Hx Hypertension: Yes Hx Heart Attack/AMI: Yes (2 ATTACKS,NO STENTS) Hx Congestive Heart Failure: Yes Hx Diabetes: Yes Hx Psychiatric Treatment: Yes (bipolar depression, schitozoeffective disorder,) Hx Asthma: Yes Hx COPD: Yes Additional medical history: high cholestrol - Surgical History Past Surgical History?: Yes Hx Appendectomy: Yes Additional Surgical History: C-Sectionx2. d&c - Social History Smoking Status: Current Every Day Smoker Substance Use Type: None - Medications Home Medications: Home Medications Medication Instructions Recorded Confirmed Last Taken Type Albuterol Sulfate [Proair 90 mcg IH Q4H 01/29/19 02/13/19 02/13/19 History Respiclick] AtorvaSTATin [Lipitor] 40 mg PO QHS 01/29/19 02/13/19 1 Day Ago History ~02/12/19 Furosemide [Lasix] 20 mg PO QDAY 01/29/19 02/13/19 02/13/19 History Gabapentin [Neurontin] 600 mg PO BID 01/29/19 02/13/19 02/13/19 History Lispro Insulin [HumaLOG] 1 dose SQ ACHS 01/29/19 02/13/19 02/13/19 History Metformin HCl [metFORMIN ER 500 mg PO BID 01/29/19 02/13/19 02/13/19 History Gastric] Metoprolol [Lopressor] 50 mg PO BID 01/29/19 02/13/19 02/13/19 09:00 History Sertraline [Zoloft] 100 mg PO QDAY 01/29/19 02/13/19 02/13/19 09:00 History hydrOXYzine HCL [Atarax] 50 mg PO Q6HR PRN 01/29/19 02/13/19 02/13/19 History traZODone [Desyrel] 100 mg PO QHS 01/29/19 02/13/19 1 Day Ago History ~02/12/19 valACYclovir [Valtrex] 500 mg PO DAILY 01/29/19 02/13/19 02/13/19 History Aspirin BABY CHEW TAB 81 mg PO DAILY 02/13/19 02/13/19 02/13/19 09:00 History Co Q-10 100 mg PO DAILY 02/13/19 02/13/19 02/13/19 History Divalproex ER 1,500 mg PO HS 02/13/19 02/13/19 1 Day Ago History ~02/12/19 Fish Oil 1,000 mg PO DAILY 02/13/19 02/13/19 02/13/19 History Flax Seed Oil 1,000 mg PO DAILY 02/13/19 02/13/19 02/13/19 History Garlic 500 mg PO DAILY 02/13/19 02/13/19 02/13/19 History Geodon 120 mg PO DAILY 02/13/19 02/13/19 02/13/19 History Levemir VIAL 15 mg SQ BID 02/13/19 02/13/19 02/13/19 History Melatonin 5 mg PO QHS 02/13/19 02/13/19 1 Day Ago History ~02/12/19 Conde-3 1,040 mg PO DAILY 02/13/19 02/13/19 02/13/19 History Potassium 10 meq PO DAILY 02/13/19 02/13/19 02/13/19 History Victoza 2-Jose 1 vial SQ DAILY 02/13/19 02/13/19 02/13/19 History Vitamin B-12 100 mcg PO DAILY 02/13/19 02/13/19 02/13/19 History Vitamin C 250 mg Tablet Chew 500 mg PO DAILY 02/13/19 02/13/19 02/13/19 History Vitamin D3 Complete Caplet 25 mcg PO DAILY 02/13/19 02/13/19 02/13/19 History ED Physical Exam - General Limitations: No Limitations - Other Other exam information: GENERAL: Patient in no acute distress HEAD: Normocephalic, atraumatic EYES: PERRLA, EOM intact, no scleral icterus, no conjunctival hemorrhage, visual urbina and acuity wnl NOSE: No tenderness, discharge, sinus tenderness MOUTH: No erythema, bleeding, exudate HEART: Regular rate and rhythm, no murmur, S1-S2 are auscultated, pulses are symmetric LUNGS: Bilateral breath sounds, No tachypnea, No retractions, No wheezing, rales, rhonchi ABDOMEN: Normal bowel sounds, no tenderness, no rebound, no guarding, no masses, no CVA tenderness MUSCULOSKELETAL: Normal joint range of motion, no redness, no swelling, no tenderness NEUROLOGIC: GCS 15, Alert and Oriented x3, Cranial nerves intact, normal sensation, normal strength, normal gait, no cerebellar deficit PSYCHIATRIC: Depression, SI, No HI. No hallucinations. SKIN: Skin is warm and dry, no wounds, no rashes ED Course Vital Signs 02/13/19 02/13/19 19:57 21:03 Temperature 98.3 F Pulse Rate 108 H Respiratory 16 16 Rate Blood Pressure 128/80 O2 Sat by Pulse 99 100 Oximetry ED Medical Decision Making - Lab Data Result diagrams: 02/13/19 20:01 02/13/19 20:01 Laboratory Results - last 24 hr 02/13/19 02/13/19 02/13/19 20:01 20:01 20:01 WBC 8.6 RBC 4.22 Hgb 11.2 Hct 34.5 MCV 82 MCH 27 L MCHC 33 RDW 16.1 H Plt Count 334 Lymph % (Auto) 27.2 Harrison % (Auto) 7.2 Eos % (Auto) 2.1 Baso % (Auto) 0.9 Lymph # 2.3 Harrison # 0.6 Eos # 0.2 Baso # 0.1 Seg Neutrophils % 62.6 Seg Neutrophils # 5.4 Sodium 139 Potassium 4.3 Chloride 102.6 Carbon Dioxide 22 Anion Gap 19 BUN 12 Creatinine 0.8 Estimated GFR > 60 BUN/Creatinine Ratio 15 Glucose 99 Calcium 9.7 Total Bilirubin 0.20 AST 10 ALT 9 Alkaline Phosphatase 46 Total Protein 7.3 Albumin 4.0 Albumin/Globulin Ratio 1.2 Urine Color Urine Turbidity Urine pH Ur Specific [place] Urine Protein Urine Glucose (UA) Urine Ketones Urine Blood Urine Nitrite Urine Bilirubin Urine Urobilinogen Ur Leukocyte Esterase Urine WBC (Auto) Urine RBC (Auto) U Epithel Cells (Auto) Urine Mucus Urine HCG, Qual Salicylates < 0.3 L Urine Opiates Screen Urine Methadone Screen Acetaminophen Ur Barbiturates Screen Ur Phencyclidine Scrn Ur Amphetamines Screen U Benzodiazepines Scrn Urine Cocaine Screen U Marijuana (THC) Screen Drugs of Abuse Note Plasma/Serum Alcohol 02/13/19 02/13/19 02/13/19 20:01 20:01 20:15 WBC RBC Hgb Hct MCV MCH MCHC RDW Plt Count Lymph % (Auto) [place] % (Auto) Eos % (Auto) Baso % (Auto) Lymph # Harrison # Eos # Baso # Seg Neutrophils % Seg Neutrophils # Sodium Potassium Chloride Carbon Dioxide Anion Gap BUN Creatinine Estimated GFR BUN/Creatinine Ratio Glucose Calcium Total Bilirubin AST ALT Alkaline Phosphatase Total Protein Albumin Albumin/Globulin Ratio Urine Color Yellow Urine Turbidity Slightly-cloudy Urine pH 6.0 Ur Specific [place] 1.024 Urine Protein <15 mg/dl Urine Glucose (UA) Neg Urine Ketones Neg Urine Blood Neg Urine Nitrite Neg Urine Bilirubin Neg Urine Urobilinogen < 2.0 Ur Leukocyte Esterase Neg Urine WBC (Auto) < 1.0 Urine RBC (Auto) 3.0 U Epithel Cells (Auto) 7.0 Urine Mucus 1+ Urine HCG, Qual Negative Salicylates Urine Opiates Screen Urine Methadone Screen Acetaminophen < 5.0 L Ur Barbiturates Screen Ur Phencyclidine Scrn Ur Amphetamines Screen U Benzodiazepines Scrn Urine Cocaine Screen U Marijuana (THC) Screen Drugs of Abuse Note Plasma/Serum Alcohol < 0.01 02/13/19 20:15 WBC RBC Hgb Hct MCV MCH MCHC RDW Plt Count Lymph % (Auto) [place] % (Auto) Eos % (Auto) Baso % (Auto) Lymph # [place] # Eos # Baso # Seg Neutrophils % Seg Neutrophils # Sodium Potassium Chloride Carbon Dioxide Anion Gap BUN Creatinine Estimated GFR BUN/Creatinine Ratio Glucose Calcium Total Bilirubin AST ALT Alkaline Phosphatase Total Protein Albumin Albumin/Globulin Ratio Urine Color Urine Turbidity Urine pH Ur Specific [place] Urine Protein Urine Glucose (UA) Urine Ketones Urine Blood Urine Nitrite Urine Bilirubin Urine Urobilinogen Ur Leukocyte Esterase Urine WBC (Auto) Urine RBC (Auto) U Epithel Cells (Auto) Urine Mucus Urine HCG, Qual Salicylates Urine Opiates Screen Presumptive negative Urine Methadone Screen Presumptive negative Acetaminophen Ur Barbiturates Screen Presumptive negative Ur Phencyclidine Scrn Presumptive negative Ur Amphetamines Screen Presumptive negative U Benzodiazepines Scrn Presumptive negative Urine Cocaine Screen Presumptive negative U Marijuana (THC) Screen Presumptive negative Drugs of Abuse Note Disclamer Plasma/Serum Alcohol - Medical Decision Making Patient medically clear for transfer. Critical care attestation.: If time is entered above; I have spent that time in minutes in the direct care of this critically ill patient, excluding procedure time. ED Disposition Clinical Impression: Suicidal ideations Depression Qualifiers: Depression Type: unspecified Qualified Code(s): F32.9 - Major depressive di sorder, single episode, unspecified Disposition: DC/[place]-65 PSY HOSP/PSY UNIT Is pt being admited?: No Condition: Stable Referrals: ESCOBAR HOPSON MD [Primary Care Provider] - 3-5 Days
[2019-02-14] MEDS: LOPRESSOR PO SCH ×2 (09:56→22:17)
[2019-02-14] MEDS: LASIX PO SCH (09:56)
[2019-02-14] MEDS: BABY ASPIRIN PO SCH (09:56)
[2019-02-14] MEDS: K-DUR PO SCH (09:57)
[2019-02-14] MEDS ORDERED: METFORMIN HCL 500 MG PO SCH (10:00)
[2019-02-14] MEDS ORDERED: LEVEMIR 15 UNIT SQ SCH (10:00)
[2019-02-14] MEDS ORDERED: LOPRESSOR PO SCH (10:00)
[2019-02-14] MEDS ORDERED: NON-FORMULARY (Potassium 10 MEQ) PO SCH (10:00)
[2019-02-14] MEDS ORDERED: NON-FORMULARY (Aspirin Baby Chew Tab 81 MG) PO SCH (10:00)
[2019-02-14] MEDS ORDERED: ATARAX PO PRN (14:21)
[2019-02-14] MEDS ORDERED: ZOLOFT PO SCH (15:00)
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
[2019-02-14] MEDS: GLUCOPHAGE XR PO SCH (19:00)
[2019-02-14] MEDS: ZOLOFT PO SCH (19:00)
[2019-02-14] MEDS ORDERED: DESYREL PO SCH ×2 (22:00)
[2019-02-14] MEDS ORDERED: GEODON PO SCH (22:00)
[2019-02-14] MEDS: LANTUS SUB-Q SCH (22:17)
[2019-02-15 09:26] VITALS: BP 116/67
[2019-02-15] MEDS: LOPRESSOR PO SCH (09:39)
[2019-02-15] MEDS ORDERED: K-DUR PO ONE (09:45)
[2019-02-15] MEDS: LASIX PO SCH (09:58)
[2019-02-15] MEDS: LANTUS SUB-Q SCH (09:59)
[2019-02-15] MEDS: GLUCOPHAGE XR PO SCH (09:59)
[2019-02-15] MEDS: BABY ASPIRIN PO SCH (09:59)
[2019-02-15] MEDS: K-DUR PO SCH (09:59)
[2019-02-15] MEDS: ZOLOFT PO SCH (10:25)
--- NOTE | 2019-02-15 10:37 | Progress Note ---
Subjective - Reason for Consult Consult date: 02/15/19 Reason for consult: Pyshciatry Follow-up - Chief Complaint Chief complaint: "I only wanted to see a therapist" 39 year old female that presents to the emergency room with depression, anxiety, and suicidal ideations. Today the patient was calm and cooperative during the assessment. She stated that she "only" came to ER looking to speak with a therapist because she could not schedule an appt with her psychiatrist until Apr 2019. She stated that she endorsed SI's to the ER staff to get "help quickly." She stated that her medications are "working" but would like therapy to go along with her medication treatment. She denies SI/HI's and AVH's. She denies erratic sleep and any juan symptoms. The patient acknowledged her current medication dosages when asked. Mental Status Exam - Vital signs Last Vital Signs Temp 98.4 F 02/15/19 09:11 Pulse 99 H 02/15/19 09:11 Resp 18 02/15/19 09:11 BP 116/67 02/15/19 09:11 Pulse Ox 97 02/15/19 09:11 - Exam Narrative exam: MSE: Appearance: calm, cooperative Behavior: regular eye contact Speech: regular rate and tone Mood: "okay" Affect: congruent to mood Thought Process: linear Thought Content: denies SI/HI's and AVH's Motor Activity: lying in bed Cognition: A/O x 3 Insight: appropriate Judgment: appropriate Assessment and Plan Impression: Hx of Mood DO and DEEPTI. Today the patient was calm and cooperative during the assessment. The patient is no threat to self. Recommendation/Plan: Rescind 1013. Continue Zoloft 200 mg Po daily for depression, Geodon 160 mg PO BID for mood, and Trazodone 200 mg PO QHS for mood. Discussed possible metabolic side effects of Geodon with the patient, she verbalized understanding. Discussed possible suicidality/medication induced juan with the patient reference antidepressants, she verbalized understanding. Dispo: The patient can follow up with [facility] for outpatient patient psy services. Staffed with Dr. Davin Arriola.
--- NOTE | 2019-02-15 11:59 | Progress Note ---
Subjective - Reason for Consult Consult date: 02/15/19 Reason for consult: Psychiatry Follow-up - Chief Complaint Chief complaint: "I only wanted to see a therapist" 39 year old female that presents to the emergency room with depression, anxiety, and suicidal ideations. Today the patient was calm and cooperative during the assessment. She stated that she "only" came to ER looking to speak with a therapist because she could not schedule an appt with her psychiatrist until Apr 2019. She stated that she endorsed SI's to the ER staff to get "help quickly." She stated that her medications are "working" but would like therapy to go along with her medication treatment. She denies SI/HI's and AVH's. She denies erratic sleep and any juan symptoms. The patient acknowledged her current medication dosages when asked. Mental Status Exam - Vital signs Last Vital Signs Temp 98.4 F 02/15/19 09:11 Pulse 99 H 02/15/19 09:11 Resp 18 02/15/19 09:11 BP 116/67 02/15/19 09:11 Pulse Ox 97 02/15/19 09:11 - Exam Narrative exam: MSE: Appearance: calm, cooperative Behavior: regular eye contact Speech: regular rate and tone Mood: "okay" Affect: congruent to mood Thought Process: circumstantial Thought Content: denies SI/HI's and AVH's Motor Activity: lying in bed Cognition: A/O x 3 Insight: fair Judgment: variable
== END 2019-02-15 14:15 | disposition home or self-care (01) ==
LOC: EEVIPCON 19:46 → ED 19:46
DX: F32.9 Major depressive disorder, single episode, unspecified (principal); G47.00 Insomnia, unspecified; I11.0 Hypertensive heart disease with heart failure; I50.9 Heart failure, unspecified; E11.9 Type 2 diabetes mellitus without complications; F25.9 Schizoaffective disorder, unspecified; J44.9 Chronic obstructive pulmonary disease, unspecified; E78.00 Pure hypercholesterolemia, unspecified; F17.200 Nicotine dependence, unspecified, uncomplicated; Z88.0 Allergy status to penicillin; Z88.2 Allergy status to sulfonamides; Z79.82 Long term (current) use of aspirin; Z79.899 Other long term (current) drug therapy; Z79.84 Long term (current) use of oral hypoglycemic drugs; Z90.49 Acquired absence of other specified parts of digestive tract
CPT/HCPCS: 36415; 80053; 80307; 81001; 81025; 82962; 85025; 96372; 99284; A9270; J1630; 80320; G0480; J1815

== ENCOUNTER 2019-03-12 19:34 | Emergency (ER) | payer MEDICARE ==
[2019-03-12] MEDS ORDERED: ASPIRIN PO ONE (19:51)
[2019-03-12] MEDS ORDERED: ZOFRAN IV ONE ×2 (20:13→22:18)
[2019-03-12] MEDS ORDERED: MORPHINE IV ONE (20:13)
--- NOTE | 2019-03-12 20:23 | XRay Report ---
CHEST 1 VIEW INDICATION: Chest Pain. COMPARISON: 02/26/2019. FINDINGS: Support devices: None. Heart: Within normal limits. Lungs/Pleura: No acute air space or interstitial disease. Additional findings: None. IMPRESSION: No acute abnormality. Signer Name: Colby Gregorio MD Signed: 03/12/2019 8:18 PM Workstation Name: [id number]
[2019-03-12 20:26] LABS: Basophils # (Auto) 0.1 K/mm3 (0.0-0.1); Basophils % (Auto) 0.8 % (0.0-1.8); Eosinophils # (Auto) 0.2 K/mm3 (0.0-0.4); Eosinophils % (Auto) 1.6 % (0.0-4.3); Hematocrit 33.1 % (30.3-42.9); Hemoglobin 11.1 gm/dl (10.1-14.3); Lymphocytes # (Auto) 3.1 K/mm3 (1.2-5.4); Lymphocytes % (Auto) 31.6 % (13.4-35.0); Mean Corpuscular HGB Conc 33 % (30-34); Mean Corpuscular Volume 82 fl (79-97); Monocytes # (Auto) 0.8 K/mm3 (0.0-0.8); Monocytes % (Auto) 8.1 % (0.0-7.3); Platelet Count 380 K/mm3 (140-440); Red Blood Count 4.04 M/mm3 (3.65-5.03); Red Cell Distribution Width 15.9 % (13.2-15.2)
[2019-03-12 20:37] LABS: INR 1.14 (0.87-1.13); Partial Thromboplastin Time 29.6 Sec. (24.2-36.6)
--- NOTE | 2019-03-12 20:44 | Emergency Department Report ---
ED Chest Pain HPI - General Chief Complaint: Chest Pain Stated Complaint: ABD PAIN Time Seen by Provider: 03/12/19 19:58 Source: patient, EMS Mode of arrival: Stretcher Limitations: No Limitations - History of Present Illness Initial Comments: 39-year-old Afro-[place] female presents to the emergency department with complaint of a one-week history of nausea and vomiting, midsternal chest pain radiating to her back and some abdominal discomfort. She says she is unable to keep down medications, food or liquids. The chest pains are sharp and intermi ttent. Her abdominal pain is towards the middle of the abdomen and is more of a soreness that she believes is related to the nausea and vomiting. She denies any dysuria, vaginal bleeding or discharge. She has a past medical history of CHF, COPD, rds-rwlkxna-pndyyqrqf diabetes, coronary artery disease with NH 2, hypertension, bipolar disorder and schizoaffective disorder. She also has a history of pulmonary embolism for which she is on Eliquist and says she is compliant with her medications. Her primary care physician is a Dr. Palma and her mining speculator is Dr. Beach. No recent travel or sick contacts at home. Severity scale (0 -10): 8 - Related Data Home Medications Medication Instructions Recorded Confirmed Last Taken Albuterol Sulfate [Proair 90 mcg IH Q4H 01/29/19 02/13/19 02/13/19 Respiclick] AtorvaSTATin [Lipitor] 40 mg PO QHS 01/29/19 02/13/19 1 Day Ago ~02/12/19 Furosemide [Lasix] 20 mg PO QDAY 01/29/19 02/13/19 02/13/19 Gabapentin [Neurontin] 600 mg PO BID 01/29/19 02/13/19 02/13/19 Lispro Insulin [HumaLOG] 1 dose SQ ACHS 01/29/19 02/13/19 02/13/19 Metformin HCl [metFORMIN ER 500 mg PO BID 01/29/19 02/13/19 02/13/19 Gastric] Metoprolol [Lopressor] 50 mg PO BID 01/29/19 02/13/19 02/13/19 09:00 Sertraline [Zoloft] 100 mg PO QDAY 01/29/19 02/13/19 02/13/19 09:00 hydrOXYzine HCL [Atarax] 50 mg PO Q6HR PRN 01/29/19 02/13/19 02/13/19 traZODone [Desyrel] 100 mg PO QHS 01/29/19 02/13/19 1 Day Ago ~02/12/19 valACYclovir [Valtrex] 500 mg PO DAILY 01/29/19 02/13/19 02/13/19 Aspirin BABY CHEW TAB 81 mg PO DAILY 02/13/19 02/13/19 02/13/19 09:00 Co Q-10 100 mg PO DAILY 02/13/19 02/13/19 02/13/19 Divalproex ER 1,500 mg PO HS 02/13/19 02/13/19 1 Day Ago ~02/12/19 Fish Oil 1,000 mg PO DAILY 02/13/19 02/13/19 02/13/19 Flax Seed Oil 1,000 mg PO DAILY 02/13/19 02/13/19 02/13/19 Garlic 500 mg PO DAILY 02/13/19 02/13/19 02/13/19 Geodon 120 mg PO DAILY 02/13/19 02/13/19 02/13/19 Levemir VIAL 15 unit SQ BID 02/13/19 02/14/19 02/13/19 Melatonin 5 mg PO QHS 02/13/19 02/13/19 1 Day Ago ~02/12/19 [place]-3 1,040 mg PO DAILY 02/13/19 02/13/19 02/13/19 Potassium 10 meq PO DAILY 02/13/19 02/13/19 02/13/19 Victoza 2-Jose 1 vial SQ DAILY 02/13/19 02/13/19 02/13/19 Vitamin B-12 100 mcg PO DAILY 02/13/19 02/13/19 02/13/19 Vitamin C 250 mg Tablet Chew 500 mg PO DAILY 02/13/19 02/13/19 02/13/19 Vitamin D3 Complete Caplet 25 mcg PO DAILY 02/13/19 02/13/19 02/13/19 Previous Rx's Medication Instructions Recorded Last Taken Type Nitrofurantoin [place]/M-Cryst 100 mg PO Q12HR #14 capsule 03/13/19 Unknown Rx [Macrobid CAP] Ondansetron [Zofran Odt] 4 mg PO Q8HR PRN #12 tab.rapdis 03/13/19 Unknown Rx Allergies Allergy/AdvReac Type Severity Reaction Status Date / Time Penicillins Allergy Anaphylaxis Verified 01/29/19 10:17 Sulfa (Sulfonamide AdvReac Anaphylaxis Verified 01/29/19 10:17 Antibiotics) Heart Score - HEART Score History: Slightly suspicious EKG: Normal Age: < 45 Risk factors: > 3 risk factors or hx of atherosclerotic disease Troponin: < normal limit HEART Score: 2 - Critical Actions Critical Actions: 0-3 pts:0.9-1.7%risk of adverse cardiac event.Candidate for discharge ED Review of Systems ROS: Stated complaint: ABD PAIN Other details as noted in HPI Comment: All other systems reviewed and negative Constitutional: denies: chills, fever Eyes: denies: eye pain, vision change ENT: denies: ear pain, throat pain Respiratory: denies: cough, shortness of breath Cardiovascular: chest pain. denies: palpitations Gastrointestinal: abdominal pain, nausea, vomiting Genitourinary: denies: dysuria, discharge Musculoskeletal: back pain. denies: arthralgia Skin: denies: rash, lesions Neurological: denies: headache, weakness ED Past Medical Hx - Past Medical History Previous Medical History?: Yes Hx Hypertension: Yes Hx Heart Attack/AMI: Yes (2 ATTACKS,NO STENTS) Hx Congestive Heart Failure: Yes Hx Diabetes: Yes Hx Psychiatric Treatment: Yes (bipolar depression, schizoaffective disorder) Hx Asthma: Yes Hx COPD: Yes Additional medical history: high cholestrol - Surgical History Past Surgical History?: Yes Hx Appendectomy: Yes Additional Surgical History: C-Sectionx2. d&c - Social History Smoking Status: Current Every Day Smoker Substance Use Type: None - Medications Home Medications: Home Medications Medication Instructions Recorded Confirmed Last Taken Type Albuterol Sulfate [Proair 90 mcg IH Q4H 01/29/19 02/13/19 02/13/19 History Respiclick] AtorvaSTATin [Lipitor] 40 mg PO QHS 01/29/19 02/13/19 1 Day Ago History ~02/12/19 Furosemide [Lasix] 20 mg PO QDAY 01/29/19 02/13/19 02/13/19 History Gabapentin [Neurontin] 600 mg PO BID 01/29/19 02/13/19 02/13/19 History Lispro Insulin [HumaLOG] 1 dose SQ ACHS 01/29/19 02/13/19 02/13/19 History Metformin HCl [metFORMIN ER 500 mg PO BID 01/29/19 02/13/19 02/13/19 History Gastric] Metoprolol [Lopressor] 50 mg PO BID 01/29/19 02/13/19 02/13/19 09:00 History Sertraline [Zoloft] 100 mg PO QDAY 01/29/19 02/13/19 02/13/19 09:00 History hydrOXYzine HCL [Atarax] 50 mg PO Q6HR PRN 01/29/19 02/13/19 02/13/19 History traZODone [Desyrel] 100 mg PO QHS 01/29/19 02/13/19 1 Day Ago History ~02/12/19 valACYclovir [Valtrex] 500 mg PO DAILY 01/29/19 02/13/19 02/13/19 History Aspirin BABY CHEW TAB 81 mg PO DAILY 02/13/19 02/13/19 02/13/19 09:00 History Co Q-10 100 mg PO DAILY 02/13/19 02/13/19 02/13/19 History Divalproex ER 1,500 mg PO HS 02/13/19 02/13/19 1 Day Ago History ~02/12/19 Fish Oil 1,000 mg PO DAILY 02/13/19 02/13/19 02/13/19 History Flax Seed Oil 1,000 mg PO DAILY 02/13/19 02/13/19 02/13/19 History Garlic 500 mg PO DAILY 02/13/19 02/13/19 02/13/19 History Geodon 120 mg PO DAILY 02/13/19 02/13/19 02/13/19 History Levemir VIAL 15 unit SQ BID 02/13/19 02/14/19 02/13/19 History Melatonin 5 mg PO QHS 02/13/19 02/13/19 1 Day Ago History ~02/12/19 [place]-3 1,040 mg PO DAILY 02/13/19 02/13/19 02/13/19 History Potassium 10 meq PO DAILY 02/13/19 02/13/19 02/13/19 History Victoza 2-Jose 1 vial SQ DAILY 02/13/19 02/13/19 02/13/19 History Vitamin B-12 100 mcg PO DAILY 02/13/19 02/13/19 02/13/19 History Vitamin C 250 mg Tablet Chew 500 mg PO DAILY 02/13/19 02/13/19 02/13/19 History Vitamin D3 Complete Caplet 25 mcg PO DAILY 02/13/19 02/13/19 02/13/19 History Nitrofurantoin [place]/M-Cryst 100 mg PO Q12HR #14 capsule 03/13/19 Unknown Rx [Macrobid CAP] Ondansetron [Zofran Odt] 4 mg PO Q8HR PRN #12 tab.rapdis 03/13/19 Unknown Rx ED Physical Exam - General Limitations: No Limitations - Other Other exam information: GENERAL: The patient is well-developed well-nourished. HENT: Normocephalic. Atraumatic. Patient has moist mucous membranes. EYES: Extraocular motions are intact. NECK: Supple. Trachea is midline. CHEST/LUNGS: Clear to auscultation. There is no respiratory distress noted. There is some reproducible midsternal chest pain to palpation. HEART/CARDIOVASCULAR: Regular. There is no tachycardia. There is no murmur. ABDOMEN: Abdomen is soft. Mild epigastric tenderness to palpation. No guarding. Patient has normal bowel sounds. Obese habitus. SKIN: Skin is warm and dry. NEURO: The patient is awake, alert, and oriented. The patient is cooperative. The patient has no focal neurologic deficits. Normal speech. MUSCULOSKELETAL: There is no tenderness or deformity. There is no evidence of acute injury. ED Course Vital Signs 03/12/19 03/12/19 03/12/19 19:45 20:00 20:54 Temperature 98.7 F Pulse Rate 111 H 104 H Respiratory 16 14 16 Rate Blood Pressure 102/71 99/69 Blood Pressure 102/71 [Left] O2 Sat by Pulse 98 95 Oximetry 03/12/19 03/12/19 03/12/19 21:24 21:35 22:31 Temperature Pulse Rate 106 H 100 H Respiratory 16 11 L 16 Rate Blood Pressure 111/73 105/59 Blood Pressure [Left] O2 Sat by Pulse 97 Oximetry 03/12/19 03/12/19 03/12/19 23:01 23:10 23:31 Temperature Pulse Rate 92 H 88 Respiratory 15 16 11 L Rate Blood Pressure 105/59 106/59 Blood Pressure [Left] O2 Sat by Pulse 94 94 Oximetry 03/13/19 03/13/19 00:00 00:10 Temperature Pulse Rate 99 H Respiratory 14 16 Rate Blood Pressure 103/51 Blood Pressure [Left] O2 Sat by Pulse 93 Oximetry - Reevaluation(s) Reevaluation #1: 03/13/19 04:33 Wells' Criteria for Pulmonary Embolism from [place] on 03/13/2019 RESULT SUMMARY: 1.5 points Low risk group: 1.3% chance of PE in an ED population. Another study assigned scores ? 4 as PE Unlikely and had a 3% incidence of PE. INPUTS: Clinical signs and symptoms of DVT > 0 = No PE is #1 diagnosis OR equally likely > 0 = No Heart rate > 100 > 1.5 = Yes Immobilization at least 3 days OR surgery in the previous 4 weeks > 0 = No Previous, objectively diagnosed PE or DVT > 0 = No Hemoptysis > 0 = No Malignancy w/ treatment within 6 months or palliative > 0 = No DARRYL score - Darryl Score Age > 65: (0) No Aspirin use within the Past 7 Days: (0) No 3 or more CAD Risk Factors: (0) No 2 or more Angina events in past 24 hrs: (1) Yes Known CAD with more than 50% Stenosis: (0) No Elevated Cardiac Markers: (0) No ST Deviation Greater than 0.5mm: (0) No DARRYL Score: 1 ED Medical Decision Making - Lab Data Result diagrams: 03/12/19 20:08 03/12/19 20:08 - EKG Data -: EKG Interpreted by Me EKG shows normal: sinus rhythm, axis, intervals, QRS complexes, ST-T waves Rate: normal - EKG Data When compared to previous EKG there are: no significant change Interpretation: unchanged when compared t (02/26/19) - Radiology Data Radiology results: image reviewed interpreted by me: Chest x-ray does not show any acute process. There are no pleural effusions, obvious pneumonia and there is no pneumothorax. Abdominal x-ray shows nonspecific nonobstructive bowel gas - Medical Decision Making This patient presents to the emergency department with a one-week history of some midsternal chest pain, epigastric abdominal pain, nausea and vomiting. On examination the chest pain is reproducible to palpation of the chest wall. EKG does not show any signs of ST elevation NH, ischemia or dysrhythmia. Chest x- ray does not show any acute process including any pneumonia, focal consolidation, pneumothorax. Abdominal x-ray shows nonspecific bowel gas. Her labs have been unremarkable including negative troponins 3. Normal CBC, CMP. Urinalysis shows a moderate urinary tract infection. Patient was given doses of pain and nausea medication and antibiotics for the UTI. She was reevaluated multiple times over multiple hours and is improved. She was seen sleeping and/or resting comfortably multiple times throughout her ED course. She is low on the heart and DARRYL scores. Patient appears safe for discharge home at this time. However, given a hard score of 2 or less and our hospital protocol for chest pains, a face sheet has been sent over to [facility] cardiology, who will call her sooner to arrange an outpatient follow-up within the next 48 hours. She will return to the ER with any worsening of her symptoms or any acute distress. Critical Care Time: No Critical care attestation.: If time is entered above; I have spent that time in minutes in the direct care of this critically ill patient, excluding procedure time. ED Disposition Clinical Impression: Chest pain Qualifiers: Chest pain type: unspecified Qualified Code(s): R07.9 - Chest pain, unspecified Abdominal pain Qualifiers: Abdominal location: unspecified location Qualified Code(s): R10.9 - Unspecified abdominal pain Nausea & vomiting Qualifiers: Vomiting type: unspecified Vomiting Intractability: non-intractable Qualified Code(s): R11.2 - Nausea with vomiting, unspecified UTI (urinary tract infection) Qualifiers: Urinary tract infection type: acute cystitis Hematuria presence: without hematuria Qualified Code(s): N30.00 - Acute cystitis without hematuria Disposition: DC- TO HOME OR SELFCARE Is pt being admited?: No Condition: Stable Instructions: Chest Pain (ED), Acute Nausea and Vomiting (ED), Abdominal Pain (ED) Additional Instructions: Please follow-up with your primary care physician in the next few days. Incr ease your oral rehydration. You will be contacted by someone from [facility] cardiology for a close outpatient follow-up appointment in the next few days. Return to the emergency Department with any worsening of your symptoms or any acute distress. Prescriptions: Nitrofurantoin [place]/M-Cryst [Macrobid CAP] 100 mg PO Q12HR #14 capsule Ondansetron [Zofran Odt] 4 mg PO Q8HR PRN #12 tab.rapdis PRN Reason: Nausea Referrals: Primary Care Physician, Your [Other] - 2-3 Days [facility] [Provider Group] - 2-3 Days
[2019-03-12 20:49] LABS: BUN/Creatinine Ratio 17; Blood Urea Nitrogen 15 mg/dL (7-17); Calcium 9.3 mg/dL (8.4-10.2); Hemolysis Index 5
[2019-03-12 20:53] LABS: Alanine Aminotransferase 30 units/L (7-56); Albumin 4.2 g/dL (3.9-5)
[2019-03-12 20:54] LABS: Bilirubin,Direct < 0.2 mg/dL (0-0.2)
--- NOTE | 2019-03-12 21:22 | XRay Report ---
Abdomen 2 views. 03/12/2019. HISTORY: Abdominal pain. FINDINGS: Gas is scattered throughout the abdomen in a nonobstructive fashion. Negative for free air, constipation or suspicious calcification. Signer Name: Colby Gregorio MD Signed: 03/12/2019 9:18 PM Workstation Name: [id number]
[2019-03-12] MEDS ORDERED: BENADRYL IV ONE (22:18)
[2019-03-12 23:07] LABS: Bacteria,Urine 1+ /HPF (Negative); Bilirubin,Urine NEG (Negative); Blood,Urine MOD (Negative); Color,Urine Amber (Yellow); Mucus,Urine 3+ /HPF; Urobilinogen,Urine < 2.0 mg/dL (<2.0)
[2019-03-12] MEDS ORDERED: NORCO 5/325 PO ONE (23:08)
[2019-03-12] MEDS ORDERED: MACROBID PO ONE (23:20)
[2019-03-13 00:12] VITALS: BP 103/51
== END 2019-03-13 01:15 | disposition home or self-care (01) ==
LOC: ED 19:34
DX: N39.0 Urinary tract infection, site not specified (principal); I11.0 Hypertensive heart disease with heart failure; I50.9 Heart failure, unspecified; I25.2 Old myocardial infarction; E11.9 Type 2 diabetes mellitus without complications; F31.9 Bipolar disorder, unspecified; J44.9 Chronic obstructive pulmonary disease, unspecified; E78.00 Pure hypercholesterolemia, unspecified; F17.200 Nicotine dependence, unspecified, uncomplicated; Z90.49 Acquired absence of other specified parts of digestive tract; Z79.899 Other long term (current) drug therapy; Z88.2 Allergy status to sulfonamides; Z88.0 Allergy status to penicillin
CPT/HCPCS: 36415; 71045; 74019; 80048; 80076; 81001; 83880; 84484; 84703; 85025; 85610; 85730; 87086; 93005; 93010; 96374; 96375; 96376; 99285; J1200; J2270; J2405

== ENCOUNTER 2019-04-22 00:27 | Observation (INO) | payer MEDICARE ==
[2019-04-22] MEDS ORDERED: PROVENTIL IH ONE (00:35)
--- NOTE | 2019-04-22 00:35 | Emergency Department Report ---
HPI - General Time Seen by Provider: 04/22/19 00:30 - HPI HPI: 39-year-old -Tong[place] female presents to the emergency department via EMS from home with complaint of a 2-3 day history of progressively worsening shortness of breath and coughing. She has a past medical history of coronary artery disease with previous OH, pulmonary embolism on anticoagulation (eliquist), CHF, COPD on 2 L home O2 via nasal cannula, ind-ztdloyk-kxgadaeod diabetes, bipolar disorder and schizoaffective disorder. Her primary care physician is a Dr. Oconnor and her custodial maintenance worker is a Dr. Beach. She has been using her albuterol inhaler and nebulizer treatments multiple times without any relief. No recent travel or sick contacts at home. EMS started her on a breathing treatment in route. ED Past Medical Hx - Past Medical History Hx Hypertension: Yes Hx Heart Attack/AMI: Yes (2 ATTACKS,NO STENTS) Hx Congestive Heart Failure: Yes Hx Diabetes: Yes Hx Psychiatric Treatment: Yes (bipolar depression, schizoaffective disorder) Hx Asthma: Yes Hx COPD: Yes Additional medical history: high cholestrol - Surgical History Hx Appendectomy: Yes Additional Surgical History: C-Sectionx2. d&c - Social History Smoking Status: Current Every Day Smoker Substance Use Type: None - Medications Home Medications: Home Medications Medication Instructions Recorded Confirmed Last Taken Type Albuterol Sulfate [Proair 90 mcg IH Q4H 01/29/19 02/13/19 02/13/19 History Respiclick] AtorvaSTATin [Lipitor] 40 mg PO QHS 01/29/19 02/13/19 1 Day Ago History ~02/12/19 Furosemide [Lasix] 20 mg PO QDAY 01/29/19 02/13/19 02/13/19 History Gabapentin [Neurontin] 600 mg PO BID 01/29/19 02/13/19 02/13/19 History Lispro Insulin [HumaLOG] 1 dose SQ ACHS 01/29/19 02/13/19 02/13/19 History Metformin HCl [metFORMIN ER 500 mg PO BID 01/29/19 02/13/19 02/13/19 History Gastric] Metoprolol [Lopressor] 50 mg PO BID 01/29/19 02/13/19 02/13/19 09:00 History Sertraline [Zoloft] 100 mg PO QDAY 01/29/19 02/13/1902/13/19 09:00 History hydrOXYzine HCL [Atarax] 50 mg PO Q6HR PRN 01/29/19 02/13/19 02/13/19 History traZODone [Desyrel] 100 mg PO QHS 01/29/19 02/13/19 1 Day Ago History ~02/12/19 valACYclovir [Valtrex] 500 mg PO DAILY 01/29/19 02/13/19 02/13/19 History Aspirin BABY CHEW TAB 81 mg PO DAILY 02/13/19 02/13/19 02/13/19 09:00 History Co Q-10 100 mg PO DAILY 02/13/19 02/13/19 02/13/19 History Divalproex ER 1,500 mg PO HS 02/13/19 02/13/19 1 Day Ago History ~02/12/19 Fish Oil 1,000 mg PO DAILY 02/13/19 02/13/19 02/13/19 History Flax Seed Oil 1,000 mg PO DAILY 02/13/19 02/13/19 02/13/19 History Garlic 500 mg PO DAILY 02/13/19 02/13/19 02/13/19 History Geodon 120 mg PO DAILY 02/13/19 02/13/19 02/13/19 History Levemir VIAL 15 unit SQ BID 02/13/19 02/14/19 02/13/19 History Melatonin 5 mg PO QHS 02/13/19 02/13/19 1 Day Ago History ~02/12/19 [place]-3 1,040 mg PO DAILY 02/13/19 02/13/19 02/13/19 History Potassium 10 meq PO DAILY 02/13/19 02/13/19 02/13/19 History Victoza 2-Jose 1 vial SQ DAILY 02/13/19 02/13/19 02/13/19 History Vitamin B-12 100 mcg PO DAILY 02/13/19 02/13/19 02/13/19 History Vitamin C 250 mg Tablet Chew 500 mg PO DAILY 02/13/19 02/13/19 02/13/19 History Vitamin D3 Complete Caplet 25 mcg PO DAILY 02/13/19 02/13/19 02/13/19 History Nitrofurantoin [place]/M-Cryst 100 mg PO Q12HR #14 capsule 03/13/19 Unknown Rx [Macrobid CAP] Ondansetron [Zofran Odt] 4 mg PO Q8HR PRN #12 tab.artiedis 03/13/19 Unknown Rx ED Review of Systems ROS: Stated complaint: BLAS Other details as noted in HPI Comment: All other systems reviewed and negative Constitutional: denies: chills, fever Eyes: denies: eye pain, vision change ENT: denies: ear pain, throat pain Respiratory: cough, shortness of breath, wheezing Cardiovascular: denies: chest pain, edema Gastrointestinal: denies: abdominal pain, vomiting Genitourinary: denies: dysuria, discharge Musculoskeletal: denies: back pain, arthralgia Skin: denies: rash, lesions Neurological: denies: headache, weakness Physical Exam - Physical Exam Physical Exam: GENERAL: The patient is well-developed well-nourished. HENT: Normocephalic. Atraumatic. Patient has moist mucous membranes. EYES: Extraocular motions are intact. Pupils equal reactive to light bilaterally. NECK: Supple. Trachea is midline. CHEST/LUNGS: Moderate wheezing throughout the chest. There is tachypnea, accessory muscle use and conversational dyspnea. There is respiratory distress noted. HEART/CARDIOVASCULAR: Regular. There is mild tachycardia. There is no murmur. ABDOMEN: Abdomen is soft, nontender. Patient has normal bowel sounds. There is no abdominal distention. SKIN: Skin is warm and dry. NEURO: The patient is awake, alert, and oriented. The patient is cooperative. The patient has no focal neurologic deficits. MUSCULOSKELETAL: There is no tenderness or deformity. There is no evidence of acute injury. ED Medical Decision Making - Lab Data Result diagrams: 04/22/19 00:30 04/22/19 00:30 - EKG Data EKG shows normal: sinus rhythm, axis, intervals, QRS complexes, ST-T waves Rate: tachycardia (127 bpm) - EKG Data When compared to previous EKG there are: no significant change Interpretation: unchanged when compared t (03/12/19) - Radiology Data Radiology results: image reviewed interpreted by me: Chest x-ray does not show any acute process. There are no pleural effusions, obvious pneumonia and there is no pneumothorax. - Medical Decision Making This patient presents with shortness of breath, wheezing, coughing and with respiratory distress. She has tachypnea, accessory muscle use and conversational dyspnea. The patient was placed on a BiPAP and given a continuous breathing treatment. She was also given Solu-Medrol and magnesium. Upon reevaluation she is improved and no longer is in respiratory distress but still appears to be BiPAP dependent. Labs have been unremarkable. Chest x-ray did not show any pleural effusions, pneumonia, pneumothorax, focal consolidation, or any other acute process. Patient will be admitted to the hospital for further evaluation and treatment and was accepted for admission by the hospitalist, Dr. Givens. - Differential Diagnosis COPD, Pneumonia, CHF, OH Critical Care Time: Yes Critical care time in (mins) excluding proc time.: 31 Critical care attestation.: If time is entered above; I have spent that time in minutes in the direct care of this critically ill patient, excluding procedure time. Critical care time was spent on this patient and doing her initial evaluation, multiple re-evaluations, ordering and interpretation of labs and imaging, BiPAP management. Critical Care Time: 31 minutes ED Disposition Clinical Impression: COPD with exacerbation, Acute respiratory distress Disposition: OP ADMIT IP TO THIS HOSP Is pt being admited?: Yes Condition: Serious Instructions: Chronic Obstructive Pulmonary Disease (ED) Referrals: JANKI OCONNOR MD [Primary Care Provider] - 3-5 Days Time of Disposition: 02:32
[2019-04-22] MEDS ORDERED: ATROVENT IH ONE (00:36)
[2019-04-22] MEDS ORDERED: SOLU-Medrol IV ONE (00:42)
[2019-04-22] MEDS ORDERED: MAGNESIUM SULFATE 2GM/50ML 2 GM/50 ML BAG IV ONE (00:43)
[2019-04-22 00:46] LABS: Basophils # (Auto) 0.1 K/mm3 (0.0-0.1); Basophils % (Auto) 1.3 % (0.0-1.8); Eosinophils % (Auto) 0.5 % (0.0-4.3); Hematocrit 30.6 % (30.3-42.9); Hemoglobin 9.9 gm/dl (10.1-14.3); Lymphocytes # (Auto) 1.9 K/mm3 (1.2-5.4); Lymphocytes % (Auto) 30.3 % (13.4-35.0); Mean Corpuscular HGB Conc 32 % (30-34); Mean Corpuscular Volume 82 fl (79-97); Monocytes # (Auto) 0.9 K/mm3 (0.0-0.8); Monocytes % (Auto) 13.7 % (0.0-7.3); Platelet Count 461 K/mm3 (140-440); Red Blood Count 3.75 M/mm3 (3.65-5.03); Red Cell Distribution Width 16.5 % (13.2-15.2)
--- NOTE | 2019-04-22 00:52 | XRay Report ---
CHEST 1 VIEW INDICATION / CLINICAL INFORMATION: SOB. Dyspnea COMPARISON: None available. FINDINGS: SUPPORT DEVICES: None. HEART / MEDIASTINUM: No significant abnormality. LUNGS / PLEURA: No significant pulmonary or pleural abnormality. No pneumothorax. ADDITIONAL FINDINGS: No significant additional findings. IMPRESSION: 1. No acute findings. Signer Name: Selvin Nguyen MD Signed: 04/22/2019 12:48 AM Workstation Name: [id number] [email or web address]
[2019-04-22] MEDS ORDERED: ZOFRAN IV ONE (00:57)
[2019-04-22] MEDS ORDERED: MORPHINE IV ONE (00:57)
[2019-04-22 01:11] LABS: Alanine Aminotransferase 28 units/L (7-56); Albumin 4.2 g/dL (3.9-5); BUN/Creatinine Ratio 15; Blood Urea Nitrogen 12 mg/dL (7-17); Calcium 9.4 mg/dL (8.4-10.2); Hemolysis Index 6
[2019-04-22] MEDS ORDERED: D50W (25GM) Syringe IV PRN (03:11)
[2019-04-22] MEDS ORDERED: TYLENOL PO PRN (03:15)
[2019-04-22] MEDS ORDERED: ZOFRAN IV PRN (03:16)
[2019-04-22] MEDS ORDERED: ROBITUSSIN PO PRN (03:16)
[2019-04-22 04:13] LABS: ABG Base Excess -2.3 mmol/L (-2.0-3.0); ABG HCO3 23.3 mmol/L (20.0-26.0); ABG Methemoglobin 0.5 % (0.0-1.5); ABG Oxygen Saturation 99.2 % (95.0-99.0); ABG PH 7.351 pH Units (7.350-7.450); ABG PO2 203.6 mm Hg (80.0-90.0)
[2019-04-22] MEDS: HEPARIN SUB-Q SCH ×3 (05:53→21:52)
[2019-04-22] MEDS: ATARAX PO PRN (05:53)
[2019-04-22] MEDS: SOLU-Medrol IV SCH ×3 (05:54→21:52)
--- NOTE | 2019-04-22 06:38 | History and Physical Report ---
CHIEF COMPLAINT: Shortness of breath. Other complaints include cough. HISTORY OF PRESENTING ILLNESS: The patient is a 39-year-old female who has been having shortness of breath that started at home and has been progressively going worse in the last 2-3 days. Symptoms are associated with cough productive of yellow sputum. There is no history of fever or chills and no history of nausea and vomiting; however, the patient has pleuritic chest pain. There is no history of dizziness and the patient said that she has been using her albuterol inhaler and nebulizer multiple times daily without relief. PAST MEDICAL HISTORY: Pertinent for hypertension, coronary artery disease, status post myocardial infarction. Also, the patient has past medical history of congestive heart failure, diabetes mellitus, bipolar disorder, depression, schizoaffective disorder. Also, there is past medical history of COPD, on home O2 and the patient has past history of asthma and hypercholesterolemia. PAST SURGICAL HISTORY: Pertinent for appendectomy, x 2 and dilatation and curettage (D and C). FAMILY HISTORY: Noncontributory. SOCIAL HISTORY: The patient smokes cigarettes daily, does not drink alcohol and does not use illicit drugs. MEDICATIONS: The patient is on albuterol, ProAir inhaler 90 mcg inhalation every 4 hours. The patient is also on Lipitor 40 mg by mouth at bedtime and Lasix 20 mg by mouth daily. The patient is also on Neurontin 600 mg by mouth twice daily and lispro insulin before meals and at bedtime per protocol. The patient is on metformin 500 mg by mouth twice daily and Lopressor 50 mg by mouth daily. The patient is also on Zoloft 100 mg by mouth daily and Atarax 50 mg by mouth every 6 hours as needed for itching. The patient is also on trazodone 100 mg at bedtime and Valtrex 500 mg daily as well as baby aspirin 81 mg daily. The patient is also on CoQ10, 100 mg by mouth daily and divalproex extended release 1500 mg at bedtime. The patient is on fish oil 1000 mg daily, flaxseed oil 1000 mg daily as well as Garlique 500 mg by mouth daily and Geodon 120 mg by mouth daily. The patient is on Levemir insulin 15 units subcutaneous b.i.d. and melatonin 5 mg by mouth at bedtime as well as omega-3 fatty acid 1040 mg by mouth daily. Also, the patient is on potassium chloride 10 mEq by mouth daily and Victoza 1 vial subcutaneous daily as well as vitamin B12 100 mcg by mouth daily. The patient is also on vitamin C 500 mg by mouth daily and vitamin D3 25 mcg by mouth daily as well as Macrobid 100 mg every 12 hours and Zofran under the tongue 4 mg every 8 hours as needed for nausea and vomiting. ALLERGIES: THE PATIENT IS ALLERGIC TO PENICILLIN DRUGS AND SULFA DRUGS. REVIEW OF SYSTEMS: CONSTITUTIONAL: There is no fever, no chills, no diaphoresis. HEENT: There is no headache or sore throat. CARDIOVASCULAR SYSTEM: There is pleuritic chest pain, but no orthopnea. RESPIRATORY SYSTEM: There is shortness of breath and cough. There is also wheezing. GASTROINTESTINAL SYSTEM: There is no nausea, no vomiting, no abdominal pain, diarrhea or constipation. NEUROLOGICAL SYSTEM: There is no numbness, no dizziness, no altered mental status. MUSCULOSKELETAL SYSTEM: There is no joint pain or swelling. DERMATOLOGICAL SYSTEM: There is no skin rash or itching. GENITOURINARY SYSTEM: There is no dysuria, hematuria, or flank pain. Rest of system review is normal. PHYSICAL EXAMINATION: GENERAL: At the time of exam, the patient was found to be alert, oriented x 3 and in mild to moderate distress due to shortness of breath. VITAL SIGNS: Show normal temperature with pulse of 107, respirations 24, blood pressure 115/76, O2 sat of 100% on room air. HEENT: Showed pupils to be equal, round, reactive to light and accommodating. Extraocular muscles are intact. NECK: Supple with no JVD or carotid bruit. CARDIOVASCULAR SYSTEM: Showed normal first and second heart sounds with no gallops or murmurs. RESPIRATORY SYSTEM: Showed reduced air entry to both lungs with respiratory wheezing, but no use of accessory respiratory muscles. GASTROINTESTINAL SYSTEM: Showed abdomen to be full, soft, nontender with no organomegaly or rigidity. NEUROLOGIC: Shows no focal deficit. MUSCULOSKELETAL SYSTEM: Showed no joint swelling or tenderness. DERMATOLOGICAL SYSTEM: Showed no skin rash. GENITOURINARY SYSTEM: Showing no costovertebral angle tenderness. PERTINENT LABORATORY AND IMAGING STUDIES: The patient had chest x-ray done that shows no acute findings. The patient's lab result shows CBC with normal white count, low hemoglobin of 9.9 and normal hematocrit and normal MCV with CBC differential showing elevated monocyte count of 13.7. The patient's arterial blood gas showed normal pH of 7.35 with normal pCO2 of 43 and high pO2 of 203 with normal O2 saturation level of 99.2 and this was done on FiO2 of 40 and the patient's chemistry showed slightly low sodium level of 134 with low chloride of 97 and low CO2 of 21 with rest of chemistry being unremarkable. DIAGNOSES: 1. Chronic obstructive pulmonary disease exacerbation. 2. Anemia. PLAN OF CARE: 1. The patient will be admitted to telemetry as inpatient. 2. The patient will continue BiPAP treatment started in the Emergency Room. 3. The patient will have serial cardiac enzyme involving troponin, total CK, and CK-MB checked every 6 hours x 2 more levels. 4. The patient will be on IV Solu-Medrol 60 mg q. 8 hours. 5. The patient will be on p.r.n. medications like Tylenol 650 mg by mouth every 4 hours for fever and headache and IV Zofran 4 mg every 8 hours for nausea and vomiting. 6. The patient will be on IV Levaquin 750 mg daily as empiric treatment for bronchitis and chronic obstructive pulmonary disease exacerbation. 7. The patient will be on albuterol nebulizer q.i.d. 8. The patient will be on Robitussin 200 mg by mouth every 4 hours as needed for cough. 9. The patient will continue her home medication as listed in the medication reconciliation section. 10. The patient will be on Accu-Chek before meals and at bedtime, followed by low-dose sliding scale using regular insulin coverage. 11. The patient's diet will be consistent carbohydrate, low sodium diet. JOB# [id number] OCN/NTS
[2019-04-22] MEDS: HumuLIN R SUB-Q SCH ×3 (07:30→17:24)
[2019-04-22 07:57] LABS: Creatine Kinase MB 1.6 ng/mL (0.0-4.0)
[2019-04-22] MEDS: METOPROLOL PO SCH ×2 (08:00→17:25)
[2019-04-22] MEDS: LANTUS SUB-Q SCH ×2 (08:00→18:28)
[2019-04-22] MEDS ORDERED: DUONEB *Not for PRN Use IH SCH (08:00)
[2019-04-22] MEDS ORDERED: PROVENTIL IH PRN (09:02)
[2019-04-22] MEDS: ZOLOFT PO SCH (09:35)
[2019-04-22] MEDS: LEVAQUIN 750MG/150ML 750 MG/150 ML BAG IV SCH (09:35)
[2019-04-22] MEDS: K-DUR PO SCH (09:35)
[2019-04-22] MEDS: BABY ASPIRIN PO SCH (09:35)
[2019-04-22] MEDS: GABAPENTIN PO SCH ×2 (09:36→21:51)
[2019-04-22] MEDS: LASIX PO SCH (09:36)
[2019-04-22] MEDS: VITAMIN C PO SCH (09:36)
[2019-04-22] MEDS ORDERED: MACROBID PO SCH (10:00)
[2019-04-22] MEDS ORDERED: [UNRECOGNIZED DRUG - OTHER] SQ SCH (10:00)
[2019-04-22] MEDS ORDERED: LEVEMIR 15 UNIT SQ SCH (10:00)
[2019-04-22] MEDS ORDERED: VITAMIN D3 COMPLETE PO SCH (10:00)
[2019-04-22] MEDS ORDERED: VICTOZA SQ SCH (10:00)
[2019-04-22] MEDS: GEODON PO SCH (10:07)
[2019-04-22] MEDS: VITAMIN B-12 PO SCH (10:07)
[2019-04-22] MEDS: VALTREX PO SCH (10:07)
[2019-04-22] MEDS: VITAMIN D3 PO SCH (12:26)
--- NOTE | 2019-04-22 13:04 | Progress Note ---
Assessment and Plan Assessment and plan: 38F who pw sob, wheezing and cough Diagnosis Chest pain on exertion COPD exacerbation acute on chronic hypoxic respiratory failure SIRS, no evidence of infection htn urgency DM type 2 with persistent hyperglycemia Plan Cardiology consult, n.p.o. after midnight as patient may benefit from stress test Cont steriods, nebs and RT rx, cont oxygen supplement -Continue supplemental oxygen. Patient follows with Dr. Capps in [facility]. States that she was put on nocturnal oxygen., After a sleep study. She states that tank has not been delivered at her home units. optimize meds for htn and DM Case management consult to provide home oxygen. History Interval history: Continues to complain of chest pain on exertion. States that she has chest pain even walking to the bedside commode. Also complaining of shortness of breath wheezing, nonproductive cough No vomiting No focal weakness Hospitalist Physical - Physical exam Narrative exam: General.: no distress, nontoxic HEENT: Moist mucous membranes, extraocular muscles intact, no lymphadenopathy Neck: supple Cardiac: S1-S2 heard Lungs: Decreased air entry, occasional expiratory wheezing Abdomen: soft , nontender, nondistended, bowel sounds positive Extremities: no edema clubbing or cyanosis Skin: no rash or lesions Neurologic: no gross focal deficits Psych: calm, and cooperative - Constitutional Vitals: Temp Pulse Resp BP Pulse Ox 98.7 F 92 H 18 117/67 99 04/22/19 11:41 04/22/19 11:41 04/22/19 11:41 04/22/19 11:41 04/22/19 11:41 Results - Labs CBC & Chem 7: 04/22/19 00:30 04/22/19 00:30 Labs: Laboratory Last Values WBC 6.3 K/mm3 (4.5-11.0) 04/22/19 00:30 RBC 3.75 M/mm3 (3.65-5.03) 04/22/19 00:30 Hgb 9.9 gm/dl (10.1-14.3) L 04/22/19 00:30 Hct 30.6 % (30.3-42.9) 04/22/19 00:30 MCV 82 fl (79-97) 04/22/19 00:30 MCH 26 pg (28-32) L 04/22/19 00:30 MCHC 32 % (30-34) 04/22/19 00:30 RDW 16.5 % (13.2-15.2) H 04/22/19 00:30 Plt Count 461 K/mm3 (140-440) H 04/22/19 00:30 Lymph % (Auto) 30.3 % (13.4-35.0) 04/22/19 00:30 [place] % (Auto) 13.7 % (0.0-7.3) H 04/22/19 00:30 Eos % (Auto) 0.5 % (0.0-4.3) 04/22/19 00:30 Baso % (Auto) 1.3 % (0.0-1.8) 04/22/19 00:30 Lymph # 1.9 K/mm3 (1.2-5.4) 04/22/19 00:30 [place] # 0.9 K/mm3 (0.0-0.8) H 04/22/19 00:30 Eos # 0.0 K/mm3 (0.0-0.4) 04/22/19 00:30 Baso # 0.1 K/mm3 (0.0-0.1) 04/22/19 00:30 Seg Neutrophils % 54.2 % (40.0-70.0) 04/22/19 00:30 Seg Neutrophils # 3.4 K/mm3 (1.8-7.7) 04/22/19 00:30 ABG pH 7.351 pH Units (7.350-7.450) 04/22/19 Unknown ABG pCO2 43.0 mm Hg 04/22/19 Unknown ABG pO2 203.6 mm Hg (80.0-90.0) H 04/22/19 Unknown ABG HCO3 23.3 mmol/L (20.0-26.0) 04/22/19 Unknown ABG O2 Saturation 99.2 % (95.0-99.0) H 04/22/19 Unknown ABG O2 Content 13.9 (0.0-44) 04/22/19 Unknown ABG Base Excess -2.3 mmol/L (-2.0-3.0) L 04/22/19 Unknown ABG Hemoglobin 9.8 gm/dl (12.0-16.0) L 04/22/19 Unknown ABG Carboxyhemoglobin 1.5 % (0.0-5.0) 04/22/19 Unknown ABG Methemoglobin 0.5 % (0.0-1.5) 04/22/19 Unknown Oxyhemoglobin 97.3 % (95.0-99.0) 04/22/19 Unknown FiO2 40 % 04/22/19 Unknown Sodium 134 mmol/L (137-145) L 04/22/19 00:30 Potassium 4.1 mmol/L (3.6-5.0) 04/22/19 00:30 Chloride 97.0 mmol/L (98-107) L 04/22/19 00:30 Carbon Dioxide 21 mmol/L (22-30) L 04/22/19 00:30 Anion Gap 20 mmol/L 04/22/19 00:30 BUN 12 mg/dL (7-17) 04/22/19 00:30 Creatinine 0.8 mg/dL (0.7-1.2) 04/22/19 00:30 Estimated GFR > 60 ml/min 04/22/19 00:30 BUN/Creatinine Ratio 15 % 04/22/19 00:30 Glucose 114 mg/dL (65-100) H 04/22/19 00:30 POC Glucose 268 (70-105) H 04/22/19 11:51 Calcium 9.4 mg/dL (8.4-10.2) 04/22/19 00:30 Total Bilirubin < 0.20 mg/dL (0.1-1.2) 04/22/19 00:30 AST 29 units/L (5-40) 04/22/19 00:30 ALT 28 units/L (7-56) 04/22/19 00:30 Alkaline Phosphatase 68 units/L (35-129) 04/22/19 00:30 Total Creatine Kinase 304 units/L (30-135) H 04/22/19 07:17 CK-MB (CK-2) 1.6 ng/mL (0.0-4.0) 04/22/19 07:17 CK-MB (CK-2) Rel Index 0.5 (0-4) 04/22/19 07:17 Troponin T < 0.010 ng/mL (0.00-0.029) 04/22/19 07:17 NT-Pro-B Natriuret Pep 259.8 pg/mL (0-450) 04/22/19 00:30 Total Protein 7.6 g/dL (6.3-8.2) 04/22/19 00:30 Albumin 4.2 g/dL (3.9-5) 04/22/19 00:30 Albumin/Globulin Ratio 1.2 % 04/22/19 00:30 Active Medications - Current Medications Current Medications: Generic Name Dose Route Start Last Admin Trade Name Freq PRN Reason Stop Dose Admin Acetaminophen 650 mg 04/22/19 03:15 Tylenol PO Q4H PRN Fever >101 Albuterol 2.5 mg 04/22/19 09:02 Proventil IH Q4HRT PRN Shortness Of Breath Albuterol/Ipratropium 1 ampul 04/22/19 14:00 Duoneb *Not For Prn Use* Q6HRT [facility] Arformoterol Tartrate 15 mcg 04/22/19 20:00 Brovana Nebu Q12HRT [facility] Ascorbic Acid 500 mg 04/22/19 10:00 04/22/19 09:36 Vitamin C PO 500 mg DAILY [facility] Administration Aspirin 81 mg 04/22/19 10:00 04/22/19 09:35 Baby Aspirin PO 81 mg DAILY [facility] Administration Atorvastatin Calcium 40 mg 04/22/19 22:00 Lipitor PO QHS [facility] Budesonide 0.5 mg 04/22/19 20:00 Pulmicort Q12HRT [facility] Cholecalciferol 1,000 unit 04/22/19 13:00 04/22/19 12:26 Vitamin D3 PO 1,000 unit QDAY [facility] Administration Cyanocobalamin 100 mcg 04/22/19 10:00 04/22/19 10:07 Vitamin B-12 PO 100 mcg DAILY [facility] Administration Dextrose 0 ml 04/22/19 03:11 D50w (25gm) Syringe IV Q30MIN PRN Hypoglycemia Divalproex Sodium 1,500 mg 04/22/19 22:00 Depakote Er PO HS [facility] Furosemide 20 mg 04/22/19 10:00 04/22/19 09:36 Lasix PO 20 mg QDAY [facility] Administration Gabapentin 600 mg 04/22/19 10:00 04/22/19 09:36 Neurontin PO 600 mg BID [facility] Administration Guaifenesin 200 mg 04/22/19 03:16 Robitussin PO Q4H PRN Cough Heparin Sodium (Porcine) 5,000 unit 04/22/19 03:15 04/22/19 09:39 Heparin SUB-Q 5,000 unit Q12HR [facility] Administration Hydroxyzine HCl 50 mg 04/22/19 03:22 04/22/19 05:53 Atarax PO 50 mg Q6H PRN Administration Itching Levofloxacin/Dextrose 750 mg in 150 mls @ 100 mls/hr 04/22/19 10:00 04/22/19 09:35 Levaquin 750mg/150ml IV 100 mls/hr Q24HR [facility] Administration Protocol Insulin Glargine 15 units 04/22/19 08:00 04/22/19 08:00 Lantus SUB-Q 15 units BIDDIAB [facility] Administration Insulin Human Regular 0 units 04/22/19 07:30 04/22/19 12:21 Humulin R SUB-Q 3 units AC [facility] Administration Protocol Insulin Human Regular 0 units 04/22/19 22:00 Humulin R SUB-Q QHS [facility] Protocol Melatonin 5 mg 04/22/19 22:00 Melatonin PO QHS [facility] Methylprednisolone Sodium Succinate 60 mg 04/22/19 06:00 04/22/19 05:54 Solu-Medrol IV 60 mg Q8HR [facility] Administration Metoprolol Tartrate 50 mg 04/22/19 08:00 04/22/19 08:00 Lopressor PO 50 mg BID@0800,1700 [facility] Administration Miscellaneous Medication 1 vial 04/22/19 10:00 Victoza 2-Jose SQ DAILY [facility] Ondansetron HCl 4 mg 04/22/19 03:16 Zofran IV Q8H PRN Nausea And Vomiting Potassium Chloride 10 meq 04/22/19 10:00 04/22/19 09:35 K-Dur PO 10 meq DAILY [facility] Administration Sertraline HCl 100 mg 04/22/19 10:00 04/22/19 09:35 Zoloft PO 100 mg QDAY [facility] Administration Trazodone HCl 100 mg 04/22/19 22:00 Desyrel PO QHS [facility] Valacyclovir HCl 500 mg 04/22/19 10:00 04/22/19 10:07 Valtrex PO 500 mg DAILY [facility] Administration Ziprasidone 120 mg 04/22/19 10:00 04/22/19 10:07 Geodon PO 120 mg DAILY [facility] Administration
[2019-04-22 13:45] LABS: Creatine Kinase MB 1.8 ng/mL (0.0-4.0)
--- NOTE | 2019-04-22 13:47 | Consultation ---
History of Present Illness Consult date: 04/22/19 Requesting physician: RENETTA OLIVEIRA Reason for consult: COPD History of present illness: PULMONARY/CCM CONSULT NOTE (Full dictation # [id number]) Please see dictated notes for full details Medications and Allergies Allergies Allergy/AdvReac Type Severity Reaction Status Date / Time Penicillins Allergy Anaphylaxis Verified 01/29/19 10:17 Sulfa (Sulfonamide AdvReac Anaphylaxis Verified 01/29/19 10:17 Antibiotics) Home Medications Medication Instructions Recorded Confirmed Last Taken Type AtorvaSTATin [Lipitor] 40 mg PO QHS 01/29/19 04/22/19 1 Day Ago History ~02/12/19 Furosemide [Lasix TAB] 20 mg PO QDAY 01/29/19 04/22/19 02/13/19 History Gabapentin [Neurontin] 600 mg PO BID 01/29/19 04/22/19 02/13/19 History Lispro Insulin [HumaLOG] 1 dose SQ ACHS 01/29/19 04/22/19 02/13/19 History Metformin HCl [metFORMIN ER 500 mg PO BID 01/29/19 04/22/19 02/13/19 History Gastric] Metoprolol [Lopressor TAB] 50 mg PO BID 01/29/19 04/22/19 02/13/19 09:00 History Sertraline [Zoloft] 100 mg PO QDAY 01/29/19 04/22/19 02/13/19 09:00 History hydrOXYzine HCL [Atarax] 50 mg PO Q6HR PRN 01/29/19 04/22/19 02/13/19 History traZODone [Desyrel] 100 mg PO QHS 01/29/19 04/22/19 1 Day Ago History ~02/12/19 valACYclovir [Valtrex] 500 mg PO DAILY 01/29/19 04/22/19 02/13/19 History Aspirin BABY CHEW TAB 81 mg PO DAILY 02/13/19 04/22/19 02/13/19 09:00 History Co Q-10 100 mg PO DAILY 02/13/19 04/22/19 02/13/19 History Divalproex ER 1,500 mg PO HS 02/13/19 04/22/19 1 Day Ago History ~02/12/19 Fish Oil 1,000 mg PO DAILY 02/13/19 04/22/1919 History Flax Seed Oil 1,000 mg PO DAILY 02/13/19 04/22/19 02/13/19 History Garlic 500 mg PO DAILY 02/13/19 04/22/19 02/13/19 History Geodon 120 mg PO DAILY 02/13/19 04/22/19 02/13/19 History Levemir VIAL 15 unit SQ BID 02/13/19 04/22/19 02/13/19 History Melatonin 5 mg PO QHS 02/13/19 04/22/19 1 Day Ago History ~02/12/19 Leon-3 1,040 mg PO DAILY 02/13/19 04/22/19 02/13/19 History Potassium 10 meq PO DAILY 02/13/19 04/22/19 02/13/19 History Victoza 2-Jose 1 vial SQ DAILY 02/13/19 04/22/19 02/13/19 History Vitamin B-12 100 mcg PO DAILY 02/13/19 04/22/19 02/13/19 History Vitamin C 250 mg Tablet Chew 500 mg PO DAILY 02/13/19 04/22/19 02/13/19 History Vitamin D3 Complete Caplet 25 mcg PO DAILY 02/13/19 04/22/19 02/13/19 History Apixaban [Eliquis] 5 mg PO BID 04/22/19 04/22/19 Unknown History Albuterol Sulfate [Proair 2 puff IH Q4H PRN #1 04/23/19 Unknown Rx Respiclick] Nicotine [Habitrol] 7 mg TD DAILY #30 patch 04/23/19 Unknown Rx Prednisone [predniSONE 5 mg (6-Day 5 mg PO .TAPER #1 tab.ds.pk 04/23/19 Unknown Rx Pack, 21 Tabs)] Active Meds: Active Medications Acetaminophen (Tylenol) 650 mg PO Q4H PRN PRN Reason: Fever >101 Albuterol (Proventil) 2.5 mg IH Q4HRT PRN PRN Reason: Shortness Of Breath Albuterol/Ipratropium (Duoneb *Not For Prn Use*) 1 ampul IH Q6HRT [facility] Arformoterol Tartrate (Brovana Nebu) 15 mcg IH Q12HRT [facility] Ascorbic Acid (Vitamin C) 500 mg PO DAILY [facility] Last Admin: 04/22/19 09:36 Dose: 500 mg Documented by: Aspirin (Baby Aspirin) 81 mg PO DAILY [facility] Last Admin: 04/22/19 09:35 Dose: 81 mg Documented by: Atorvastatin Calcium (Lipitor) 40 mg PO QHS [facility] Budesonide (Pulmicort) 0.5 mg IH Q12HRT [facility] Cholecalciferol (Vitamin D3) 1,000 unit PO QDAY [facility] Last Admin: 04/22/19 12:26 Dose: 1,000 unit Documented by: Cyanocobalamin (Vitamin B-12) 100 mcg PO DAILY [facility] Last Admin: 04/22/19 10:07 Dose: 100 mcg Documented by: Dextrose (D50w (25gm) Syringe) 0 ml IV Q30MIN PRN PRN Reason: Hypoglycemia Divalproex Sodium (Depakote Er) 1,500 mg PO HS [facility] Furosemide (Lasix) 20 mg PO QDAY [facility] Last Admin: 04/22/19 09:36 Dose: 20 mg Documented by: Gabapentin (Neurontin) 600 mg PO BID [facility] Last Admin: 04/22/19 09:36 Dose: 600 mg Documented by: Guaifenesin (Robitussin) 200 mg PO Q4H PRN PRN Reason: Cough Heparin Sodium (Porcine) (Heparin) 5,000 unit SUB-Q Q12HR [facility] Last Admin: 04/22/19 09:39 Dose: 5,000 unit Documented by: Hydroxyzine HCl (Atarax) 50 mg PO Q6H PRN PRN Reason: Itching Last Admin: 04/22/19 05:53 Dose: 50 mg Documented by: Levofloxacin/Dextrose (Levaquin 750mg/150ml) 750 mg in 150 mls @ 100 mls/hr IV Q24HR [facility]; Protocol Last Admin: 04/22/19 09:35 Dose: 100 mls/hr Documented by: Insulin Glargine (Lantus) 15 units SUB-Q BIDDIAB [facility] Last Admin: 04/22/19 08:00 Dose: 15 units Documented by: Insulin Human Regular (Humulin R) 0 units SUB-Q AC [facility]; Protocol Last Admin: 04/22/19 12:21 Dose: 3 units Documented by: Insulin Human Regular (Humulin R) 0 units SUB-Q QHS [facility]; Protocol Melatonin (Melatonin) 5 mg PO QHS [facility] Methylprednisolone Sodium Succinate (Solu-Medrol) 60 mg IV Q8HR [facility] Last Admin: 04/22/19 13:21 Dose: 60 mg Documented by: Metoprolol Tartrate (Lopressor) 50 mg PO BID@0800,1700 [facility] Last Admin: 04/22/19 08:00 Dose: 50 mg Documented by: Miscellaneous Medication (Victoza 2-Jose) 1 vial SQ DAILY [facility] Ondansetron HCl (Zofran) 4 mg IV Q8H PRN PRN Reason: Nausea And Vomiting Potassium Chloride (K-Dur) 10 meq PO DAILY [facility] Last Admin: 04/22/19 09:35 Dose: 10 meq Documented by: Sertraline HCl (Zoloft) 100 mg PO QDAY [facility] Last Admin: 04/22/19 09:35 Dose: 100 mg Documented by: Trazodone HCl (Desyrel) 100 mg PO QHS [facility] Valacyclovir HCl (Valtrex) 500 mg PO DAILY [facility] Last Admin: 04/22/19 10:07 Dose: 500 mg Documented by: Ziprasidone (Geodon) 120 mg PO DAILY [facility] Last Admin: 04/22/19 10:07 Dose: 120 mg Documented by: Physical Examination Vital signs: Vital Signs Pulse Ox 93 04/22/19 00:26 Results - Laboratory Findings CBC and BMP: 04/22/19 00:30 04/22/19 00:30 ABG ABG pH 7.351 pH Units (7.350-7.450) 04/22/19 Unknown ABG pCO2 43.0 mm Hg 04/22/19 Unknown ABG pO2 203.6 mm Hg (80.0-90.0) H 04/22/19 Unknown ABG O2 Saturation 99.2 % (95.0-99.0) H 04/22/19 Unknown Abnormal lab findings: Abnormal Labs 04/22/19 04/22/19 04/22/19 00:30 00:30 07:17 Hgb 9.9 L MCH 26 L RDW 16.5 H Plt Count 461 H [place] % (Auto) 13.7 H [place] # 0.9 H ABG pO2 ABG O2 Saturation ABG Base Excess ABG Hemoglobin Sodium 134 L Chloride 97.0 L Carbon Dioxide 21 L Glucose 114 H POC Glucose Total Creatine Kinase 304 H 04/22/19 04/22/19 04/22/19 08:46 11:51 Unknown Hgb MCH RDW Plt Count [place] % (Auto) [place] # ABG pO2 203.6 H ABG O2 Saturation 99.2 H ABG Base Excess -2.3 L ABG Hemoglobin 9.8 L Sodium Chloride Carbon Dioxide Glucose POC Glucose 239 H 268 H Total Creatine Kinase
[2019-04-22] MEDS: DUONEB *Not for PRN Use IH SCH ×2 (14:29→20:17)
[2019-04-22] MEDS: PULMICORT IH SCH (20:17)
[2019-04-22] MEDS: BROVANA NEBU IH SCH (20:17)
[2019-04-22] MEDS ORDERED: HumuLIN R SUB-Q SCH (22:00)
[2019-04-22] MEDS ORDERED: DESYREL PO SCH (22:00)
[2019-04-22] MEDS ORDERED: MELATONIN PO SCH (22:00)
[2019-04-23] MEDS: DUONEB *Not for PRN Use IH SCH ×3 (02:10→15:00)
[2019-04-23] MEDS: ATARAX PO PRN (02:50)
[2019-04-23] MEDS: SOLU-Medrol IV SCH ×2 (06:01→14:11)
[2019-04-23] MEDS: HumuLIN R SUB-Q SCH ×3 (07:30→18:13)
[2019-04-23] MEDS: BROVANA NEBU IH SCH (07:49)
[2019-04-23] MEDS: PULMICORT IH SCH (07:50)
[2019-04-23] MEDS: METOPROLOL PO SCH ×2 (08:00→17:13)
--- NOTE | 2019-04-23 11:04 | Progress Note ---
Assessment and Plan Assessment and plan: 38F who pw sob, wheezing and cough Diagnosis Chest pain on exertion COPD exacerbation acute on chronic hypoxic respiratory failure SIRS, no evidence of infection htn urgency DM type 2 with persistent hyperglycemia Tobacco abuse/dependence Plan Cardiology consult, n.p.o. after midnight as patient may benefit from stress test Cont steriods, nebs and RT rx, cont oxygen supplement -Continue supplemental oxygen. Patient follows with Dr. Capps in [facility]. States that she was put on nocturnal oxygen., After a sleep study. She states that tank has not been delivered at her home . optimize meds for htn and DM Tobacco abuse/dependence Smoking cessation counseling performed for 10 minutes, nicotine patches when necessary Case management consult to provide home oxygen. History Interval history: Continues to complain of chest pain on exertion. States that she has chest pain even walking to the bedside commode. Also complaining of shortness of breath wheezing, nonproductive cough No vomiting No focal weakness Hospitalist Physical - Physical exam Narrative exam: General.: no distress, nontoxic HEENT: Moist mucous membranes, extraocular muscles intact, no lymphadenopathy Neck: supple Cardiac: S1-S2 heard Lungs: Decreased air entry, occasional expiratory wheezing Abdomen: soft , nontender, nondistended, bowel sounds positive Extremities: no edema clubbing or cyanosis Skin: no rash or lesions Neurologic: no gross focal deficits Psych: calm, and cooperative - Constitutional Vitals: Temp Pulse Resp BP Pulse Ox 98.1 F 92 H 18 93/46 97 04/23/19 08:22 04/23/19 10:00 04/23/19 10:00 04/23/19 08:22 04/23/19 08:22 Results - Labs CBC & Chem 7: 04/22/19 00:30 04/22/19 00:30 Labs: Laboratory Last Values WBC 6.3 K/mm3 (4.5-11.0) 04/22/19 00:30 RBC 3.75 M/mm3 (3.65-5.03) 04/22/19 00:30 Hgb 9.9 gm/dl (10.1-14.3) L 04/22/19 00:30 Hct 30.6 % (30.3-42.9) 04/22/19 00:30 MCV 82 fl (79-97) 04/22/19 00:30 MCH 26 pg (28-32) L 04/22/19 00:30 MCHC 32 % (30-34) 04/22/19 00:30 RDW 16.5 % (13.2-15.2) H 04/22/19 00:30 Plt Count 461 K/mm3 (140-440) H 04/22/19 00:30 Lymph % (Auto) 30.3 % (13.4-35.0) 04/22/19 00:30 Saunders % (Auto) 13.7 % (0.0-7.3) H 04/22/19 00:30 Eos % (Auto) 0.5 % (0.0-4.3) 04/22/19 00:30 Baso % (Auto) 1.3 % (0.0-1.8) 04/22/19 00:30 Lymph # 1.9 K/mm3 (1.2-5.4) 04/22/19 00:30 Saunders # 0.9 K/mm3 (0.0-0.8) H 04/22/19 00:30 Eos # 0.0 K/mm3 (0.0-0.4) 04/22/19 00:30 Baso # 0.1 K/mm3 (0.0-0.1) 04/22/19 00:30 Seg Neutrophils % 54.2 % (40.0-70.0) 04/22/19 00:30 Seg Neutrophils # 3.4 K/mm3 (1.8-7.7) 04/22/19 00:30 ABG pH 7.351 pH Units (7.350-7.450) 04/22/19 Unknown ABG pCO2 43.0 mm Hg 04/22/19 Unknown ABG pO2 203.6 mm Hg (80.0-90.0) H 04/22/19 Unknown ABG HCO3 23.3 mmol/L (20.0-26.0) 04/22/19 Unknown ABG O2 Saturation 99.2 % (95.0-99.0) H 04/22/19 Unknown ABG O2 Content 13.9 (0.0-44) 04/22/19 Unknown ABG Base Excess -2.3 mmol/L (-2.0-3.0) L 04/22/19 Unknown ABG Hemoglobin 9.8 gm/dl (12.0-16.0) L 04/22/19 Unknown ABG Carboxyhemoglobin 1.5 % (0.0-5.0) 04/22/19 Unknown ABG Methemoglobin 0.5 % (0.0-1.5) 04/22/19 Unknown Oxyhemoglobin 97.3 % (95.0-99.0) 04/22/19 Unknown FiO2 40 % 04/22/19 Unknown Sodium 134 mmol/L (137-145) L 04/22/19 00:30 Potassium 4.1 mmol/L (3.6-5.0) 04/22/19 00:30 Chloride 97.0 mmol/L (98-107) L 04/22/19 00:30 Carbon Dioxide 21 mmol/L (22-30) L 04/22/19 00:30 Anion Gap 20 mmol/L 04/22/19 00:30 BUN 12 mg/dL (7-17) 04/22/19 00:30 Creatinine 0.8 mg/dL (0.7-1.2) 04/22/19 00:30 Estimated GFR > 60 ml/min 04/22/19 00:30 BUN/Creatinine Ratio 15 % 04/22/19 00:30 Glucose 114 mg/dL (65-100) H 04/22/19 00:30 POC Glucose 165 (70-105) H 04/23/19 08:30 Calcium 9.4 mg/dL (8.4-10.2) 04/22/19 00:30 Total Bilirubin < 0.20 mg/dL (0.1-1.2) 04/22/19 00:30 AST 29 units/L (5-40) 04/22/19 00:30 ALT 28 units/L (7-56) 04/22/19 00:30 Alkaline Phosphatase 68 units/L (35-129) 04/22/19 00:30 Total Creatine Kinase 304 units/L (30-135) H 04/22/19 12:26 CK-MB (CK-2) 1.8 ng/mL (0.0-4.0) 04/22/19 12:26 CK-MB (CK-2) Rel Index 0.5 (0-4) 04/22/19 12:26 Troponin T < 0.010 ng/mL (0.00-0.029) 04/22/19 12:26 NT-Pro-B Natriuret Pep 259.8 pg/mL (0-450) 04/22/19 00:30 Total Protein 7.6 g/dL (6.3-8.2) 04/22/19 00:30 Albumin 4.2 g/dL (3.9-5) 04/22/19 00:30 Albumin/Globulin Ratio 1.2 % 04/22/19 00:30 Active Medications - Current Medications Current Medications: Generic Name Dose Route Start Last Admin Trade Name Freq PRN Reason Stop Dose Admin Acetaminophen 650 mg 04/22/19 03:15 Tylenol PO Q4H PRN Fever >101 Albuterol 2.5 mg 04/22/19 09:02 Proventil IH Q4HRT PRN Shortness Of Breath Albuterol/Ipratropium 1 ampul 04/22/19 14:00 04/23/19 07:50 Duoneb *Not For Prn Use* IH 1 ampul Q6HRT FIFI Administration Arformoterol Tartrate 15 mcg 04/22/19 20:00 04/23/19 07:49 Brovana Nebu IH 15 mcg Q12HRT FIFI Administration Ascorbic Acid 500 mg 04/22/19 10:00 04/22/19 09:36 Vitamin C PO 500 mg DAILY FIFI Administration Aspirin 81 mg 04/22/19 10:00 04/22/19 09:35 Baby Aspirin PO 81 mg DAILY FIFI Administration Atorvastatin Calcium 40 mg 04/22/19 22:00 04/22/19 21:52 Lipitor PO 40 mg QHS FIFI Administration Budesonide 0.5 mg 04/22/19 20:00 04/23/19 07:50 Pulmicort IH 0.5 mg Q12HRT FIFI Administration Cholecalciferol 1,000 unit 04/22/19 13:00 04/22/19 12:26 Vitamin D3 PO 1,000 unit QDAY FIFI Administration Cyanocobalamin 100 mcg 04/22/19 10:00 04/22/19 10:07 Vitamin B-12 PO 100 mcg DAILY FIFI Administration Dextrose 0 ml 04/22/19 03:11 D50w (25gm) Syringe IV Q30MIN PRN Hypoglycemia Divalproex Sodium 1,500 mg 04/22/19 22:00 04/22/19 21:51 Depakote Er PO 1,500 mg HS FIFI Administration Furosemide 20 mg 04/22/19 10:00 04/22/19 09:36 Lasix PO 20 mg QDAY FIFI Administration Gabapentin 600 mg 04/22/19 10:00 04/22/19 21:51 Neurontin PO 600 mg BID FIFI Administration Guaifenesin 200 mg 04/22/19 03:16 Robitussin PO Q4H PRN Cough Heparin Sodium (Porcine) 5,000 unit 04/22/19 03:15 04/22/19 21:52 Heparin SUB-Q 5,000 unit Q12HR FIFI Administration Hydroxyzine HCl 50 mg 04/22/19 03:22 04/23/19 02:50 Atarax PO 50 mg Q6H PRN Administration Itching Levofloxacin/Dextrose 750 mg in 150 mls @ 100 mls/hr 04/22/19 10:00 04/22/19 09:35 Levaquin 750mg/150ml IV 04/26/19 11:29 100 mls/hr Q24HR FIFI Administration Protocol Insulin Glargine 15 units 04/22/19 08:00 04/22/19 18:28 Lantus SUB-Q 15 units BIDDIAB FIFI Administration Insulin Human Regular 0 units 04/22/19 07:30 04/23/19 07:30 Humulin R SUB-Q Not Given [facility] Protocol Insulin Human Regular 0 units 04/22/19 22:00 04/22/19 21:53 Humulin R SUB-Q 2 units QHS FIFI Administration Protocol Melatonin 5 mg 04/22/19 22:00 04/22/19 21:51 Melatonin PO 5 mg QHS [facility] Administration Methylprednisolone Sodium Succinate 60 mg 04/22/19 06:00 04/23/19 06:01 Solu-Medrol IV 60 mg Q8HR FIFI Administration Metoprolol Tartrate 50 mg 04/22/19 08:00 04/23/19 08:00 Lopressor PO Not Given BID@0800,1700 [facility] Miscellaneous Medication 1 vial 04/22/19 10:00 Victoza 2-Jose SQ DAILY [facility] Ondansetron HCl 4 mg 04/22/19 03:16 Zofran IV Q8H PRN Nausea And Vomiting Potassium Chloride 10 meq 04/22/19 10:00 04/22/19 09:35 K-Dur PO 10 meq DAILY FIFI Administration Sertraline HCl 100 mg 04/22/19 10:00 04/22/19 09:35 Zoloft PO 100 mg QDAY FIFI Administration Trazodone HCl 100 mg 04/22/19 22:00 04/22/19 21:52 Desyrel PO 100 mg QHS FIFI Administration Valacyclovir HCl 500 mg 04/22/19 10:00 04/22/19 10:07 Valtrex PO 500 mg DAILY FIFI Administration Ziprasidone 120 mg 04/22/19 10:00 04/22/19 10:07 Geodon PO 120 mg DAILY FIFI Administration
[2019-04-23] MEDS: LEVAQUIN 750MG/150ML 750 MG/150 ML BAG IV SCH (12:08)
--- NOTE | 2019-04-23 12:13 | Discharge Summary ---
Providers - Providers Date of Admission: 04/22/19 03:23 Attending physician: RENETTA OLIVEIRA MD 04/22/19 11:00 Consult to Physician [CONS] Routine Comment: Consulting Provider: SCAR AMATO Physician Instructions: Reason For Exam: copd 04/22/19 12:58 Consult to Cardiology [CONS] Routine Consulting Provider: ORESTES CORNELIUS Reason For Exam: chest pain 04/22/19 13:04 Consult to Case Management [CONS] Routine Services Needed at Discharge: Home O2 Notified:: case management Primary care physician: JANKI OCONNOR Hospitalization Condition: Serious Hospital course: 38F who pw sob, wheezing and cough Diagnosis Chest pain on exertion COPD exacerbation acute on chronic hypoxic respiratory failure SIRS, no evidence of infection htn urgency DM type 2 with persistent hyperglycemia Tobacco abuse/dependence hx of PE dx a month ago Plan Cardiology consult appreciated, rx with steriods, nebs and RT rx, and oxygen supplement, being dc w steroid taper, states that PCP has already sent rx for breo and advair which are being delivered to her home today Patient follows with Dr. Capps in [facility]. States that she was put on nocturnal oxygen., After a sleep study. oxygen tank was delivered prior to dc optimize meds for htn and DM Tobacco abuse/dependence Smoking cessation counseling performed for 10 minutes, nicotine patches when necessary cont eliquis Disposition: DC-01 TO HOME OR SELFCARE Time spent for discharge: 33 mins Core Measure Documentation - Palliative Care Palliative Care/ Comfort Measures: Not Applicable - Core Measures Any of the following diagnoses?: none Exam - Constitutional Vitals: Temp Pulse Resp BP Pulse Ox 98.1 F 98 H 18 92/44 98 04/23/19 11:12 04/23/19 11:12 04/23/19 11:12 04/23/19 11:12 04/23/19 11:12 General appearance: Present: no acute distress, well-nourished - EENT Eyes: Present: PERRL ENT: hearing intact, clear oral mucosa - Neck Neck: Present: supple, normal ROM - Respiratory Respiratory effort: normal Respiratory: bilateral: CTA - Cardiovascular Heart Sounds: Present: S1 & S2. Absent: rub, click - Extremities Extremities: pulses symmetrical, No edema Peripheral Pulses: within normal limits - Abdominal General gastrointestinal: Present: soft, non-tender, non-distended, normal bowel sounds Female genitourinary: Present: normal - Integumentary Integumentary: Present: clear, warm, dry - Musculoskeletal Musculoskeletal: gait normal, strength equal bilaterally - Psychiatric Psychiatric: appropriate mood/affect, intact judgment & insight - Neurologic Neurologic: CNII-XII intact, moves all extremities Plan Follow up with: JANKI OCONNOR MD [Primary Care Provider] - 3-5 Days SHEBA RUBALCAVA MD [Staff Physician] - 7 Days ANGIE HACKETT MD [Staff Physician] - 7 Days DIANE SWARTZ MD [Staff Physician] - 7 Days RONNIE RG MD [Staff Physician] - 7 Days Prescriptions: Apixaban [Eliquis] 5 mg PO BID #60 Apixaban [Eliquis] 5 mg PO BID #60 tablet Nicotine [Habitrol] 7 mg TD DAILY #30 patch Prednisone [predniSONE 5 mg (6-Day Pack, 21 Tabs)] 5 mg PO .TAPER #1 tab.ds.pk Albuterol Sulfate [Proair Respiclick] 2 puff IH Q4H PRN #1 PRN Reason: Shortness Of Breath
[2019-04-23] MEDS: GABAPENTIN PO SCH (12:26)
[2019-04-23] MEDS: VITAMIN B-12 PO SCH (12:27)
[2019-04-23] MEDS: VALTREX PO SCH (12:27)
[2019-04-23] MEDS: ZOLOFT PO SCH (12:27)
[2019-04-23] MEDS: VITAMIN C PO SCH (12:27)
[2019-04-23] MEDS: K-DUR PO SCH (12:27)
[2019-04-23] MEDS: BABY ASPIRIN PO SCH (12:27)
[2019-04-23] MEDS: HEPARIN SUB-Q SCH (12:28)
[2019-04-23] MEDS: GEODON PO SCH (12:28)
[2019-04-23] MEDS: VITAMIN D3 PO SCH (12:28)
[2019-04-23] MEDS: LANTUS SUB-Q SCH ×2 (12:28→18:12)
[2019-04-23] MEDS: LASIX PO SCH (12:39)
--- NOTE | 2019-04-23 13:51 | Event Note ---
Date: 04/23/19 Detailed cardiology consultation dictated. Jim TRACY NP / DR. JOSEPH LOPEZ
--- NOTE | 2019-04-23 14:13 | Consultation ---
CONSULTING PHYSICIAN: Dr. Albrecht. REASON FOR CONSULTATION: Acute COPD exacerbation, shortness of breath. CHIEF COMPLAINT AND HISTORY OF PRESENT ILLNESS: As follows: The patient is a 39-year-old -[place] female with past medical history significant amongst other things for a diagnosis of COPD, tells me she should be on home oxygen, but is not on home oxygen, unclear if she just is not filling her prescription, came into the Emergency Room complaining of increasing shortness of breath, cough, mostly nonproductive. She denied any sick contacts. She denied any new onset leg pain or swelling either unilaterally or bilaterally. She also has a history of coronary artery disease and pulmonary embolism for which she is on anticoagulation and tells me she is compliant with her medications. She states she has a machine compositor in the community that she sees, but could not remember his name at that time. She was evaluated in the Emergency Room and ultimately diagnosed with COPD acute exacerbation and admitted to the medical floor where I stopped by to see him. When I stopped by to see her, she was resting in bed. She had used BiPAP therapy overnight, but denies a known diagnosis of obstructive sleep apnea. She denied any vomiting or overt aspiration prior to coming to the hospital. She denied any upper respiratory tract type symptoms. No rhinorrhea. No sore throat. She denies any GI symptoms such as abdominal pain, nausea, vomiting. Diarrhea, she denies. With regards to tobacco use/abuse, she seems to be about a 10+ pack year tobacco smoker and continues to smoke. This really is as much of the history of presentation as I have. PAST MEDICAL HISTORY: Hypertension, coronary artery disease, congestive heart failure, diabetes, history of bipolar disorder, history of hyperlipidemia and history of COPD. PAST SURGICAL HISTORY: She has had sections x 2 as well as appendectomy. MEDICATIONS: She was on at the time I stopped by to see were reviewed. Pertinent medications included the following: Tylenol 650 mg p.o. q. 4 hours p.r.n. mild pain or fevers, albuterol 2.5 mg nebulized q. 4 hours p.r.n. shortness of breath, DuoNeb treatments nebulized q. 6 hours, Brovana 15 mcg nebulized q.12 hours, vitamin C 500 mg p.o. daily, aspirin 81 mg p.o. daily, Lipitor 40 mg p.o. at bedtime, Pulmicort 0.5 mg nebulized q.12 hours, vitamin D3 1000 units p.o. daily, B12 100 mcg p.o. daily, Depakote extended release 1.5 grams p.o. at bedtime, Lasix 20 mg p.o. daily, Neurontin 600 mg p.o. b.i.d., p.r.n. Robitussin for cough, heparin 5000 units subcutaneous q. 12 hours. Atarax 50 mg p.o. q.6 hours p.r.n. itching, Levaquin 750 mg IV daily, Lantus insulin 15 units subcutaneous b.i.d., insulin via sliding scale. Melatonin 5 mg p.o. at bedtime, Solu-Medrol 60 mg IV q. 8 hours, metoprolol 50 mg p.o. b.i.d., Zofran 4 mg IV q. 8 hours p.r.n. nausea and vomiting, potassium chloride 10 mEq p.o. daily, Zoloft 200 mg p.o. daily, trazodone 100 mg p.o. at bedtime, Valtrex 500 mg p.o. daily, Geodon 130 mg p.o. daily. ALLERGIES: PENICILLIN AND SULFA MEDICATIONS. Nature of this allergy is unknown. DIET: Obese lady. Denies acute weight loss or gain in the preceding few weeks to months. FAMILY AND SOCIAL HISTORY: Lives in the community. She has a 10+ pack year tobacco smoking history. Denies alcohol or illicit drug use or abuse. Family history, otherwise noncontributory as far as she can tell me. REVIEW OF SYSTEMS: No loss of consciousness. No new onset seizures. No new onset focal weakness. Denies fevers or chills. Denies any eye pain or any eye discharge. She denies a sore throat as mentioned above. Denies gross hematochezia or melena. Denies gross hematuria or dysuria. Denies heat or cold intolerance. Denies polydipsia or polyuria. Denies any new rashes on her body. No new leg swelling or pain. Complete 13-system review of systems obtained. Pertinent positives and/or negatives as in body of history above, otherwise are noncontributory. PHYSICAL EXAMINATION: VITAL SIGNS: At presentation, she was afebrile, temperature 98.9 degrees Fahrenheit, pulse 125, respiratory rate of 31, blood pressure 124/76, oxygen sats 100%, inspired oxygen concentration at that time was not recorded. When I stopped by to see her, O2 sats were 98% on 3 liters nasal cannula. GENERAL: She is a middle-aged obese -[place]ian female, normocephalic, atraumatic, talking to me with slightly interrupted sentences without overt accessory muscle use, but with mildly increased respiratory effort at rest. HEAD, EYES, EARS, NOSE, NOSE, AND THROAT: Anicteric, no conjunctival erythema. Oropharynx is moist. Mallampati #3 oropharynx. No gross jugular venous distention. She does have a large neck circumference. No thyromegaly. Grossly, no palpable lymph nodes in the supraclavicular or submandibular lymph node chains. NECK: Supple. LUNGS: Auscultation of both lung urbina significant for diminished bilateral breath sounds, prolonged expiratory phase, bibasilar inspiratory rhonchi, no wheezing. HEART: Heart sounds 1 and 2 are heard. They were regular in rate and rhythm at the time of my evaluation without overt rubs or murmurs. ABDOMEN: Soft, full, protuberant. Bowel sounds are positive, nontender, no palpable hepatosplenomegaly. EXTREMITIES: Without overt digital clubbing, no cyanosis, no pedal edema. Pedal pulses are 2+ bilaterally. NEUROLOGIC: Pupils are equal and round, about 4 mm, reactive to light. Extraocular muscle movements are intact. She moved all 4 extremities spontaneously. SKIN: Normal turgor without overt cellulitis or rash. PSYCHIATRIC: Her mood was depressed. Her affect was somewhat anxious. LABORATORY DATA: From my review are as follows: Admission white cell count 6300, hemoglobin 9.9, hematocrit 30.6, platelet count 461. No manual differential. Arterial blood gas showed a pH of 7.35, pCO2 of 43, pO2 of 204 that was on 40% FiO2 at that time. Serum sodium is 134, potassium 4.1, chloride 97, bicarbonate 21, BUN 12, creatinine 0.8, glucose 114. Liver function test within normal limits. CPK was up at 304. Troponin within normal limits. No cultures for my review. Chest x-ray was done. I have reviewed the x-ray. I have also reviewed the radiologist's interpretation and I do agree with it, no acute process that I can tell. She does have cardiomegaly. It is an AP film, but all of this she has borderline cardiomegaly on this image suggestion of widened mediastinum. Suggestion of a right lower lobe pulmonary nodule. This is similar to an x-ray from 09/26/2018. At that time, a CT scan of her chest was also done. I am unable to pull up the film, but the report said no acute pulmonary process with cardiac size in the upper limits of normal at that time. ASSESSMENT: 1. Acute on chronic hypoxemic respiratory failure. 2. Acute chronic obstructive pulmonary disease exacerbation. 3. History of congestive heart failure. 4. Possible obstructive sleep apnea. 5. Obesity. 6. Diabetes. 7. Hyperlipidemia. 8. Coronary artery disease. 9. Hypertension. 10. Mild hyponatremia. 11. Mild metabolic acidosis. 12. Elevated serum creatinine kinase. PLAN: We will continue with current modalities. We will continue with empiric community-acquired pneumonia directed therapy. We will continue systemic and inhaled corticosteroids with a quick taper. We will continue long and short-acting bronchodilators. I have a very low suspicion for venous thromboembolic disorder in this lady. We will follow her clinically. No directed testing will be done for that. I will defer to the attending to reinstitute her home medications. Medication compliance has been counseled. Oxygen will be weaned to keep sats greater than or equal to about 90%. Aspiration precautions will be maintained. She is appropriately on DVT prophylaxis. She will benefit from GI prophylaxis. Flu and pneumonia vaccination will be addressed per protocol. Thank you very much for the consult. Dr. Albrecht will follow along and make further recommendations as picture progresses/becomes clearer. I should mention she should continue bilevel positive air pressure ventilation therapy at bedtime with outpatient Sleep Clinic evaluation. JOB# [id number] NEW/ALEXIS
[2019-04-23 17:10] VITALS: BP 90/42
--- NOTE | 2019-04-23 22:59 | Consultation ---
CARDIOLOGY EVALUATION The patient is in room 474. REASON FOR EVALUATION: Cardiac evaluation because of difficulty in breathing. HISTORY OF PRESENT ILLNESS: This is a 39-year-old female who is disabled because of multiple medical issues, comes here because of about 3-day history of worsening difficulty in breathing and coughing. The patient is known to have chronic obstructive disease. Today, she feels much better. The patient is known to have congestive heart failure, which was diagnosed at the age of 27. At that time, the ejection fraction was about 25%; however, recent echocardiogram done at [facility] in 2018 shows normal left ventricular function. She is known to have longstanding history of hypertension and diabetes. The patient also had pulmonary embolism in the past, for which she has been on Eliquis. The patient denies any chest pain at this time, there is questionable history of prior myocardial infarction. REVIEW OF SYSTEMS: HEAD, EYES, EARS, NOSE, AND THROAT: No symptoms. ENDOCRINE: The patient is known to have had diabetes type 2. GASTROINTESTINAL: No abdominal pain, nausea, or vomiting; however, she is known to have had peptic ulcer disease as well as ? esophageal ulcers. The patient apparently had endoscopy a couple of years ago. CENTRAL NERVOUS SYSTEM: No history of cerebrovascular accident or convulsive disorder. LOCOMOTOR: No symptoms. PSYCHIATRIC: The patient is known to have had depression, anxiety ? bipolar disorder and has been under treatment. PERSONAL HISTORY: Smokes half to one pack per day against medical advice. Nonalcoholic. Other past history includes hyperlipidemia. PHYSICAL EXAMINATION: GENERAL: Adult obese female, in no acute distress. The patient is afebrile. VITAL SIGNS: Blood pressure is 92/44, respirations 18, pulse 98. HEAD, EYES, EARS, NOSE AND THROAT: Unremarkable. NECK: Supple. No thyromegaly. Both carotids are palpable and equal. Neck veins are flat. CHEST: Symmetrical. LUNGS: Clear. CARDIOVASCULAR: S1 and S2 are heard well. No S3. No significant murmurs are appreciated. ABDOMEN: Soft, obese, nontender, no hepatosplenomegaly. EXTREMITIES: No significant edema or calf tenderness. LABORATORY DATA: EKG, sinus rhythm, sinus tachycardia, nonspecific ST changes are present. Blood gases, pH ____, pO2 203, pCO2 of 43, blood sugar 222, CK-MB negative. Troponin negative. IMPRESSION: 1. Difficulty in breathing, probably secondary to pulmonary issues, improving. 2. History of congestive heart failure and history of low ejection fraction; however, latest ejection fraction in 08/2018 is noted to be stable. 3. History of pulmonary embolism, on anticoagulants. 4. Hypertension. 5. Diabetes. 6. Hyperlipidemia. 7. Obesity. The patient is seen for cardiac evaluation. Clinically, cardiac status appears to be stable. She claims that she had a recent stress test also. At present, I do not see any further testing is warranted cardiac-freire. The patient will be monitored and followed along with you. Thank you for allowing me to participate in the care of this patient. JOB# [id number] BARB/NTS
== END 2019-04-23 19:33 | disposition home or self-care (01) ==
LOC: ED 00:27 → 4A 03:23
PROVIDERS: ADMIT Internal Medicine; ATTEND Internal Medicine
DX: J44.1 Chronic obstructive pulmonary disease with (acute) exacerbation (principal); D64.9 Anemia, unspecified; I11.0 Hypertensive heart disease with heart failure; I50.9 Heart failure, unspecified; I25.2 Old myocardial infarction; E11.9 Type 2 diabetes mellitus without complications; F31.9 Bipolar disorder, unspecified; F25.9 Schizoaffective disorder, unspecified; E78.5 Hyperlipidemia, unspecified; F17.200 Nicotine dependence, unspecified, uncomplicated; Z79.4 Long term (current) use of insulin; Z79.82 Long term (current) use of aspirin; Z98.891 History of uterine scar from previous surgery
CPT/HCPCS: 36415; 36600; 71045; 80053; 82550; 82553; 82803; 82962; 83880; 84484; 85025; 87116; 93005; 93010; 94640; 94760; 96365; 96366; 96367; 96372; 96375; 96376; 99291; 99406; A9270; G0378; J1644; J1956; J2270; J2405; J2920; J2930; J3475; J1815

== ENCOUNTER 2019-05-08 09:51 | Emergency (ER) | payer MEDICARE ==
[2019-05-08] MEDS ORDERED: IPRATROPIUM 0.02% NEBU 2.5 ML IH ONE (10:05)
[2019-05-08] MEDS ORDERED: methylPREDNISolone Sod Succinate 125 MG/2 ML INJ IV ONE (10:05)
[2019-05-08] MEDS ORDERED: ALBUTEROL 2.5 MG/3 ML NEBU IH ONE ×2 (10:05→11:49)
--- NOTE | 2019-05-08 10:18 | Emergency Department Report ---
HPI - General Chief Complaint: Dyspnea/Respdistress Time Seen by Provider: 05/08/19 10:00 - HPI HPI: 39-year-old [place] female presents to the emergency department from home with complaint of a one-day history of shortness of breath, wheezing and some chest tightness. She has a past medical history of asthma, COPD, CHF, diabetes, hypertension, bipolar disorder and schizoaffective disorder. The patient has been using her albuterol inhaler and nebulizer treatments at home without any relief. No recent travel or sick contacts at home. She is oxygen dependent at night. Her primary care physician is a Dr. Palma, sprayer insecticide is Dr. Capps and her director of laboratory operations is Dr. Beach. She is a tobacco smoker but denies any illicit drug use. ED Past Medical Hx - Past Medical History Previous Medical History?: Yes Hx Hypertension: Yes Hx Heart Attack/AMI: Yes (2 ATTACKS,NO STENTS) Hx Congestive Heart Failure: Yes Hx Diabetes: Yes Hx Psychiatric Treatment: Yes (bipolar depression, schizoaffective disorder) Hx Asthma: Yes Hx COPD: Yes Additional medical history: high cholestrol - Surgical History Past Surgical History?: Yes Hx Appendectomy: Yes Additional Surgical History: C-Sectionx2. d&c - Social History Smoking Status: Current Every Day Smoker Substance Use Type: None - Medications Home Medications: Home Medications Medication Instructions Recorded Confirmed Last Taken Type AtorvaSTATin [Lipitor] 40 mg PO QHS 01/29/19 04/22/19 1 Day Ago History ~02/12/19 Furosemide [Lasix TAB] 20 mg PO QDAY 01/29/19 04/22/19 02/13/19 History Gabapentin 600 mg PO BID 01/29/19 04/22/19 02/13/19 History Lispro Insulin [HumaLOG] 1 dose SQ ACHS 01/29/19 04/22/19 02/13/19 History Metformin HCl [metFORMIN ER 500 mg PO BID 01/29/19 04/22/19 02/13/19 History Gastric] Metoprolol [Lopressor TAB] 50 mg PO BID 01/29/19 04/22/19 02/13/19 09:00 History Sertraline [Zoloft] 100 mg PO QDAY 01/29/19 04/22/19 02/13/19 09:00 History hydrOXYzine HCL [Atarax] 50 mg PO Q6HR PRN 01/29/19 04/22/19 02/13/19 History traZODone [Desyrel] 100 mg PO QHS 01/29/19 04/22/19 1 Day Ago History ~02/12/19 valACYclovir [Valtrex] 500 mg PO DAILY 01/29/19 04/22/19 02/13/19 History Aspirin BABY CHEW TAB 81 mg PO DAILY 02/13/19 04/22/19 02/13/19 09:00 History Co Q-10 100 mg PO DAILY 02/13/19 04/22/19 02/13/19 History Divalproex ER 1,500 mg PO HS 02/13/19 04/22/19 1 Day Ago History ~02/12/19 Fish Oil 1,000 mg PO DAILY 02/13/19 04/22/19 02/13/19 History Flax Seed Oil 1,000 mg PO DAILY 02/13/19 04/22/19 02/13/19 History Garlic 500 mg PO DAILY 02/13/19 04/22/19 02/13/19 History Geodon 120 mg PO DAILY 02/13/19 04/22/19 02/13/19 History Levemir VIAL 15 unit SQ BID 02/13/19 04/22/19 02/13/19 History Melatonin 5 mg PO QHS 02/13/19 04/22/19 1 Day Ago History ~02/12/19 Collins-3 1,040 mg PO DAILY 02/13/19 04/22/19 02/13/19 History Potassium 10 meq PO DAILY 02/13/19 04/22/19 02/13/19 History Victoza 2-Jose 1 vial SQ DAILY 02/13/19 04/22/19 02/13/19 History Vitamin B-12 100 mcg PO DAILY 02/13/19 04/22/19 02/13/19 History Vitamin C 250 mg Tablet Chew 500 mg PO DAILY 02/13/19 04/22/19 02/13/19 History Vitamin D3 Complete Caplet 25 mcg PO DAILY 02/13/19 04/22/19 02/13/19 History Apixaban [Eliquis] 5 mg PO BID #60 04/23/19 Unknown Rx Apixaban [Eliquis] 5 mg PO BID #60 tablet 04/23/19 Unknown Rx Nicotine [Habitrol] 7 mg TD DAILY #30 patch 04/23/19 Unknown Rx ALBUTEROL NEB's [Proventil 0.083% 2.5 mg IH QID PRN #1 box 05/08/19 Unknown Rx NEBS] Albuterol Sulfate [Proair 2 puff IH Q4H PRN #1 05/08/19 Unknown Rx Respiclick] Benzonatate [Tessalon Perles] 100 mg PO Q8HR PRN #20 capsule 05/08/19 Unknown Rx Prednisone [predniSONE 5 mg (6-Day 5 mg PO .TAPER #1 tab.ds.pk 05/08/19 Unknown Rx Pack, 21 Tabs)] ED Review of Systems ROS: Stated complaint: BLAS Other details as noted in HPI Comment: All other systems reviewed and negative Constitutional: denies: chills, fever Eyes: denies: eye pain, vision change ENT: denies: ear pain, throat pain Respiratory: cough, shortness of breath, wheezing Cardiovascular: chest pain. denies: edema Gastrointestinal: denies: abdominal pain, vomiting Genitourinary: denies: dysuria, discharge Musculoskeletal: denies: back pain, arthralgia Skin: denies: rash, lesions Neurological: denies: headache, weakness Physical Exam - Physical Exam Vital Signs: Vital Signs 05/08/19 09:56 Temperature 98.9 F Pulse Rate 104 H Respiratory 18 Rate Blood Pressure 128/72 O2 Sat by Pulse 97 Oximetry Physical Exam: GENERAL: The patient is well-developed well-nourished. HENT: Normocephalic. Atraumatic. Patient has moist mucous membranes. EYES: Extraocular motions are intact. NECK: Supple. Trachea is midline. CHEST/LUNGS: Mild expiratory wheezing. Mild tachypnea but no accessory muscle use. There is no respiratory distress noted. HEART/CARDIOVASCULAR: Regular. There is mild tachycardia. There is no murmur. ABDOMEN: Abdomen is soft, nontender. Patient has normal bowel sounds. There is no abdominal distention. SKIN: Skin is warm and dry. NEURO: The patient is awake, alert, and oriented. The patient is cooperative. The patient has no focal neurologic deficits. Normal speech. MUSCULOSKELETAL: There is no tenderness or deformity. There is no evidence of acute injury. ED Course Vital Signs 05/08/19 09:56 Temperature 98.9 F Pulse Rate 104 H Respiratory 18 Rate Blood Pressure 128/72 O2 Sat by Pulse 97 Oximetry ED Medical Decision Making - Lab Data Result diagrams: 05/08/19 10:26 05/08/19 10:26 - EKG Data -: EKG Interpreted by Me EKG shows normal: sinus rhythm, axis, intervals, QRS complexes, ST-T waves Rate: normal - EKG Data When compared to previous EKG there are: previous EKG unavailable Interpretation: normal EKG - Radiology Data Radiology results: image reviewed interpreted by me: Chest x-ray does not show any acute process. There are no pleural effusions, obvious pneumonia and there is no pneumothorax. - Medical Decision Making This patient presents with some recent shortness of breath, wheezing, coughing. Chest x-ray does not show any pleural effusions, pneumothorax, focal consolidation, or any other acute process. Patient was given 2 different rounds of nebulized breathing treatments and a dose of steroids. She was given a dose of pain medication for her chest wall discomfort secondary to her coughing. EKG does not show any signs of ST elevation [place], ischemia or dysrhythmia. Labs have been unremarkable including CBC, metabolic panel, BNP and a negative troponin. The patient is on anticoagulation and has been compliant with it and therefore is low suspicion for a pulmonary embolism. She has been reevaluated multiple times over multiple hours and is feeling greatly improved. Vital signs have been stable throughout her ED course including being afebrile and no hypoxia. The patient appears safe for discharge home at this time. She has been instructed to follow-up with her primary care physician and sprayer insecticide. She has been given a refill of her albuterol, a prescription for steroids and a breathing treatment. She has been instructed to return to the ER with any worsening of her symptoms or any acute distress. - Differential Diagnosis asthma, COPD, pneumonia, CHF Critical Care Time: No Critical care attestation.: If time is entered above; I have spent that time in minutes in the direct care of this critically ill patient, excluding procedure time. ED Disposition Clinical Impression: COPD with exacerbation, Bronchospasm Asthma exacerbation Qualifiers: Asthma severity: unspecified severity Asthma persistence: unspecified Qualified Code(s): J45.901 - Unspecified asthma with (acute) exacerbation Disposition: - TO HOME OR SELFCARE Is pt being admited?: No Condition: Stable Instructions: Asthma (ED), Chronic Obstructive Pulmonary Disease (ED) Additional Instructions: Please follow-up with your primary care physician and sprayer insecticide. Return to the emergency Department with any worsening of your symptoms or any acute distress. Prescriptions: Prednisone [predniSONE 5 mg (6-Day Pack, 21 Tabs)] 5 mg PO .TAPER #1 tab.ds.pk Albuterol Sulfate [Proair Respiclick] 2 puff IH Q4H PRN #1 PRN Reason: Shortness Of Breath ALBUTEROL NEB's [Proventil 0.083% NEBS] 2.5 mg IH QID PRN #1 box PRN Reason: Wheezing Benzonatate [Tessalon Perles] 100 mg PO Q8HR PRN #20 capsule PRN Reason: Cough Referrals: PCP, Your [Other] - 2-3 Days Air Pollution Specialist, Your [Other] - 2-3 Days Time of Disposition: 12:56
[2019-05-08 10:42] LABS: Basophils # (Auto) 0.1 K/mm3 (0.0-0.1); Basophils % (Auto) 0.7 % (0.0-1.8); Eosinophils # (Auto) 0.2 K/mm3 (0.0-0.4); Hematocrit 29.6 % (30.3-42.9); Hemoglobin 9.3 gm/dl (10.1-14.3); Lymphocytes % (Auto) 33.7 % (13.4-35.0); Mean Corpuscular HGB Conc 32 % (30-34); Mean Corpuscular Volume 82 fl (79-97); Monocytes # (Auto) 0.8 K/mm3 (0.0-0.8); Monocytes % (Auto) 8.6 % (0.0-7.3); Platelet Count 466 K/mm3 (140-440); Red Blood Count 3.62 M/mm3 (3.65-5.03); Red Cell Distribution Width 16.2 % (13.2-15.2)
[2019-05-08] MEDS ORDERED: MORPHINE 4 MG/1 ML INJ IV ONE (11:01)
[2019-05-08 11:06] LABS: BUN/Creatinine Ratio 19; Blood Urea Nitrogen 13 mg/dL (7-17); Calcium 8.8 mg/dL (8.4-10.2); Hemolysis Index 0
--- NOTE | 2019-05-08 11:34 | XRay Report ---
CHEST 1 VIEW INDICATION: Dyspnea. COMPARISON: 04/22/2019 FINDINGS: Support devices: None. Heart: Within normal limits. Lungs/Pleura: No acute air space or interstitial disease. Additional findings: None. IMPRESSION: No acute findings. Signer Name: Christian Flynn Jr, MD Signed: 05/08/2019 11:30 AM Workstation Name: [id number]
[2019-05-08 12:29] VITALS: BP 97/60
== END 2019-05-08 14:00 | disposition home or self-care (01) ==
LOC: ED 09:51
DX: J44.1 Chronic obstructive pulmonary disease with (acute) exacerbation (principal); I11.0 Hypertensive heart disease with heart failure; I50.9 Heart failure, unspecified; E11.9 Type 2 diabetes mellitus without complications; F31.9 Bipolar disorder, unspecified; F25.9 Schizoaffective disorder, unspecified; F17.200 Nicotine dependence, unspecified, uncomplicated; E78.00 Pure hypercholesterolemia, unspecified; Z90.49 Acquired absence of other specified parts of digestive tract; Z79.899 Other long term (current) drug therapy; Z79.1 Long term (current) use of non-steroidal anti-inflammatories (NSAID); Z88.0 Allergy status to penicillin; Z88.2 Allergy status to sulfonamides
CPT/HCPCS: 36415; 71045; 80048; 83880; 84484; 85025; 93005; 93010; 94640; 96374; 96375; 99285; J2270; J2930; 94644

== ENCOUNTER 2019-05-18 23:25 | Emergency (ER) | payer MEDICARE ==
[2019-05-19 01:05] LABS: Basophils # (Auto) 0.1 K/mm3 (0.0-0.1); Basophils % (Auto) 1.3 % (0.0-1.8); Eosinophils # (Auto) 0.1 K/mm3 (0.0-0.4); Eosinophils % (Auto) 1.8 % (0.0-4.3); Hematocrit 31.5 % (30.3-42.9); Hemoglobin 10.2 gm/dl (10.1-14.3); Lymphocytes # (Auto) 2.7 K/mm3 (1.2-5.4); Lymphocytes % (Auto) 37.5 % (13.4-35.0); Mean Corpuscular HGB Conc 32 % (30-34); Mean Corpuscular Volume 80 fl (79-97); Monocytes # (Auto) 0.7 K/mm3 (0.0-0.8); Monocytes % (Auto) 10.1 % (0.0-7.3); Platelet Count 355 K/mm3 (140-440); Red Blood Count 3.91 M/mm3 (3.65-5.03); Red Cell Distribution Width 16.2 % (13.2-15.2)
[2019-05-19 01:27] LABS: BUN/Creatinine Ratio 26; Blood Urea Nitrogen 29 mg/dL (7-17); Calcium 9.6 mg/dL (8.4-10.2); Hemolysis Index 5
--- NOTE | 2019-05-19 02:43 | XRay Report ---
CHEST 1 VIEW INDICATION: Chest Pain. COMPARISON: 05/08/2019. FINDINGS: Support devices: None. Heart: Within normal limits. Lungs/Pleura: No acute air space or interstitial disease. Prior granulomatous exposure. Additional findings: None. IMPRESSION: No acute abnormality. Signer Name: Colby Gregorio MD Signed: 05/19/2019 2:38 AM Workstation Name: [email or web address]
[2019-05-19] MEDS ORDERED: ONDANSETRON 4 MG/2 ML INJ IV ONE (03:05)
[2019-05-19] MEDS ORDERED: MORPHINE 2 MG/1 ML INJ IV ONE (03:05)
--- NOTE | 2019-05-19 03:18 | Emergency Department Report ---
ED Chest Pain HPI - General Chief Complaint: Chest Pain Stated Complaint: CHEST PAIN/BLAS Time Seen by Provider: 05/19/19 02:52 Source: patient, EMS Mode of arrival: Ambulatory Limitations: No Limitations - History of Present Illness Initial Comments: 39-year-old female with history of asthma, CAD (no stents in place), CHF, diabetes, bipolar and schizoaffective disorder, presents to ED with chest pain. Patient reports she has had nausea, vomiting, diarrhea for the last 3 days. Patient states she developed substernal chest pain today, denies abdominal pain. Patient states chest pain is sharp in nature without radiating. Also reports wheezing. Courtesy Driver: Dr Juliette RAMIREZ Complaint: chest pain -: days(s) (1) Onset: during rest Pain Location: substernal Pain Radiation: none Severity: moderate Quality: sharp Consistency: constant Improves With: nothing Worsens With: other (vomiting) re: nausea, vomting, dyspnea Other Symptoms: denies: cough, fever - Related Data Home Medications Medication Instructions Recorded Confirmed Last Taken AtorvaSTATin [Lipitor] 40 mg PO QHS 01/29/19 04/22/19 1 Day Ago ~02/12/19 Furosemide [Lasix TAB] 20 mg PO QDAY 01/29/19 04/22/19 02/13/19 Gabapentin 600 mg PO BID 01/29/19 04/22/19 02/13/19 Lispro Insulin [HumaLOG] 1 dose SQ ACHS 01/29/19 04/22/19 02/13/19 Metformin HCl [metFORMIN ER 500 mg PO BID 01/29/19 04/22/19 02/13/19 Gastric] Metoprolol [Lopressor TAB] 50 mg PO BID 01/29/19 04/22/19 02/13/19 09:00 Sertraline [Zoloft] 100 mg PO QDAY 01/29/19 04/22/19 02/13/19 09:00 hydrOXYzine HCL [Atarax] 50 mg PO Q6HR PRN 01/29/19 04/22/19 02/13/19 traZODone [Desyrel] 100 mg PO QHS 01/29/19 04/22/19 1 Day Ago ~02/12/19 valACYclovir [Valtrex] 500 mg PO DAILY 01/29/19 04/22/19 02/13/19 Aspirin BABY CHEW TAB 81 mg PO DAILY 02/13/19 04/22/19 02/13/19 09:00 Co Q-10 100 mg PO DAILY 02/13/19 04/22/19 02/13/19 Divalproex ER 1,500 mg PO HS 02/13/19 04/22/19 1 Day Ago ~02/12/19 Fish Oil 1,000 mg PO DAILY 02/13/19 04/22/19 02/13/19 Flax Seed Oil 1,000 mg PO DAILY 02/13/19 04/22/19 02/13/19 Garlic 500 mg PO DAILY 02/13/19 04/22/19 02/13/19 Geodon 120 mg PO DAILY 02/13/19 04/22/19 02/13/19 Levemir VIAL 15 unit SQ BID 02/13/19 04/22/19 02/13/19 Melatonin 5 mg PO QHS 02/13/19 04/22/19 1 Day Ago ~02/12/19 Trilla-3 1,040 mg PO DAILY 02/13/19 04/22/19 02/13/19 Potassium 10 meq PO DAILY 02/13/19 04/22/19 02/13/19 Victoza 2-Jose 1 vial SQ DAILY 02/13/19 04/22/19 02/13/19 Vitamin B-12 100 mcg PO DAILY 02/13/19 04/22/19 02/13/19 Vitamin C 250 mg Tablet Chew 500 mg PO DAILY 02/13/19 04/22/19 02/13/19 Vitamin D3 Complete Caplet 25 mcg PO DAILY 02/13/19 04/22/19 02/13/19 Previous Rx's Medication Instructions Recorded Last Taken Type Apixaban [Eliquis] 5 mg PO BID #60 04/23/19 Unknown Rx Apixaban [Eliquis] 5 mg PO BID #60 tablet 04/23/19 Unknown Rx Nicotine [Habitrol] 7 mg TD DAILY #30 patch 04/23/19 Unknown Rx ALBUTEROL NEB's [Proventil 0.083% 2.5 mg IH QID PRN #1 box 05/08/19 Unknown Rx NEBS] Albuterol Sulfate [Proair 2 puff IH Q4H PRN #1 05/08/19 Unknown Rx Respiclick] Benzonatate [Tessalon Perles] 100 mg PO Q8HR PRN #20 capsule 05/08/19 Unknown Rx Prednisone [predniSONE 5 mg (6-Day 5 mg PO .TAPER #1 tab.ds.pk 05/08/19 Unknown Rx Pack, 21 Tabs)] Albuterol Sulfate [Proventil Hfa] 2 puff IH Q4HR PRN #1 hfa.aer.ad 05/19/19 Unknown Rx Benzonatate [Tessalon Perles] 100 mg PO Q8HR PRN #20 capsule 05/19/19 Unknown Rx Ondansetron [Zofran Odt] 4 mg PO Q8HR PRN #20 tab.rapdis 05/19/19 Unknown Rx predniSONE [Deltasone] 50 mg PO QDAY #5 tab 05/19/19 Unknown Rx Allergies Allergy/AdvReac Type Severity Reaction Status Date / Time Penicillins Allergy Anaphylaxis Verified 01/29/19 10:17 Sulfa (Sulfonamide AdvReac Anaphylaxis Verified 01/29/19 10:17 Antibiotics) Heart Score - HEART Score History: Slightly suspicious EKG: Normal Age: < 45 Risk factors: > 3 risk factors or hx of atherosclerotic disease Troponin: < normal limit HEART Score: 2 ED Review of Systems ROS: Stated complaint: CHEST PAIN/BLAS Other details as noted in HPI Comment: All other systems reviewed and negative Constitutional: denies: chills, fever Respiratory: shortness of breath Cardiovascular: chest pain Gastrointestinal: nausea, vomiting, diarrhea. denies: abdominal pain ED Past Medical Hx - Past Medical History Previous Medical History?: Yes Hx Hypertension: Yes Hx Heart Attack/AMI: Yes (2 ATTACKS,NO STENTS) Hx Congestive Heart Failure: Yes Hx Diabetes: Yes Hx Psychiatric Treatment: Yes (bipolar depression, schizoaffective disorder) Hx Asthma: Yes Hx COPD: Yes Additional medical history: high cholestrol - Surgical History Past Surgical History?: Yes Hx Appendectomy: Yes Additional Surgical History: C-Sectionx2. d&c - Social History Smoking Status: Never Smoker Substance Use Type: None - Medications Home Medications: Home Medications Medication Instructions Recorded Confirmed Last Taken Type AtorvaSTATin [Lipitor] 40 mg PO QHS 01/29/19 04/22/19 1 Day Ago History ~02/12/19 Furosemide [Lasix TAB] 20 mg PO QDAY 01/29/19 04/22/19 02/13/19 History Gabapentin 600 mg PO BID 01/29/19 04/22/19 02/13/19 History Lispro Insulin [HumaLOG] 1 dose SQ ACHS 01/29/19 04/22/19 02/13/19 History Metformin HCl [metFORMIN ER 500 mg PO BID 01/29/19 04/22/19 02/13/19 History Gastric] Metoprolol [Lopressor TAB] 50 mg PO BID 01/29/19 04/22/19 02/13/19 09:00 History Sertraline [Zoloft] 100 mg PO QDAY 01/29/19 04/22/19 02/13/19 09:00 History hydrOXYzine HCL [Atarax] 50 mg PO Q6HR PRN 01/29/19 04/22/19 02/13/19 History traZODone [Desyrel] 100 mg PO QHS 01/29/19 04/22/19 1 Day Ago History ~02/12/19 valACYclovir [Valtrex] 500 mg PO DAILY 01/29/19 04/22/19 02/13/19 History Aspirin BABY CHEW TAB 81 mg PO DAILY 02/13/19 04/22/19 02/13/19 09:00 History Co Q-10 100 mg PO DAILY 02/13/19 04/22/19 02/13/19 History Divalproex ER 1,500 mg PO HS 02/13/19 04/22/19 1 Day Ago History ~02/12/19 Fish Oil 1,000 mg PO DAILY 02/13/19 04/22/19 02/13/19 History Flax Seed Oil 1,000 mg PO DAILY 02/13/19 04/22/19 02/13/19 History Garlic 500 mg PO DAILY 02/13/19 04/22/19 02/13/19 History Geodon 120 mg PO DAILY 02/13/19 04/22/19 02/13/19 History Levemir VIAL 15 unit SQ BID 02/13/19 04/22/19 02/13/19 History Melatonin 5 mg PO QHS 02/13/19 04/22/19 1 Day Ago History ~02/12/19 Trilla-3 1,040 mg PO DAILY 02/13/19 04/22/19 02/13/19 History Potassium 10 meq PO DAILY 02/13/19 04/22/19 02/13/19 History Victoza 2-Jose 1 vial SQ DAILY 02/13/19 04/22/19 02/13/19 History Vitamin B-12 100 mcg PO DAILY 02/13/19 04/22/19 02/13/19 History Vitamin C 250 mg Tablet Chew 500 mg PO DAILY 02/13/19 04/22/19 02/13/19 History Vitamin D3 Complete Caplet 25 mcg PO DAILY 02/13/19 04/22/19 02/13/19 History Apixaban [Eliquis] 5 mg PO BID #60 04/23/19 Unknown Rx Apixaban [Eliquis] 5 mg PO BID #60 tablet 04/23/19 Unknown Rx Nicotine [Habitrol] 7 mg TD DAILY #30 patch 04/23/19 Unknown Rx ALBUTEROL NEB's [Proventil 0.083% 2.5 mg IH QID PRN #1 box 05/08/19 Unknown Rx NEBS] Albuterol Sulfate [Proair 2 puff IH Q4H PRN #1 05/08/19 Unknown Rx Respiclick] Benzonatate [Tessalon Perles] 100 mg PO Q8HR PRN #20 capsule 05/08/19 Unknown Rx Prednisone [predniSONE 5 mg (6-Day 5 mg PO .TAPER #1 tab.ds.pk 05/08/19 Unknown Rx Pack, 21 Tabs)] Albuterol Sulfate [Proventil Hfa] 2 puff IH Q4HR PRN #1 hfa.aer.ad 05/19/19 Unknown Rx Benzonatate [Tessalon Perles] 100 mg PO Q8HR PRN #20 capsule 05/19/19 Unknown R x Ondansetron [Zofran Odt] 4 mg PO Q8HR PRN #20 tab.rapdis 05/19/19 Unknown Rx predniSONE [Deltasone] 50 mg PO QDAY #5 tab 05/19/19 Unknown Rx ED Physical Exam - General Limitations: No Limitations General appearance: alert, in no apparent distress - Head Head exam: Present: atraumatic, normocephalic - Eye Eye exam: Present: normal appearance, EOMI - ENT ENT exam: Present: mucous membranes moist - Neck Neck exam: Present: normal inspection - Respiratory Respiratory exam: Present: normal lung sounds bilaterally. Absent: respiratory distress - Cardiovascular Cardiovascular Exam: Present: regular rate, normal rhythm - GI/Abdominal GI/Abdominal exam: Present: soft. Absent: distended, tenderness - Extremities Exam Extremities exam: Present: normal inspection - Neurological Exam Neurological exam: Present: alert, oriented X3 - Psychiatric Psychiatric exam: Present: normal affect, normal mood - Skin Skin exam: Present: warm, dry, intact, normal color ED Course Vital Signs 05/18/19 05/18/19 05/19/19 23:40 23:41 03:40 Temperature 98.2 F 98.2 F Pulse Rate 77 84 Respiratory 20 20 Rate Blood Pressure 133/77 Blood Pressure 133/77 [Left] O2 Sat by Pulse 98 97 95 Oximetry 05/19/19 05/19/19 05/19/19 03:45 04:00 04:06 Temperature Pulse Rate 78 76 Respiratory 11 L 16 18 Rate Blood Pressure 103/58 113/68 Blood Pressure [Left] O2 Sat by Pulse 91 90 100 Oximetry 05/19/19 05/19/19 05/19/19 04:15 04:30 04:45 Temperature Pulse Rate 75 Respiratory 13 Rate Blood Pressure 101/65 106/67 97/54 Blood Pressure [Left] O2 Sat by Pulse 91 93 91 Oximetry 05/19/19 05/19/19 05/19/19 05:00 05:15 05:30 Temperature Pulse Rate Respiratory Rate Blood Pressure 99/60 107/49 94/48 Blood Pressure [Left] O2 Sat by Pulse 100 92 90 Oximetry BERT score - Bert Score Age > 65: (0) No Aspirin use within the Past 7 Days: (0) No 3 or more CAD Risk Factors: (0) No 2 or more Angina events in past 24 hrs: (1) Yes Known CAD with more than 50% Stenosis: (0) No Elevated Cardiac Markers: (0) No ST Deviation Greater than 0.5mm: (0) No BERT Score: 1 ED Medical Decision Making - Lab Data Result diagrams: 05/19/19 00:45 05/19/19 00:45 - EKG Data -: EKG Interpreted by Me EKG shows normal: sinus rhythm, axis, intervals, QRS complexes, ST-T waves Rate: normal - EKG Data Interpretation: no acute changes - Radiology Data Radiology results: report reviewed, image reviewed - Medical Decision Making 39-year-old female with vomiting, diarrhea, chest pain and wheezing. No emesis or loose stools here in the ED. Abdomen is soft nontender. O2 sats normal. Patient given breathing treatment, Zofran, morphine for pain. EKG normal with normal troponin and chest x-ray. Patient feeling much better at this time. We'll discharge home. Outpatient follow-up advised. Return precautions and prescriptions given. - Differential Diagnosis asthma, gastroenteritis, gastritis Critical care attestation.: If time is entered above; I have spent that time in minutes in the direct care of this critically ill patient, excluding procedure time. ED Disposition Clinical Impression: Asthma exacerbation, Gastroenteritis Disposition: DC- TO HOME OR SELFCARE Is pt being admited?: No Condition: Stable Instructions: Asthma (ED), Gastroenteritis (ED) Prescriptions: predniSONE [Deltasone] 50 mg PO QDAY #5 tab Albuterol Sulfate [Proventil Hfa] 2 puff IH Q4HR PRN #1 hfa.aer.ad PRN Reason: Wheezing Benzonatate [Tessalon Perles] 100 mg PO Q8HR PRN #20 capsule PRN Reason: Cough Ondansetron [Zofran Odt] 4 mg PO Q8HR PRN #20 tab.rapdis PRN Reason: Vomiting Referrals: JANKI OCONNOR MD [Primary Care Provider] - 3-5 Days
[2019-05-19] MEDS ORDERED: ALBUTEROL 2.5 MG/3 ML NEBU IH ONE (03:54)
[2019-05-19] MEDS ORDERED: IPRATROPIUM 0.02% NEBU 2.5 ML IH ONE (03:54)
[2019-05-19 04:02] LABS: Alanine Aminotransferase 12 units/L (7-56)
[2019-05-19 04:05] LABS: Bilirubin,Direct < 0.2 mg/dL (0-0.2)
[2019-05-19 04:13] LABS: INR 1.03 (0.87-1.13)
[2019-05-19 04:14] LABS: Partial Thromboplastin Time 32.5 Sec. (24.2-36.6)
[2019-05-19] MEDS ORDERED: methylPREDNISolone Sod Succinate 125 MG/2 ML INJ IV ONE (05:02)
[2019-05-19 05:48] VITALS: BP 94/48
== END 2019-05-19 05:48 | disposition home or self-care (01) ==
LOC: ED 23:25
DX: J45.901 Unspecified asthma with (acute) exacerbation (principal); K52.9 Noninfective gastroenteritis and colitis, unspecified; R11.2 Nausea with vomiting, unspecified; I11.0 Hypertensive heart disease with heart failure; I50.9 Heart failure, unspecified; E11.9 Type 2 diabetes mellitus without complications; F31.9 Bipolar disorder, unspecified; F25.9 Schizoaffective disorder, unspecified; E11.22 Type 2 diabetes mellitus with diabetic chronic kidney disease; E78.00 Pure hypercholesterolemia, unspecified; Z79.899 Other long term (current) drug therapy; Z88.0 Allergy status to penicillin; Z88.2 Allergy status to sulfonamides; Z90.49 Acquired absence of other specified parts of digestive tract
CPT/HCPCS: 36415; 71045; 80048; 80076; 83690; 84484; 84703; 85025; 85379; 85610; 85730; 93005; 93010; 94640; 96374; 96375; 99285; J2270; J2405; 94644

== ENCOUNTER 2019-06-22 11:36 | Observation (INO) | payer MEDICARE ==
--- NOTE | 2019-06-22 12:21 | Event Note ---
ED Screening Note Date of service: 06/22/19 Time: 12:18 ED Screening Note: This is a 39 y.o. F. that presents to the ER with chest pain radiating to LUE for 1 hour. PMH of HTN, CHF, DM2, TX, and schizoaffective disorder Current smoker This initial assessment/diagnostic orders/clinical plan/treatment(s) is/are subject to change based on patients health status, clinical progression and re- assessment by fellow clinical providers in the ED. Further treatment and workup at subsequent clinical providers discretion. Patient/guardian urged not to elope from the ED as their condition may be serious if not clinically assessed and managed. Initial orders include: EKG, labs, and CXR
[2019-06-22 13:00] LABS: Basophils # (Auto) 0.1 K/mm3 (0.0-0.1); Basophils % (Auto) 0.9 % (0.0-1.8); Eosinophils # (Auto) 0.1 K/mm3 (0.0-0.4); Hemoglobin 10.5 gm/dl (10.1-14.3); Lymphocytes # (Auto) 2.3 K/mm3 (1.2-5.4); Lymphocytes % (Auto) 30.9 % (13.4-35.0); Mean Corpuscular HGB Conc 32 % (30-34); Mean Corpuscular Volume 81 fl (79-97); Monocytes # (Auto) 0.5 K/mm3 (0.0-0.8); Monocytes % (Auto) 6.3 % (0.0-7.3); Red Blood Count 4.09 M/mm3 (3.65-5.03); Red Cell Distribution Width 16.3 % (13.2-15.2)
--- NOTE | 2019-06-22 13:18 | XRay Report ---
CHEST 1 VIEW 06/22/2019 12:34 PM INDICATION / CLINICAL INFORMATION: Chest Pain. COMPARISON: 05/19/19 FINDINGS: SUPPORT DEVICES: None. HEART / MEDIASTINUM: No significant abnormality. LUNGS / PLEURA: No significant pulmonary or pleural abnormality. Right lung calcified granuloma is un changed. No pneumothorax. ADDITIONAL FINDINGS: No significant additional findings. IMPRESSION: 1. No acute findings. No change. Signer Name: Peter Connor MD Signed: 06/22/2019 1:14 PM Workstation Name: [id number]
[2019-06-22 13:29] LABS: BUN/Creatinine Ratio 21; Blood Urea Nitrogen 15 mg/dL (7-17); Calcium 9.5 mg/dL (8.4-10.2); Hemolysis Index 42
[2019-06-22 13:51] LABS: Platelet Count 279 K/mm3 (140-440)
--- NOTE | 2019-06-22 18:33 | Emergency Department Report ---
ED Chest Pain HPI - General Chief Complaint: Chest Pain Stated Complaint: CHEST PAIN/SOB Time Seen by Provider: 06/22/19 12:18 Source: patient Mode of arrival: Ambulatory Limitations: No Limitations - History of Present Illness Initial Comments: Patient is a 39-year-old female that presents emergency room with complaints of chest pain and difficulty breathing. Patient states her symptoms started 30 minutes prior to arrival. Patient states she is having difficulties in breathing. Patient states her chest pain is a 10 out of 10. Patient states her chest pain and shortness of breath or better with rest and worse with exertion. Patient denies fever and chills. Patient denies diaphoresis. Patient also complains of nausea. MD Complaint: chest pain -: Sudden, minutes(s) (30 minutes prior to arrival) Onset: during rest Pain Location: left chest Pain Radiation: LUE Severity: severe Severity scale (0 -10): 10 Quality: sharp Consistency: constant Improves With: rest Worsens With: exertion re: dyspnea. denies: nausea, vomting, diaphoresis, sense of impending doom Other Symptoms: denies: cough, fever, syncope, rash, acid taste in mouth, palpitations, burping Treatments Prior to Arrival: none Aspirin use within the Past 7 Days: (1) Yes - Related Data On Oral Contraceptives: No Home Medications Medication Instructions Recorded Confirmed Last Taken AtorvaSTATin [Lipitor] 40 mg PO QHS 01/29/19 04/22/19 1 Day Ago ~02/12/19 Furosemide [Lasix TAB] 20 mg PO QDAY 01/29/19 04/22/19 02/13/19 Gabapentin 600 mg PO BID 01/29/19 04/22/19 02/13/19 Lispro Insulin [HumaLOG] 1 dose SQ ACHS 01/29/19 04/22/19 02/13/19 Metformin HCl [metFORMIN ER 500 mg PO BID 01/29/19 04/22/19 02/13/19 Gastric] Metoprolol [Lopressor TAB] 50 mg PO BID 01/29/19 04/22/19 02/13/19 09:00 Sertraline [Zoloft] 100 mg PO QDAY 01/29/19 04/22/19 02/13/19 09:00 hydrOXYzine HCL [Atarax] 50 mg PO Q6HR PRN 01/29/19 04/22/19 02/13/19 traZODone [Desyrel] 100 mg PO QHS 01/29/19 04/22/19 1 Day Ago ~02/12/19 valACYclovir [Valtrex] 500 mg PO DAILY 01/29/19 04/22/19 02/13/19 Aspirin BABY CHEW TAB 81 mg PO DAILY 02/13/19 04/22/19 02/13/19 09:00 Co Q-10 100 mg PO DAILY 02/13/19 04/22/19 02/13/19 Divalproex ER 1,500 mg PO HS 02/13/19 04/22/19 1 Day Ago ~02/12/19 Fish Oil 1,000 mg PO DAILY 02/13/19 04/22/19 02/13/19 Flax Seed Oil 1,000 mg PO DAILY 02/13/19 04/22/19 02/13/19 Garlic 500 mg PO DAILY 02/13/19 04/22/19 02/13/19 Geodon 120 mg PO DAILY 02/13/19 04/22/19 02/13/19 Levemir VIAL 15 unit SQ BID 02/13/19 04/22/19 02/13/19 Melatonin 5 mg PO QHS 02/13/19 04/22/19 1 Day Ago ~02/12/19 Lilly-3 1,040 mg PO DAILY 02/13/19 04/22/19 02/13/19 Potassium 10 meq PO DAILY 02/13/19 04/22/19 02/13/19 Victoza 2-Jose 1 vial SQ DAILY 02/13/19 04/22/19 02/13/19 Vitamin B-12 100 mcg PO DAILY 02/13/19 04/22/19 02/13/19 Vitamin C 250 mg Tablet Chew 500 mg PO DAILY 02/13/19 04/22/19 02/13/19 Vitamin D3 Complete Caplet 25 mcg PO DAILY 02/13/19 04/22/19 02/13/19 Previous Rx's Medication Instructions Recorded Last Taken Type Apixaban [Eliquis] 5 mg PO BID #60 04/23/19 Unknown Rx Apixaban [Eliquis] 5 mg PO BID #60 tablet 04/23/19 Unknown Rx Nicotine [Habitrol] 7 mg TD DAILY #30 patch 04/23/19 Unknown Rx ALBUTEROL NEB's [Proventil 0.083% 2.5 mg IH QID PRN #1 box 05/08/19 Unknown Rx NEBS] Albuterol Sulfate [Proair 2 puff IH Q4H PRN #1 05/08/19 Unknown Rx Respiclick] Benzonatate [Tessalon Perles] 100 mg PO Q8HR PRN #20 capsule 05/08/19 Unknown Rx Prednisone [predniSONE 5 mg (6-Day 5 mg PO .TAPER #1 tab.ds.pk 05/08/19 Unknown Rx Pack, 21 Tabs)] Albuterol Sulfate [Proventil Hfa] 2 puff IH Q4HR PRN #1 hfa.aer.ad 05/19/19 U nknown Rx Benzonatate [Tessalon Perles] 100 mg PO Q8HR PRN #20 capsule 05/19/19 Unknown Rx Ondansetron [Zofran Odt] 4 mg PO Q8HR PRN #20 tab.rapdis 05/19/19 Unknown Rx predniSONE [Deltasone] 50 mg PO QDAY #5 tab 05/19/19 Unknown Rx Allergies Allergy/AdvReac Type Severity Reaction Status Date / Time Penicillins Allergy Anaphylaxis Verified 06/22/19 11:37 Sulfa (Sulfonamide AdvReac Anaphylaxis Verified 06/22/19 11:37 Antibiotics) Heart Score - HEART Score History: Moderately suspicious EKG: Normal Age: < 45 Risk factors: > 3 risk factors or hx of atherosclerotic disease Troponin: < normal limit HEART Score: 3 ED Review of Systems ROS: Stated complaint: CHEST PAIN/SOB Other details as noted in HPI Constitutional: denies: chills, fever Eyes: denies: eye pain, eye discharge, vision change ENT: denies: ear pain, throat pain Respiratory: shortness of breath. denies: cough, wheezing Cardiovascular: chest pain. denies: palpitations Endocrine: no symptoms reported Gastrointestinal: denies: abdominal pain, nausea, diarrhea Genitourinary: denies: urgency, dysuria, discharge Musculoskeletal: denies: back pain, joint swelling, arthralgia Skin: denies: rash, lesions Neurological: denies: headache, weakness, paresthesias Psychiatric: denies: anxiety, depression Hematological/Lymphatic: denies: easy bleeding, easy bruising ED Past Medical Hx - Past Medical History Previous Medical History?: Yes Hx Hypertension: Yes Hx Heart Attack/AMI: Yes (2 ATTACKS,NO STENTS) Hx Congestive Heart Failure: Yes Hx Diabetes: Yes Hx Psychiatric Treatment: Yes (bipolar depression, schizoaffective disorder) Hx Asthma: Yes Hx COPD: Yes Additional medical history: high cholestrol - Surgical History Past Surgical History?: Yes Hx Coronary Stent: Yes Hx Appendectomy: Yes Additional Surgical History: C-Sectionx2. d&c - Family History Family history: no significant - Social History Smoking Status: Current Every Day Smoker Substance Use Type: None - Medications Home Medications: Home Medications Medication Instructions Recorded Confirmed Last Taken Type AtorvaSTATin [Lipitor] 40 mg PO QHS 01/29/19 04/22/19 1 Day Ago History ~02/12/19 Furosemide [Lasix TAB] 20 mg PO QDAY 01/29/19 04/22/19 02/13/19 History Gabapentin 600 mg PO BID 01/29/19 04/22/19 02/13/19 History Lispro Insulin [HumaLOG] 1 dose SQ ACHS 01/29/19 04/22/19 02/13/19 History Metformin HCl [metFORMIN ER 500 mg PO BID 01/29/19 04/22/19 02/13/19 History Gastric] Metoprolol [Lopressor TAB] 50 mg PO BID 01/29/19 04/22/19 02/13/19 09:00 History Sertraline [Zoloft] 100 mg PO QDAY 01/29/19 04/22/19 02/13/19 09:00 History hydrOXYzine HCL [Atarax] 50 mg PO Q6HR PRN 01/29/19 04/22/19 02/13/19 History traZODone [Desyrel] 100 mg PO QHS 01/29/19 04/22/19 1 Day Ago History ~02/12/19 valACYclovir [Valtrex] 500 mg PO DAILY 01/29/19 04/22/19 02/13/19 History Aspirin BABY CHEW TAB 81 mg PO DAILY 02/13/19 04/22/19 02/13/19 09:00 History Co Q-10 100 mg PO DAILY 02/13/19 04/22/19 02/13/19 History Divalproex ER 1,500 mg PO HS 02/13/19 04/22/19 1 Day Ago History ~02/12/19 Fish Oil 1,000 mg PO DAILY 02/13/19 04/22/19 02/13/19 History Flax Seed Oil 1,000 mg PO DAILY 02/13/19 04/22/19 02/13/19 History Garlic 500 mg PO DAILY 02/13/19 04/22/19 02/13/19 History Geodon 120 mg PO DAILY 02/13/19 04/22/19 02/13/19 History Levemir VIAL 15 unit SQ BID 02/13/19 04/22/19 02/13/19 History Melatonin 5 mg PO QHS 02/13/19 04/22/19 1 Day Ago History ~02/12/19 Lilly-3 1,040 mg PO DAILY 02/13/19 04/22/19 02/13/19 History Potassium 10 meq PO DAILY 02/13/19 04/22/19 02/13/19 History Victoza 2-Jose 1 vial SQ DAILY 02/13/19 04/22/19 02/13/19 History Vitamin B-12 100 mcg PO DAILY 02/13/19 04/22/19 02/13/19 History Vitamin C 250 mg Tablet Chew 500 mg PO DAILY 02/13/19 04/22/19 02/13/19 History Vitamin D3 Complete Caplet 25 mcg PO DAILY 02/13/19 04/22/19 02/13/19 History Apixaban [Eliquis] 5 mg PO BID #60 04/23/19 Unknown Rx Apixaban [Eliquis] 5 mg PO BID #60 tablet 04/23/19 Unknown Rx Nicotine [Habitrol] 7 mg TD DAILY #30 patch 04/23/19 Unknown Rx ALBUTEROL NEB's [Proventil 0.083% 2.5 mg IH QID PRN #1 box 05/08/19 Unknown Rx NEBS] Albuterol Sulfate [Proair 2 puff IH Q4H PRN #1 05/08/19 Unknown Rx Respiclick] Benzonatate [Tessalon Perles] 100 mg PO Q8HR PRN #20 capsule 05/08/19 Unknown Rx Prednisone [predniSONE 5 mg (6-Day 5 mg PO .TAPER #1 tab.ds.pk 05/08/19 Unknown Rx Pack, 21 Tabs)] Albuterol Sulfate [Proventil Hfa] 2 puff IH Q4HR PRN #1 hfa.aer.ad 05/19/19 Unknown Rx Benzonatate [Tessalon Perles] 100 mg PO Q8HR PRN #20 capsule 05/19/19 Unknown Rx Ondansetron [Zofran Odt] 4 mg PO Q8HR PRN #20 tab.rapdis 05/19/19 Unknown Rx predniSONE [Deltasone] 50 mg PO QDAY #5 tab 05/19/19 Unknown Rx ED Physical Exam - General Limitations: No Limitations General appearance: alert, in no apparent distress - Head Head exam: Present: atraumatic, normocephalic - Eye Eye exam: Present: normal appearance - ENT ENT exam: Present: mucous membranes moist - Neck Neck exam: Present: normal inspection - Respiratory Respiratory exam: Present: normal lung sounds bilaterally. Absent: respiratory distress, wheezes, rales, chest wall tenderness - Cardiovascular Cardiovascular Exam: Present: regular rate, normal rhythm. Absent: systolic murmur, diastolic murmur, rubs, gallop - GI/Abdominal GI/Abdominal exam: Present: soft, normal bowel sounds. Absent: distended, tenderness, guarding - Extremities Exam Extremities exam: Present: normal inspection - Back Exam Back exam: Present: normal inspection - Neurological Exam Neurological exam: Present: alert, oriented X3 - Psychiatric Psychiatric exam: Present: normal affect, normal mood - Skin Skin exam: Present: warm, dry, intact, normal color. Absent: rash ED Course Vital Signs 06/22/19 06/22/19 12:18 12:20 Temperature 98.5 F 98.5 F Pulse Rate 104 H 89 Respiratory 18 16 Rate Blood Pressure 131/81 Blood Pressure 110/68 [Right] O2 Sat by Pulse 100 100 Oximetry - Reevaluation(s) Reevaluation #1: I discussed all results with patient. Discussed plan of care patient. Patient agrees plan of care and admission. Patient admitted to the hospitalist service. 06/22/19 19:29 - Consultations Consultation #1: Hospitalist consult for admission. Hospitalist admit patient. 06/22/19 19:29 DARRYL score - Darryl Score Age > 65: (0) No Aspirin use within the Past 7 Days: (1) Yes 3 or more CAD Risk Factors: (1) Yes 2 or more Angina events in past 24 hrs: (1) Yes Known CAD with more than 50% Stenosis: (0) No Elevated Cardiac Markers: (0) No ST Deviation Greater than 0.5mm: (0) No DARRYL Score: 3 ED Medical Decision Making - Lab Data Result diagrams: 06/22/19 12:34 06/22/19 12:34 - EKG Data -: EKG Interpreted by Me EKG shows normal: sinus rhythm, axis, intervals, QRS complexes, ST-T waves Rate: normal - Radiology Data Radiology results: report reviewed CHEST 1 VIEW 06/22/2019 12:34 PM INDICATION / CLINICAL INFORMATION: Chest Pain. COMPARISON: 05/19/19 FINDINGS: SUPPORT DEVICES: None. HEART / MEDIASTINUM: No significant abnormality. LUNGS / PLEURA: No significant pulmonary or pleural abnormality. Right lung calcified granuloma is unchanged. No pneumothorax. ADDITIONAL FINDINGS: No significant additional findings. IMPRESSION: 1. No acute findings. No change. - Medical Decision Making Patient is a 39-year-old female up since emergency room with complaints of chest pain. Patient has a history of CAD. Patient's heart scorer. Patient admitted to the hospitalist service. Patient's labs unremarkable. Patient pain medications to improve her chest pain. Patient's EKG does not show a STEMI. Patient's x-ray is negative. - Differential Diagnosis ECS, chest pain, CAD Critical Care Time: Yes Critical care time in (mins) excluding proc time.: 35 Critical care attestation.: If time is entered above; I have spent that time in minutes in the direct care of this critically ill patient, excluding procedure time. Critical Care Time: 35 minutes ED Disposition Clinical Impression: SOB (shortness of breath) Chest pain Qualifiers: Chest pain type: unspecified Qualified Code(s): R07.9 - Chest pain, unspecified CAD (coronary artery disease) Qualifiers: Coronary Disease-Associated Artery/Lesion type: [place] artery [place] vs. tra nsplanted heart: [place] heart Associated angina: with unspecified angina Qualified Code(s): I25.119 - Atherosclerotic heart disease of [place] coronary artery with unspecified angina pectoris Disposition: OP ADMIT IP TO THIS HOSP Is pt being admited?: Yes Does the pt Need Aspirin: No Condition: Critical Time of Disposition: 19:30
[2019-06-22] MEDS ORDERED: ONDANSETRON 4 MG/2 ML INJ IV ONE (19:12)
[2019-06-22] MEDS ORDERED: ASPIRIN 325 MG TAB PO ONE (19:12)
[2019-06-22] MEDS ORDERED: MORPHINE 2 MG/1 ML INJ IV ONE (19:12)
[2019-06-22] MEDS ORDERED: MORPHINE 2 MG/1 ML INJ IV PRN (20:28)
[2019-06-22] MEDS ORDERED: ONDANSETRON 4 MG/2 ML INJ IV PRN (20:28)
--- NOTE | 2019-06-22 20:33 | History and Physical Report ---
History of Present Illness Date of examination: 06/22/19 Date of admission: 06/22/19 19:31 Chief complaint: Chest pain History of present illness: Patient is a 39-year-old female whom presents to [facility] ER with complaints of chest pain since this a.m. Patient has a past medical history of hypertension, COPD 2 L home oxygen, CHF, diabetes, bipolar disorder and coronary artery disease. Patient describes her pain as 6/10, sharp, located left chest pain with radiation to L arm. Denies nausea or vomiting but admits to diarrhea x1 week. Past History Past Medical History: other (As noted in HPI) Past Surgical History: appendectomy, , Other Social history: smoking (Everyday smoker x28 years) Family history: hypertension Medications and Allergies Allergies Allergy/AdvReac Type Severity Reaction Status Date / Time Penicillins Allergy Anaphylaxis Verified 06/22/19 11:37 Sulfa (Sulfonamide AdvReac Anaphylaxis Verified 06/22/19 11:37 Antibiotics) Home Medications Medication Instructions Recorded Confirmed Last Taken Type AtorvaSTATin [Lipitor] 40 mg PO QHS 01/29/19 04/22/19 1 Day Ago History ~02/12/19 Furosemide [Lasix TAB] 20 mg PO QDAY 01/29/19 04/22/19 02/13/19 History Gabapentin 600 mg PO BID 01/29/19 04/22/19 02/13/19 History Lispro Insulin [HumaLOG] 1 dose SQ ACHS 01/29/19 04/22/19 02/13/19 History Metformin HCl [metFORMIN ER 500 mg PO BID 01/29/19 04/22/19 02/13/19 History Gastric] Metoprolol [Lopressor TAB] 50 mg PO BID 01/29/19 04/22/19 02/13/19 09:00 History Sertraline [Zoloft] 100 mg PO QDAY 01/29/19 04/22/19 02/13/19 09:00 History hydrOXYzine HCL [Atarax] 50 mg PO Q6HR PRN 01/29/19 04/22/19 02/13/19 History traZODone [Desyrel] 100 mg PO QHS 01/29/19 04/22/19 1 Day Ago History ~02/12/19 valACYclovir [Valtrex] 500 mg PO DAILY 01/29/19 04/22/19 02/13/19 History Aspirin BABY CHEW TAB 81 mg PO DAILY 02/13/19 04/22/19 02/13/19 09:00 History Co Q-10 100 mg PO DAILY 02/13/19 04/22/19 02/13/19 History Divalproex ER 1,500 mg PO HS 02/13/19 04/22/19 1 Day Ago History ~02/12/19 Fish Oil 1,000 mg PO DAILY 02/13/19 04/22/19 02/13/19 History Flax Seed Oil 1,000 mg PO DAILY 02/13/19 04/22/19 02/13/19 History Garlic 500 mg PO DAILY 02/13/19 04/22/19 02/13/19 History Geodon 120 mg PO DAILY 02/13/19 04/22/19 02/13/19 History Levemir VIAL 15 unit SQ BID 02/13/19 04/22/19 02/13/19 History Melatonin 5 mg PO QHS 02/13/19 04/22/19 1 Day Ago History ~02/12/19 [place]-3 1,040 mg PO DAILY 02/13/19 04/22/19 02/13/19 History Potassium 10 meq PO DAILY 02/13/19 04/22/19 02/13/19 History Victoza 2-Jose 1 vial SQ DAILY 02/13/19 04/22/19 02/13/19 History Vitamin B-12 100 mcg PO DAILY 02/13/19 04/22/19 02/13/19 History Vitamin C 250 mg Tablet Chew 500 mg PO DAILY 02/13/19 04/22/19 02/13/19 History Vitamin D3 Complete Caplet 25 mcg PO DAILY 02/13/19 04/22/19 02/13/19 History Apixaban [Eliquis] 5 mg PO BID #60 04/23/19 Unknown Rx Apixaban [Eliquis] 5 mg PO BID #60 tablet 04/23/19 Unknown Rx Nicotine [Habitrol] 7 mg TD DAILY #30 patch 04/23/19 Unknown Rx ALBUTEROL NEB's [Proventil 0.083% 2.5 mg IH QID PRN #1 box 05/08/19 Unknown Rx NEBS] Albuterol Sulfate [Proair 2 puff IH Q4H PRN #1 05/08/19 Unknown Rx Respiclick] Benzonatate [Tessalon Perles] 100 mg PO Q8HR PRN #20 capsule 05/08/19 Unknown Rx Prednisone [predniSONE 5 mg (6-Day 5 mg PO .TAPER #1 tab.ds.pk 05/08/19 Unknown Rx Pack, 21 Tabs)] Albuterol Sulfate [Proventil Hfa] 2 puff IH Q4HR PRN #1 hfa.aer.ad 05/19/19 Un known Rx Benzonatate [Tessalon Perles] 100 mg PO Q8HR PRN #20 capsule 05/19/19 Unknown Rx Ondansetron [Zofran Odt] 4 mg PO Q8HR PRN #20 tab.rapdis 05/19/19 Unknown Rx predniSONE [Deltasone] 50 mg PO QDAY #5 tab 05/19/19 Unknown Rx Active Meds: Active Medications Acetaminophen (Tylenol) 650 mg PO Q4H PRN PRN Reason: Pain MILD(1-3)/Fever >100.5/SOLORZANO Morphine Sulfate (Morphine) 2 mg IV Q4H PRN PRN Reason: Pain, Moderate (4-6) Ondansetron HCl (Zofran) 4 mg IV Q8H PRN PRN Reason: Nausea And Vomiting Sodium Chloride (Sodium Chloride Flush Syringe 10 Ml) 10 ml IV BID FIFI Sodium Chloride (Sodium Chloride Flush Syringe 10 Ml) 10 ml IV PRN PRN PRN Reason: LINE FLUSH Review of Systems All systems: negative Constitutional: no fever, no chills, no sweats Ears, nose, mouth and throat: no decreased hearing, no nasal congestion, no nasal discharge Breasts: no pain Cardiovascular: chest pain, shortness of breath, high blood pressure Respiratory: no congestion, no wheezing Gastrointestinal: diarrhea Genitourinary Female: no pelvic pain, no flank pain Rectal: no incontinence Musculoskeletal: no neck pain, no low back pain, no muscle weakness Integumentary: no rash Neurological: no head injury, no weakness, no parathesias Psychiatric: other (Bipolar disorder) Endocrine: high blood sugars, no cold intolerance, no heat intolerance Hematologic/Lymphatic: no easy bruising, no easy bleeding Allergic/Immunologic: no wheezing Exam - Physical Exam Narrative exam: Present: no acute distress - EENT Eyes: Present: PERRL ENT: hearing intact, clear oral mucosa - Neck Neck: Present: supple, normal ROM - Respiratory Respiratory effort: normal Respiratory: bilateral: CTA - Cardiovascular Heart rate: 80 Heart Sounds: Present: S1 & S2. Absent: rub, click - Extremities Extremities: pulses symmetrical, No edema Peripheral Pulses: within normal limits - Abdominal General gastrointestinal: Present: soft, non-tender, non-distended, normal bowel sounds Female genitourinary: Present: normal - Integumentary Integumentary: Present: clear, warm, dry - Musculoskeletal Musculoskeletal: gait normal, strength equal bilaterally - Psychiatric Psychiatric: appropriate mood/affect, intact judgment & insight - Neurologic Neurologic: CNII-XII intact, moves all extremities - Constitutional Vitals: Temp Pulse Resp BP Pulse Ox 98.5 F 89 16 110/68 100 06/22/19 12:20 06/22/19 12:20 06/22/19 12:20 06/22/19 12:20 06/22/19 12:20 Results - Labs CBC & Chem 7: 06/22/19 12:34 06/22/19 12:34 Labs: Laboratory Last Values WBC 7.3 K/mm3 (4.5-11.0) 06/22/19 12:34 RBC 4.09 M/mm3 (3.65-5.03) 06/22/19 12:34 Hgb 10.5 gm/dl (10.1-14.3) 06/22/19 12:34 Hct 33.0 % (30.3-42.9) 06/22/19 12:34 MCV 81 fl (79-97) 06/22/19 12:34 MCH 26 pg (28-32) L 06/22/19 12:34 MCHC 32 % (30-34) 06/22/19 12:34 RDW 16.3 % (13.2-15.2) H 06/22/19 12:34 Plt Count 279 K/mm3 (140-440) 06/22/19 12:34 Lymph % (Auto) 30.9 % (13.4-35.0) 06/22/19 12:34 [place] % (Auto) 6.3 % (0.0-7.3) 06/22/19 12:34 Eos % (Auto) 1.0 % (0.0-4.3) 06/22/19 12:34 Baso % (Auto) 0.9 % (0.0-1.8) 06/22/19 12:34 Lymph # 2.3 K/mm3 (1.2-5.4) 06/22/19 12:34 [place] # 0.5 K/mm3 (0.0-0.8) 06/22/19 12:34 Eos # 0.1 K/mm3 (0.0-0.4) 06/22/19 12:34 Baso # 0.1 K/mm3 (0.0-0.1) 06/22/19 12:34 Seg Neutrophils % 60.9 % (40.0-70.0) 06/22/19 12:34 Seg Neutrophils # 4.5 K/mm3 (1.8-7.7) 06/22/19 12:34 Sodium 135 mmol/L (137-145) L 06/22/19 12:34 Potassium 4.5 mmol/L (3.6-5.0) 06/22/19 12:34 Chloride 99.1 mmol/L (98-107) 06/22/19 12:34 Carbon Dioxide 19 mmol/L (22-30) L 06/22/19 12:34 Anion Gap 21 mmol/L 06/22/19 12:34 BUN 15 mg/dL (7-17) 06/22/19 12:34 Creatinine 0.7 mg/dL (0.7-1.2) 06/22/19 12:34 Estimated GFR > 60 ml/min 06/22/19 12:34 BUN/Creatinine Ratio 21 % 06/22/19 12:34 Glucose 94 mg/dL (65-100) 06/22/19 12:34 POC Glucose 97 (70-105) 06/22/19 18:31 Calcium 9.5 mg/dL (8.4-10.2) 06/22/19 12:34 Troponin T < 0.010 ng/mL (0.00-0.029) 06/22/19 19:27 - Imaging and Cardiology EKG: report reviewed (Sinus rhythm) Chest x-ray: report reviewed (No acute findings. No change.) Assessment and Plan Assessment and plan: Chest pain -Trop negative x2 -Cardiac enzymes COPD -steriods, nebs and RT rx -cont oxygen supplement Hyponatremia - Mild, can be corrected by IV fluids -monitor labs Bipolar disorder -Supportive care -Continue home meds once reconciled Hypertension -BP currently stable -Continue home meds after reconciled, adjust as needed -Monitor BP q shift Diabetes mellitus -Accu-Cheks AChs -Monitor labs Tobacco abuse -Smoking cessation counseling -Nicotine patch if needed DVT prophylaxis -SCDs -Lovenox VTE prophylaxis?: Chemical Plan of care discussed with patient/family: Yes
[2019-06-22] MEDS ORDERED: diphenhydrAMINE 50 MG/ML VIAL IV ONE (20:48)
[2019-06-22] MEDS ORDERED: diphenhydrAMINE 50 MG/ML VIAL ONE (20:48)
[2019-06-22] MEDS ORDERED: SODIUM CHLORIDE 0.9% 1000 ML 1,000 ML IV ONE (22:57)
[2019-06-22] MEDS ORDERED: SODIUM CHLORIDE 0.9% 1000 ML 1,000 ML IV SCH (23:30)
[2019-06-22] MEDS ORDERED: diphenhydrAMINE 25 MG CAP PO PRN (23:54)
[2019-06-23] MEDS ORDERED: ALBUTEROL 2.5 MG/3 ML NEBU IH PRN
[2019-06-23] MEDS: KETOROLAC 30 MG/1 ML INJ IV SCH ×3 (00:11→11:37)
[2019-06-23 00:20] LABS: Creatine Kinase MB < 1.0 ng/mL (0.0-4.0)
[2019-06-23 03:26] LABS: Basophils # (Auto) 0.1 K/mm3 (0.0-0.1); Basophils % (Auto) 0.7 % (0.0-1.8); Eosinophils # (Auto) 0.1 K/mm3 (0.0-0.4); Eosinophils % (Auto) 1.2 % (0.0-4.3); Hematocrit 29.9 % (30.3-42.9); Hemoglobin 9.6 gm/dl (10.1-14.3); Lymphocytes # (Auto) 2.2 K/mm3 (1.2-5.4); Lymphocytes % (Auto) 31.4 % (13.4-35.0); Mean Corpuscular HGB Conc 32 % (30-34); Mean Corpuscular Volume 80 fl (79-97); Monocytes # (Auto) 0.5 K/mm3 (0.0-0.8); Platelet Count 375 K/mm3 (140-440); Red Blood Count 3.73 M/mm3 (3.65-5.03); Red Cell Distribution Width 16.1 % (13.2-15.2)
[2019-06-23] MEDS: ACETAMINOPHEN 325 MG TAB PO PRN ×2 (03:53→09:24)
[2019-06-23 04:31] LABS: BUN/Creatinine Ratio 19; Blood Urea Nitrogen 15 mg/dL (7-17); Calcium 8.9 mg/dL (8.4-10.2); Hemolysis Index 0
[2019-06-23 08:21] VITALS: BP 95/47
[2019-06-23] MEDS ORDERED: ASPIRIN EC 325 MG TAB PO SCH (10:00)
--- NOTE | 2019-06-23 11:57 | Discharge Summary ---
Providers - Providers Date of Admission: 06/22/19 19:31 Date of discharge: 06/23/19 Attending physician: RAJESH MIMS Hospitalization Reason for admission: Chest pain Condition: Stable Pertinent studies: CXR Hospital course: Patient is a 39-year-old female whom presents to [facility] ER with complaints of chest pain since this a.m. Patient has a past medical history of hypertension, COPD 2 L home oxygen, CHF, diabetes, bipolar disorder and coronary artery disease. Patient describes her pain as 6/10, sharp, located left chest pain with radiation to L arm. Denies nausea or vomiting . Managed appropriately,symptoms improved Today patient feels better,no new complaints,vital signs stable Physical exam is unremarkable. Stable at discharge Discharge Diagnosis: --Chest pain improved --COPD steriods, nebs and RT rx cont oxygen supplement --Hyponatremia improved --Bipolar disorder cont current management --Hypertension mod control,cont current meds --Diabetes mellitus Accu-Cheks AChs --Tobacco abuse Smoking cessation counseling Nicotine patch if needed Stable at discharge. Disposition: DC- TO HOME OR SELFCARE Time spent for discharge: 32 min Core Measure Documentation - Palliative Care Palliative Care/ Comfort Measures: Not Applicable - Core Measures Any of the following diagnoses?: none Exam - Constitutional Vitals: Temp Pulse Resp BP Pulse Ox 98.0 F 79 18 95/47 97 06/23/19 08:18 06/23/19 10:00 06/23/19 10:00 06/23/19 08:18 06/23/19 10:00 General appearance: Present: no acute distress, well-nourished - EENT Eyes: Present: PERRL, EOM intact - Neck Neck: Present: supple, normal ROM - Respiratory Respiratory effort: normal Respiratory: bilateral: diminished, negative: rales, rhonchi, wheezing - Cardiovascular Rhythm: regular Heart Sounds: Present: S1 & S2 - Extremities Extremities: no ischemia, pulses intact - Abdominal General gastrointestinal: Present: soft, non-tender, non-distended, normal bowel sounds - Integumentary Integumentary: Present: clear, warm - Musculoskeletal Musculoskeletal: strength equal bilaterally, generalized weakness - Psychiatric Psychiatric: appropriate mood/affect, cooperative - Neurologic Neurologic: CNII-XII intact Plan Activity: advance as tolerated Diet: diabetic Special Instructions: smoking cessation Additional Instructions: Advised to see psychiatric test per schedule Follow up with: JANKI OCONNOR [Other] - 3-5 Days Prescriptions: AtorvaSTATin [Lipitor] 40 mg PO QHS #30 Metoprolol [Lopressor TAB] 50 mg PO BID #60
[2019-06-23] MEDS ORDERED: ENOXAPARIN 40 MG/0.4 ML INJ SUB-Q SCH (22:00)
== END 2019-06-23 12:38 | disposition home or self-care (01) ==
LOC: ED 11:36 → 4A 19:31
PROVIDERS: ADMIT Internal Medicine; ATTEND Internal Medicine
DX: R07.89 Other chest pain (principal); J44.9 Chronic obstructive pulmonary disease, unspecified; E87.1 Hypo-osmolality and hyponatremia; F31.9 Bipolar disorder, unspecified; I10 Essential (primary) hypertension; E11.9 Type 2 diabetes mellitus without complications; I25.10 Atherosclerotic heart disease of native coronary artery without angina pectoris; F17.200 Nicotine dependence, unspecified, uncomplicated; R19.7 Diarrhea, unspecified; Z90.49 Acquired absence of other specified parts of digestive tract; Z98.891 History of uterine scar from previous surgery; Z79.4 Long term (current) use of insulin
CPT/HCPCS: 36415; 71045; 80048; 82550; 82553; 82962; 84484; 85025; 87116; 93005; 93010; 96361; 96374; 96375; 96376; 99291; 99406; G0378; J1200; J1885; J2270; J2405; J7030

== ENCOUNTER 2019-08-21 10:24 | Emergency (ER) | payer MEDICARE ==
[2019-08-21 11:08] VITALS: BP 118/67
--- NOTE | 2019-08-21 11:42 | Emergency Department Report ---
{null, Chief Complaint: Extremity Injury, Lower Stated Complaint: LUMP IN LT LEG Time Seen by Provider: 08/21/19 11:39 - HPI History of Present Illness: pt is a 39 yo female who presents to the ED with c/o a lump to the left lower leg that began a few days ago. she does not remember getting bit or scratching herself. she denies any fever, drainage, n/v/d, chills. she denies any other symptoms. she is ambulatory without difficulty. vitals are normal on exam: non toxic appearing, no acute distress 0.5 cm small healing scab present to the left anterior joseph, very tiny amount of erythema, there is no drainage, no increased warmth, no fluctuance, no induration does not appear to be cellulitis or abscess not an ulceration advised pt to clean with antibacterial soap and use triple antibiotic or neosporin over the counter three times a day pt referred to primary care doctor for reexamination in 3 days pt is presenting with a non medical emergency at this time, there is no threat to life or limb at this time discussed strict return precautions with pt - Exam Vital Signs: Vital Signs 08/21/19 10:39 Temperature 98.8 F Pulse Rate 83 Respiratory 18 Rate Blood Pressure 118/67 O2 Sat by Pulse 97 Oximetry MSE screening note: Focused history and physical exam performed. ED Disposition for MSE Clinical Impression: Scab Disposition: Z-07 MED SCREENING EXAM-LEFT Is pt being admited?: No Does the pt Need Aspirin: No Condition: Stable Instructions: Acute Wound Care (ED) Additional Instructions: please clean with antibacterial soap 2-3 times a day. please use triple antibio tic or neosporin over the counter. follow up with a primary care doctor in the next 2-3 days to have the area reexamined. return to the emergency room for any new or worsening symptoms including but not limited to increased swelling, increasing redness, drainage, fever, chills, etc. Referrals: OLVIN WATKINS MD [Staff Physician] - 2-3 Days [facility] [Outside] - 2-[address] [facility] [place] [Outside] - 2-3 Days Time of Disposition: 12:03 Print Language: ZAMBIAN }
== END 2019-08-21 12:20 | disposition left against medical advice (07) ==
LOC: ED 10:24
DX: R22.9 Localized swelling, mass and lump, unspecified (principal); R23.4 Changes in skin texture; Z88.2 Allergy status to sulfonamides; Z88.0 Allergy status to penicillin
CPT/HCPCS: 99281

== ENCOUNTER 2019-08-23 16:00 | Emergency (ER) | payer MEDICARE ==
--- NOTE | 2019-08-23 16:15 | Emergency Department Report ---
Blank Doc - Documentation Documentation: 39-year-old female that presents with chest pain, SOB, n/v. This initial assessment/diagnostic orders/clinical plan/treatment(s) is/are subject to change based on patient's health status, clinical progression and re- assessment by fellow clinical providers in the ED. Further treatment and workup at subsequent clinical providers discretion. Patient/guardians urged not to elope from the ED as their condition may be serious if not clinically assessed and managed. Initial orders include: 1- Patient sent to MAIN ED for further evaluation and treatment 2- cardiac workup
[2019-08-23] MEDS ORDERED: ONDANSETRON 4 MG/2 ML INJ IV ONE ×2 (16:32→18:53)
[2019-08-23] MEDS ORDERED: SODIUM CHLORIDE 0.9% 500 ML 500 ML IV ONE (16:32)
[2019-08-23] MEDS ORDERED: FAMOTIDINE 20 MG/2 ML INJ IV ONE (16:32)
[2019-08-23 16:43] LABS: Basophils # (Auto) 0.1 K/mm3 (0.0-0.1); Basophils % (Auto) 1.1 % (0.0-1.8); Eosinophils # (Auto) 0.1 K/mm3 (0.0-0.4); Eosinophils % (Auto) 0.9 % (0.0-4.3); Hematocrit 32.2 % (30.3-42.9); Hemoglobin 10.2 gm/dl (10.1-14.3); Lymphocytes # (Auto) 2.6 K/mm3 (1.2-5.4); Lymphocytes % (Auto) 26.6 % (13.4-35.0); Mean Corpuscular HGB Conc 32 % (30-34); Mean Corpuscular Volume 77 fl (79-97); Monocytes # (Auto) 0.8 K/mm3 (0.0-0.8); Monocytes % (Auto) 7.9 % (0.0-7.3); Platelet Count 418 K/mm3 (140-440); Red Blood Count 4.18 M/mm3 (3.65-5.03); Red Cell Distribution Width 17.8 % (13.2-15.2)
[2019-08-23 16:52] LABS: INR 1.16 (0.87-1.13)
[2019-08-23 16:58] LABS: Alanine Aminotransferase 11 units/L (7-56); Albumin 4.1 g/dL (3.9-5); BUN/Creatinine Ratio 23; Blood Urea Nitrogen 16 mg/dL (7-17); Calcium 9.3 mg/dL (8.4-10.2); Hemolysis Index 4
--- NOTE | 2019-08-23 17:16 | XRay Report ---
CHEST 2 VIEWS INDICATION / CLINICAL INFORMATION: Chest Pain. COMPARISON: Chest x-ray on 07/10/2019. FINDINGS: SUPPORT DEVICES: None. HEART / MEDIASTINUM: No significant abnormality. LUNGS / PLEURA: No acute pulmonary or pleural abnormality. Stable calcified granuloma in the right lo wer lobe. No pneumothorax. ADDITIONAL FINDINGS: No significant additional findings. IMPRESSION: 1. No acute findings. Signer Name: Niels Flores MD Signed: 08/23/2019 5:12 PM Workstation Name: [id number]
--- NOTE | 2019-08-23 17:23 | Emergency Department Report ---
<JONATHAN OSMAN - Last Filed: 08/23/19 18:07> ED Chest Pain HPI - General Chief Complaint: Chest Pain Stated Complaint: CHEST PAIN Time Seen by Provider: 08/23/19 16:14 Source: patient, EMS Mode of arrival: Wheelchair Limitations: No Limitations - History of Present Illness Initial Comments: Patient is a 39-year-old F Indonesian female with past medical history of hypertension diabetes congestive heart failure coronary artery disease who is presenting with chest pain shortness of breath. Patient states she was at an office and abruptly started having sharp pain in the center chest. States there was some mild radiation to the right arm. She has shortness of breath associated with this pain. Pain is 6 out of 10 in severity. She denies nausea vomiting fevers chills cough cold or congestion. Patient states the pain is slightly improved since she arrived. Patient received aspirin was started on oxygen by paramedics. Severity scale (0 -10): 8 - Related Data Home Medications Medication Instructions Recorded Confirmed Last Taken Furosemide [Lasix TAB] 20 mg PO QDAY 01/29/19 07/05/19 06/21/19 Gabapentin 600 mg PO BID 01/29/19 07/05/19 06/21/19 Metformin HCl [metFORMIN ER 500 mg PO BID 01/29/19 07/05/19 06/21/19 Gastric] Sertraline [Zoloft] 150 mg PO QDAY 01/29/19 07/05/19 06/21/19 traZODone [Desyrel] 100 mg PO QHS 01/29/19 07/05/19 06/21/19 valACYclovir [Valtrex] 500 mg PO DAILY 01/29/19 07/05/19 06/21/19 Aspirin BABY CHEW TAB 81 mg PO DAILY 02/13/19 07/05/19 06/21/19 Co Q-10 100 mg PO DAILY 02/13/19 07/05/19 06/21/19 Divalproex ER 1,500 mg PO HS 02/13/19 07/05/19 06/21/19 Fish Oil 1,000 mg PO DAILY 02/13/19 07/05/19 06/21/19 Flax Seed Oil 1,000 mg PO DAILY 02/13/19 07/05/19 06/21/19 Garlic 500 mg PO DAILY 02/13/19 07/05/19 06/21/19 Burbank-3 1,040 mg PO DAILY 02/13/19 07/05/19 06/21/19 Victoza 2-Jose 1 vial SQ DAILY 02/13/19 07/05/19 06/21/19 Vitamin B-12 100 mcg PO DAILY 02/13/19 07/05/19 06/21/19 Vitamin C 250 mg Tablet Chew 500 mg PO DAILY 02/13/19 07/05/19 06/21/19 Vitamin D3 Complete Caplet 25 mcg PO DAILY 02/13/19 07/05/19 06/21/19 Insulin Detemir [Levemir Flextouch] 15 unit SQ BID 07/05/19 07/05/19 Unknown Previous Rx's Medication Instructions Recorded Last Taken Type Apixaban [Eliquis] 5 mg PO BID #60 tablet 04/23/19 06/21/19 Rx ALBUTEROL NEB's [Proventil 0.083% 2.5 mg IH QID PRN #1 box 05/08/19 06/21/19 Rx NEBS] Albuterol Sulfate [Proventil Hfa] 2 puff IH Q4HR PRN #1 hfa.aer.ad 05/19/19 06/21/19 Rx Ondansetron [Zofran ODT TAB] 4 mg PO Q8HR PRN #20 tab.rapdis 05/19/19 06/21/19 Rx AtorvaSTATin [Lipitor] 40 mg PO QHS #30 06/23/19 Unknown Rx Metoprolol [Lopressor TAB] 50 mg PO BID #60 06/23/19 Unknown Rx Insulin Glargine [Lantus VIAL] 15 units SUB-Q QHS #2 vial 07/06/19 Unknown Rx Lispro Insulin [HumaLOG] 0 unit SUB-Q ACHS units 07/06/19 Unknown Rx Nicotine [Habitrol] 14 mg TD QDAY #30 patch 07/06/19 Unknown Rx Allergies Allergy/AdvReac Type Severity Reaction Status Date / Time Penicillins Allergy Anaphylaxis Verified 08/23/19 15:59 Sulfa (Sulfonamide AdvReac Anaphylaxis Verified 08/23/19 15:59 Antibiotics) Heart Score - HEART Score History: Slightly suspicious EKG: Non-specific Age: < 45 Risk factors: > 3 risk factors or hx of atherosclerotic disease Troponin: < normal limit HEART Score: 3 ED Review of Systems Comment: All other systems reviewed and negative ED Past Medical Hx - Past Medical History Hx Hypertension: Yes Hx Heart Attack/AMI: Yes (2 ATTACKS,NO STENTS) Hx Congestive Heart Failure: Yes Hx Diabetes: Yes Hx Deep Vein Thrombosis: No Hx Pulmonary Embolism: Yes Hx Liver Disease: No Hx Psychiatric Treatment: Yes (bipolar depression, schizoaffective disorder) Hx Asthma: Yes Hx COPD: Yes Hx Tuberculosis: No Hx HIV: No Additional medical history: high cholestrol - Surgical History Hx Coronary Stent: Yes Hx Pacemaker: No Hx Internal Defibrillator: No Hx Appendectomy: Yes Additional Surgical History: C-Sectionx2. d&c - Social History Smoking Status: Never Smoker Substance Use Type: None - Medications Home Medications: Home Medications Medication Instructions Recorded Confirmed Last Taken Type Furosemide [Lasix TAB] 20 mg PO QDAY 01/29/19 07/05/19 06/21/19 History Gabapentin 600 mg PO BID 01/29/19 07/05/19 06/21/19 History Metformin HCl [metFORMIN ER 500 mg PO BID 01/29/19 07/05/19 06/21/19 History Gastric] Sertraline [Zoloft] 150 mg PO QDAY 01/29/19 07/05/19 06/21/19 History traZODone [Desyrel] 100 mg PO QHS 01/29/19 07/05/19 06/21/19 History valACYclovir [Valtrex] 500 mg PO DAILY 01/29/19 07/05/19 06/21/19 History Aspirin BABY CHEW TAB 81 mg PO DAILY 02/13/19 07/05/19 06/21/19 History Co Q-10 100 mg PO DAILY 02/13/19 07/05/19 06/21/19 History Divalproex ER 1,500 mg PO HS 02/13/19 07/05/19 06/21/19 History Fish Oil 1,000 mg PO DAILY 02/13/19 07/05/19 06/21/19 History Flax Seed Oil 1,000 mg PO DAILY 02/13/19 07/05/19 06/21/19 History Garlic 500 mg PO DAILY 02/13/19 07/05/19 06/21/19 History Burbank-3 1,040 mg PO DAILY 02/13/19 07/05/19 06/21/19 History Victoza 2-Jose 1 vial SQ DAILY 02/13/19 07/05/19 06/21/19 History Vitamin B-12 100 mcg PO DAILY 02/13/19 07/05/19 06/21/19 History Vitamin C 250 mg Tablet Chew 500 mg PO DAILY 02/13/19 07/05/19 06/21/19 History Vitamin D3 Complete Caplet 25 mcg PO DAILY 02/13/19 07/05/19 06/21/19 History Apixaban [Eliquis] 5 mg PO BID #60 tablet 04/23/19 07/05/19 06/21/19 Rx ALBUTEROL NEB's [Proventil 0.083% 2.5 mg IH QID PRN #1 box 05/08/19 07/05/19 06/21/19 Rx NEBS] Albuterol Sulfate [Proventil Hfa] 2 puff IH Q4HR PRN #1 hfa.aer.ad 05/19/19 07/05/19 06/21/19 Rx Ondansetron [Zofran ODT TAB] 4 mg PO Q8HR PRN #20 tab.rapdis 05/19/19 07/05/19 06/21/19 Rx AtorvaSTATin [Lipitor] 40 mg PO QHS #30 06/23/19 07/05/19 Unknown Rx Metoprolol [Lopressor TAB] 50 mg PO BID #60 06/23/19 07/05/19 Unknown Rx Insulin Detemir [Levemir Flextouch] 15 unit SQ BID 07/05/19 07/05/19 Unknown History Insulin Glargine [Lantus VIAL] 15 units SUB-Q QHS #2 vial 07/06/19 Unknown Rx Lispro Insulin [HumaLOG] 0 unit SUB-Q ACHS units 07/06/19 Unknown Rx Nicotine [Habitrol] 14 mg TD QDAY #30 patch 07/06/19 Unknown Rx ED Physical Exam - General Limitations: No Limitations General appearance: alert, in no apparent distress - Head Head exam: Present: atraumatic, normocephalic - Eye Eye exam: Present: normal appearance - ENT ENT exam: Present: mucous membranes moist - Neck Neck exam: Present: normal inspection - Respiratory Respiratory exam: Present: normal lung sounds bilaterally. Absent: respiratory distress, wheezes, rales, rhonchi, stridor - Cardiovascular Cardiovascular Exam: Present: normal rhythm, tachycardia, normal heart sounds. Absent: systolic murmur, diastolic murmur, rubs, gallop - GI/Abdominal GI/Abdominal exam: Present: soft, normal bowel sounds. Absent: distended, tenderness, guarding - Extremities Exam Extremities exam: Present: normal inspection - Back Exam Back exam: Present: normal inspection - Neurological Exam Neurological exam: Present: alert, oriented X3 - Psychiatric Psychiatric exam: Present: normal affect, normal mood - Skin Skin exam: Present: warm, dry, intact, normal color. Absent: rash ED Course - Reevaluation(s) Reevaluation #1: 08/23/19 17:20 Patient had a heart rate of 150 on arrival was tachypneic but was afebrile. Patient is denying any recent symptoms does sound like an infectious process is present. Patient was given 500 cc of normal saline and labs were drawn. Patient's first troponin was within normal limits. The second 1 will be checked as well. Patient is Wells criteria gives a score of 6 which indicates that she is in a moderate risk group and a CT angiogram has been ordered as well. Reevaluation #2: 08/23/19 18:07 Because of the patient's risk factors for pulmonary embolus VQ scan was ordered. Unable to get a line large enough to accommodate a CT scan. The VQ scan machine is also inoperable at this time we have just found out therefore a d- dimer has been ordered and the patient will be reassessed after the d-dimer results BERT score - Bert Score Age > 65: (0) No Aspirin use within the Past 7 Days: (1) Yes 3 or more CAD Risk Factors: (1) Yes 2 or more Angina events in past 24 hrs: (1) Yes Known CAD with more than 50% Stenosis: (0) No Elevated Cardiac Markers: (0) No ST Deviation Greater than 0.5mm: (0) No BERT Score: 3 ED Medical Decision Making - Lab Data Result diagrams: 08/23/19 16:21 08/23/19 16:21 Lab Results 08/23/19 08/23/19 08/23/19 Range/Units 16:21 16:21 16:21 WBC 9.9 (4.5-11.0) K/mm3 RBC 4.18 (3.65-5.03) M/mm3 Hgb 10.2 (10.1-14.3) gm/dl Hct 32.2 (30.3-42.9) % MCV 77 L (79-97) fl MCH 25 L (28-32) pg MCHC 32 (30-34) % RDW 17.8 H (13.2-15.2) % Plt Count 418 (140-440) K/mm3 Lymph % (Auto) 26.6 (13.4-35.0) % Wise % (Auto) 7.9 H (0.0-7.3) % Eos % (Auto) 0.9 (0.0-4.3) % Baso % (Auto) 1.1 (0.0-1.8) % Lymph # 2.6 (1.2-5.4) K/mm3 Wise # 0.8 (0.0-0.8) K/mm3 Eos # 0.1 (0.0-0.4) K/mm3 Baso # 0.1 (0.0-0.1) K/mm3 Seg Neutrophils % 63.5 (40.0-70.0) % Seg Neutrophils # 6.3 (1.8-7.7) K/mm3 PT 15.0 H (12.2-14.9) Sec. INR 1.16 H (0.87-1.13) APTT 35.0 (24.2-36.6) Sec. Sodium 140 (137-145) mmol/L Potassium 4.1 (3.6-5.0) mmol/L Chloride 100.8 (98-107) mmol/L Carbon Dioxide 24 (22-30) mmol/L Anion Gap 19 mmol/L BUN 16 (7-17) mg/dL Creatinine 0.7 (0.7-1.2) mg/dL Estimated GFR > 60 ml/min BUN/Creatinine Ratio 23 % Glucose 84 (65-100) mg/dL Calcium 9.3 (8.4-10.2) mg/dL Total Bilirubin < 0.20 (0.1-1.2) mg/dL AST 15 (5-40) units/L ALT 11 (7-56) units/L Alkaline Phosphatase 69 (35-129) units/L Troponin T < 0.010 (0.00-0.029) ng/mL Total Protein 7.6 (6.3-8.2) g/dL Albumin 4.1 (3.9-5) g/dL Albumin/Globulin Ratio 1.2 % Lipase 43 (13-60) units/L HCG, Qual (Negative) 08/23/19 Range/Units 16:21 WBC (4.5-11.0) K/mm3 RBC (3.65-5.03) M/mm3 Hgb (10.1-14.3) gm/dl Hct (30.3-42.9) % MCV (79-97) fl MCH (28-32) pg MCHC (30-34) % RDW (13.2-15.2) % Plt Count (140-440) K/mm3 Lymph % (Auto) (13.4-35.0) % Wise % (Auto) (0.0-7.3) % Eos % (Auto) (0.0-4.3) % Baso % (Auto) (0.0-1.8) % Lymph # (1.2-5.4) K/mm3 Wise # (0.0-0.8) K/mm3 Eos # (0.0-0.4) K/mm3 Baso # (0.0-0.1) K/mm3 Seg Neutrophils % (40.0-70.0) % Seg Neutrophils # (1.8-7.7) K/mm3 PT (12.2-14.9) Sec. INR (0.87-1.13) APTT (24.2-36.6) Sec. Sodium (137-145) mmol/L Potassium (3.6-5.0) mmol/L Chloride (98-107) mmol/L Carbon Dioxide (22-30) mmol/L Anion Gap mmol/L BUN (7-17) mg/dL Creatinine (0.7-1.2) mg/dL Estimated GFR ml/min BUN/Creatinine Ratio % Glucose (65-100) mg/dL Calcium (8.4-10.2) mg/dL Total Bilirubin (0.1-1.2) mg/dL AST (5-40) units/L ALT (7-56) units/L Alkaline Phosphatase (35-129) units/L Troponin T (0.00-0.029) ng/mL Total Protein (6.3-8.2) g/dL Albumin (3.9-5) g/dL Albumin/Globulin Ratio % Lipase (13-60) units/L HCG, Qual Negative (Negative) ED Disposition Clinical Impression: Chest pain, Nausea and vomiting Disposition: DC-01 TO HOME OR SELFCARE Condition: Stable Instructions: Chest Pain (ED), Acute Nausea and Vomiting (ED) Referrals: PRIMARY CARE, [Primary Care Provider] - 3-5 Days <ZACHERY MORIN - Last Filed: 08/23/19 22:34> ED Review of Systems ROS: Stated complaint: CHEST PAIN Other details as noted in HPI ED Course Vital Signs 08/23/19 08/23/19 08/23/19 16:08 16:38 17:00 Temperature 98.7 F Pulse Rate 150 H Respiratory 24 Rate Blood Pressure 122/79 125/83 Blood Pressure 177/115 [Left] O2 Sat by Pulse 96 Oximetry 08/23/19 08/23/19 08/23/19 17:55 18:00 19:00 Temperature Pulse Rate 107 H 103 H Respiratory 10 L Rate Blood Pressure 118/67 91/44 Blood Pressure [Left] O2 Sat by Pulse 94 95 Oximetry 08/23/19 08/23/19 08/23/19 20:00 21:00 22:14 Temperature Pulse Rate 108 H 107 H 109 H Respiratory 17 14 18 Rate Blood Pressure 114/66 114/66 114/66 Blood Pressure [Left] O2 Sat by Pulse 89 93 97 Oximetry ED Medical Decision Making - Lab Data Result diagrams: 08/23/19 16:21 08/23/19 16:21 - EKG Data -: EKG Interpreted by Id EKG shows normal: sinus rhythm Rate: tachycardia - EKG Data Interpretation: no acute changes - Radiology Data Radiology results: report reviewed - Medical Decision Making Patient is a 39-year-old female with past medical history of hypertension diabetes congestive heart failure coronary artery disease who is presenting with chest pain shortness of breath. Patient states she was at an office and abruptly started having sharp pain in the center chest. States there was some mild radiation to the right arm. She has shortness of breath associated with this pain. Pain is 6 out of 10 in severity. She denies nausea vomiting fevers chills cough cold or congestion. Patient states the pain is slightly improved since she arrived. Patient received aspirin was started on oxygen by paramedics. Patient labs reviewed and is unremarkable except for slightly elevated d-dimer. Troponin is negative. Patient had a CTA chest which is negative for pulmonary embolism. Patient required multiple medication for nausea and vomiting. Patient stated that she is feeling much better and she is ready to go home. Patient given prescription for Zofran and advised to follow-up with her primary care physician in the next 2 to 3 days and to return to the ER if she develop any new symptoms. Critical care attestation.: If time is entered above; I have spent that time in minutes in the direct care of this critically ill patient, excluding procedure time. ED Disposition Is pt being admited?: No
[2019-08-23] MEDS ORDERED: HYDROcodone/ACETAMINOPHEN 5-325 MG TAB PO ONE (18:07)
[2019-08-23] MEDS ORDERED: SODIUM CHLORIDE 0.9% 1000 ML 1,000 ML ONE (19:15)
[2019-08-23] MEDS ORDERED: MORPHINE 2 MG/1 ML INJ ONE (20:09)
[2019-08-23] MEDS ORDERED: MORPHINE 2 MG/1 ML INJ IV ONE (20:10)
[2019-08-23 20:40] VITALS: BP 114/66
--- NOTE | 2019-08-23 22:08 | Cat Scan Report ---
CTA CHEST WITH IV CONTRAST INDICATION / CLINICAL INFORMATION: chest pain. TECHNIQUE: Axial CT images were obtained through the chest after injection of 100 cc Omnipaque 350 milligrams p ercent IV contrast. 3 plane MIP and/or 3D reconstructions were produced. [facility] CT [facility] are performed using CT dose reduction for ALARA by means of automated exposure control. COMPARISON: 07/11/2019 FINDINGS: PULMONARY ARTERIES: No pulmonary emboli. THORACIC AORTA: No significant abnormality. HEART: No significant abnormality. CORONARY ARTERIES: No significant calcification. PLEURA: No pleural effusion. No pneumothorax. LYMPH NODES: No significant adenopathy. LUNGS: Calcified granuloma is present right lower lobe No acute air space or interstitial disease. ADDITIONAL FINDINGS: None. UPPER ABDOMEN: No acute findings. SKELETAL STRUCTURES: No significant osseous abnormality. IMPRESSION: 1. No CT evidence for pulmonary embolism. 2. No acute findings. Signer Name: Mayo Thorpe MD Signed: 08/23/2019 10:04 PM Workstation Name: [id number]
[2019-08-23] MEDS ORDERED: METOCLOPRAMIDE 10 MG/2 ML INJ IV ONE (22:30)
[2019-08-23 23:07] LABS: Bilirubin,Urine NEG (Negative); Blood,Urine NEG (Negative); Color,Urine Yellow (Yellow); Mucus,Urine FEW /HPF; Protein,Urine <15 mg/dL mg/dL (Negative); Urobilinogen,Urine < 2.0 mg/dL (<2.0); WBC,Urine < 1.0 /HPF (0.0-6.0)
== END 2019-08-23 23:02 | disposition home or self-care (01) ==
LOC: ED 16:00
DX: R07.9 Chest pain, unspecified (principal); R11.2 Nausea with vomiting, unspecified; E78.00 Pure hypercholesterolemia, unspecified; I11.0 Hypertensive heart disease with heart failure; I50.9 Heart failure, unspecified; E11.9 Type 2 diabetes mellitus without complications; F31.9 Bipolar disorder, unspecified; F20.9 Schizophrenia, unspecified; J44.9 Chronic obstructive pulmonary disease, unspecified; I25.2 Old myocardial infarction; I25.10 Atherosclerotic heart disease of native coronary artery without angina pectoris; Z88.0 Allergy status to penicillin; Z88.2 Allergy status to sulfonamides; Z79.899 Other long term (current) drug therapy; Z90.49 Acquired absence of other specified parts of digestive tract; Z98.890 Other specified postprocedural states; Z79.4 Long term (current) use of insulin
CPT/HCPCS: 36415; 71046; 71275; 80053; 81001; 83690; 83880; 84484; 84703; 85025; 85379; 85610; 85730; 93005; 93010; 96374; 96375; 96376; 99285; J2270; J2405; J2765; J7030; Q9967; 96361

== ENCOUNTER 2020-02-01 09:31 | Emergency (ER) | payer MEDICARE ==
[2020-02-01 09:40] VITALS: BP 112/83
[2020-02-01 10:07] LABS: Bilirubin,Urine NEG (Negative); Blood,Urine NEG (Negative); Color,Urine Yellow (Yellow); Mucus,Urine FEW /HPF; Protein,Urine <15 mg/dL mg/dL (Negative); Urobilinogen,Urine < 2.0 mg/dL (<2.0)
[2020-02-01] MEDS ORDERED: ALBUTEROL 2.5 MG/3 ML NEBU IH ONE (11:57)
[2020-02-01] MEDS ORDERED: IPRATROPIUM 0.02% NEBU 2.5 ML IH ONE (11:57)
[2020-02-01] MEDS ORDERED: MAGNESIUM SULFATE 2 GM/50 ML BAG IV ONE (11:57)
[2020-02-01] MEDS ORDERED: SODIUM CHLORIDE 0.9% 1000 ML 1,000 ML IV ONE (11:57)
[2020-02-01] MEDS ORDERED: dexAMETHasone 20 MG/5 ML VIAL IV ONE (11:58)
--- NOTE | 2020-02-01 12:41 | Emergency Department Report ---
ED Shortness of Breath HPI - General Chief Complaint: Dyspnea/Respdistress Stated Complaint: SOB/SORE THROAT Source: patient Mode of arrival: Ambulatory Limitations: No Limitations - History of Present Illness Initial Comments: 39-year-old -[place] female presents to the emergency room for sore throat and difficulty breathing. Patient also comes in stating that she has vaginal discharge and itching with odor. She has a past medical history of asthma congestive heart failure COPD diabetes has had 2 heart attacks with stents hypertension bipolar depression schizophrenia just order high cholesterol. Patient reports that she has been intubated twice. MD Complaint: shortness of breath, cough - Related Data Home Medications Medication Instructions Recorded Confirmed Last Taken Furosemide [Lasix TAB] 20 mg PO QDAY 01/29/19 07/05/19 06/21/19 Gabapentin 600 mg PO BID 01/29/19 07/05/19 06/21/19 Metformin HCl [metFORMIN ER 500 mg PO BID 01/29/19 07/05/19 06/21/19 Gastric] Sertraline [Zoloft] 150 mg PO QDAY 01/29/19 07/05/19 06/21/19 traZODone [Desyrel] 100 mg PO QHS 01/29/19 07/05/19 06/21/19 valACYclovir [Valtrex] 500 mg PO DAILY 01/29/19 07/05/19 06/21/19 Aspirin BABY CHEW TAB 81 mg PO DAILY 02/13/19 07/05/19 06/21/19 Co Q-10 100 mg PO DAILY 02/13/19 07/05/19 06/21/19 Divalproex ER 1,500 mg PO HS 02/13/19 07/05/19 06/21/19 Fish Oil 1,000 mg PO DAILY 02/13/19 07/05/19 06/21/19 Flax Seed Oil 1,000 mg PO DAILY 02/13/19 07/05/19 06/21/19 Garlic 500 mg PO DAILY 02/13/19 07/05/19 06/21/19 Shiloh-3 1,040 mg PO DAILY 02/13/19 07/05/19 06/21/19 Victoza 2-Jose 1 vial SQ DAILY 02/13/19 07/05/19 06/21/19 Vitamin B-12 100 mcg PO DAILY 02/13/19 07/05/1906/21/19 Vitamin C 250 mg Tablet Chew 500 mg PO DAILY 02/13/19 07/05/19 06/21/19 Vitamin D3 Complete Caplet 25 mcg PO DAILY 02/13/19 07/05/19 06/21/19 Insulin Detemir [Levemir Flextouch] 15 unit SQ BID 07/05/19 07/05/19 Unknown Previous Rx's Medication Instructions Recorded Last Taken Type Apixaban [Eliquis] 5 mg PO BID #60 tablet 04/23/19 06/21/19 Rx ALBUTEROL NEB's [Proventil 0.083% 2.5 mg IH QID PRN #1 box 05/08/19 06/21/19 Rx NEBS] Ondansetron [Zofran ODT TAB] 4 mg PO Q8HR PRN #20 tab.rapdis 05/19/19 06/21/19 Rx AtorvaSTATin [Lipitor] 40 mg PO QHS #30 06/23/19 Unknown Rx Metoprolol [Lopressor TAB] 50 mg PO BID #60 06/23/19 Unknown Rx Insulin Glargine [Lantus VIAL] 15 units SUB-Q QHS #2 vial 07/06/19 Unknown Rx Lispro Insulin [HumaLOG] 0 unit SUB-Q ACHS units 07/06/19 Unknown Rx Nicotine [Habitrol] 14 mg TD QDAY #30 patch 07/06/19 Unknown Rx Ondansetron [Zofran Odt] 4 mg PO Q8HR PRN #14 tab.rapdis 08/23/19 Unknown Rx Albuterol Sulfate [Proventil Hfa] 2 puff IH Q4HR PRN #1 hfa.aer.ad 02/01/20 Unknown Rx predniSONE [Deltasone] 20 mg PO QDAY 5 Days #5 tab 02/01/20 Unknown Rx Allergies Allergy/AdvReac Type Severity Reaction Status Date / Time acetaminophen [From Tylenol] Allergy Hives Verified 02/01/20 09:34 Penicillins Allergy Anaphylaxis Verified 08/23/19 15:59 sulfamethoxazole Allergy Anaphylaxis Verified 02/01/20 09:34 [From Bactrim] trimethoprim [From Bactrim] Allergy Anaphylaxis Verified 02/01/20 09:34 Sulfa (Sulfonamide AdvReac Anaphylaxis Verified 08/23/19 15:59 Antibiotics) ED Review of Systems ROS: Stated complaint: SOB/SORE THROAT Other details as noted in HPI ED Past Medical Hx - Past Medical History Hx Hypertension: Yes Hx Heart Attack/AMI: Yes (2 ATTACKS,NO STENTS) Hx Congestive Heart Failure: Yes Hx Diabetes: Yes Hx Deep Vein Thrombosis: No Hx Pulmonary Embolism: Yes Hx Liver Disease: No Hx Psychiatric Treatment: Yes (bipolar depression, schizoaffective disorder) Hx Asthma: Yes Hx COPD: Yes Hx Tuberculosis: No Hx HIV: No Additional medical history: high cholestrol - Surgical History Hx Coronary Stent: Yes Hx Pacemaker: No Hx Internal Defibrillator: No Hx Appendectomy: Yes Additional Surgical History: C-Sectionx2. d&c - Social History Smoking Status: Current Every Day Smoker Substance Use Type: None - Medications Home Medications: Home Medications Medication Instructions Recorded Confirmed Last Taken Type Furosemide [Lasix TAB] 20 mg PO QDAY 01/29/19 07/05/19 06/21/19 History Gabapentin 600 mg PO BID 01/29/19 07/05/19 06/21/19 History Metformin HCl [metFORMIN ER 500 mg PO BID 01/29/19 07/05/19 06/21/19 History Gastric] Sertraline [Zoloft] 150 mg PO QDAY 01/29/19 07/05/19 06/21/19 History traZODone [Desyrel] 100 mg PO QHS 01/29/19 07/05/19 06/21/19 History valACYclovir [Valtrex] 500 mg PO DAILY 01/29/19 07/05/19 06/21/19 History Aspirin BABY CHEW TAB 81 mg PO DAILY 02/13/19 07/05/19 06/21/19 History Co Q-10 100 mg PO DAILY 02/13/19 07/05/19 06/21/19 History Divalproex ER 1,500 mg PO HS 02/13/19 07/05/19 06/21/19 History Fish Oil 1,000 mg PO DAILY 02/13/19 07/05/19 06/21/19 History Flax Seed Oil 1,000 mg PO DAILY 02/13/19 07/05/19 06/21/19 History Garlic 500 mg PO DAILY 02/13/19 07/05/19 06/21/19 History Shiloh-3 1,040 mg PO DAILY 02/13/19 07/05/19 06/21/19 History Victoza 2-Jose 1 vial SQ DAILY 02/13/19 07/05/19 06/21/19 History Vitamin B-12 100 mcg PO DAILY 02/13/19 07/05/19 06/21/19 History Vitamin C 250 mg Tablet Chew 500 mg PO DAILY 02/13/19 07/05/19 06/21/19 History Vitamin D3 Complete Caplet 25 mcg PO DAILY 02/13/19 07/05/19 06/21/19 History Apixaban [Eliquis] 5 mg PO BID #60 tablet 04/23/19 07/05/19 06/21/19 Rx ALBUTEROL NEB's [Proventil 0.083% 2.5 mg IH QID PRN #1 box 05/08/19 07/05/19 06/21/19 Rx NEBS] Ondansetron [Zofran ODT TAB] 4 mg PO Q8HR PRN #20 tab.rapdis 05/19/19 07/05/19 06/21/19 Rx AtorvaSTATin [Lipitor] 40 mg PO QHS #30 06/23/19 07/05/19 Unknown Rx Metoprolol [Lopressor TAB] 50 mg PO BID #60 06/23/19 07/05/19 Unknown Rx Insulin Detemir [Levemir Flextouch] 15 unit SQ BID 07/05/19 07/05/19 Unknown History Insulin Glargine [Lantus VIAL] 15 units SUB-Q QHS #2 vial 07/06/19 Unknown Rx Lispro Insulin [HumaLOG] 0 unit SUB-Q ACHS units 07/06/19 Unknown Rx Nicotine [Habitrol] 14 mg TD QDAY #30 patch 07/06/19 Unknown Rx Ondansetron [Zofran Odt] 4 mg PO Q8HR PRN #14 tab.rapdis 08/23/19 Unknown Rx Albuterol Sulfate [Proventil Hfa] 2 puff IH Q4HR PRN #1 hfa.aer.ad 02/01/20 Unknown Rx predniSONE [Deltasone] 20 mg PO QDAY 5 Days #5 tab 02/01/20 Unknown Rx ED Physical Exam - General Limitations: No Limitations General appearance: alert, in no apparent distress, in distress - Head Head exam: Present: atraumatic, normocephalic - Eye Eye exam: Present: normal appearance - ENT ENT exam: Present: normal orophraynx, mucous membranes moist - Neck Neck exam: Present: normal inspection, full ROM - Respiratory Respiratory exam: Present: wheezes - Cardiovascular Cardiovascular Exam: Present: regular rate, normal rhythm. Absent: systolic murmur, diastolic murmur, rubs, gallop - GI/Abdominal GI/Abdominal exam: Present: soft, normal bowel sounds - Back Exam Back exam: Present: normal inspection - Neurological Exam Neurological exam: Present: alert, oriented X3 - Psychiatric Psychiatric exam: Present: normal affect, normal mood - Skin Skin exam: Present: warm, dry, intact, normal color. Absent: rash ED Course Vital Signs 02/01/20 09:37 Temperature 98.9 F Pulse Rate 97 H Respiratory 18 Rate Blood Pressure 112/83 O2 Sat by Pulse 97 Oximetry ED Medical Decision Making - Medical Decision Making 39-year-old -[place] female presents to the emergency room for sore throat and difficulty breathing. Patient also comes in stating that she has vaginal discharge and itching with odor. She has a past medical history of asthma congestive heart failure COPD diabetes has had 2 heart attacks with stents hypertension bipolar depression schizophrenia just order high cholesterol. Patient reports that she has been intubated twice. Albuterol Atrovent magnesium normal saline. Critical care attestation.: If time is entered above; I have spent that time in minutes in the direct care of this critically ill patient, excluding procedure time. ED Disposition Clinical Impression: Acute respiratory distress, SOB (shortness of breath) Disposition: DC-01 TO HOME OR SELFCARE Is pt being admited?: No Does the pt Need Aspirin: No Condition: Stable Instructions: Asthma (ED), Chronic Obstructive Pulmonary Disease (ED) Additional Instructions: Continue with your asthma medication as prescribed. Follow-up with your primary care provider. Prescriptions: predniSONE [Deltasone] 20 mg PO QDAY 5 Days #5 tab Albuterol Sulfate [Proventil Hfa] 2 puff IH Q4HR PRN #1 hfa.aer.ad PRN Reason: Wheezing Referrals: JANKI OCONNOR MD [Primary Care Provider] - 3-5 Days [facility] [Provider Group] - 3-5 Days Forms: Work/School Release Form(ED)
== END 2020-02-01 14:02 | disposition home or self-care (01) ==
LOC: ED 09:31
DX: R06.03 Acute respiratory distress (principal); I11.0 Hypertensive heart disease with heart failure; I50.9 Heart failure, unspecified; I25.2 Old myocardial infarction; E11.9 Type 2 diabetes mellitus without complications; F25.0 Schizoaffective disorder, bipolar type; J44.9 Chronic obstructive pulmonary disease, unspecified; F17.200 Nicotine dependence, unspecified, uncomplicated; Z90.49 Acquired absence of other specified parts of digestive tract; Z98.890 Other specified postprocedural states; Z79.82 Long term (current) use of aspirin; Z79.899 Other long term (current) drug therapy; Z88.0 Allergy status to penicillin; Z88.2 Allergy status to sulfonamides; Z88.6 Allergy status to analgesic agent; Z88.8 Allergy status to other drugs, medicaments and biological substances
CPT/HCPCS: 81001; 93005; 96365; 96375; 99283; J1100; J3475; 94640